=== PATIENT | female | born 1935 | race Caucasian/White ===

== ENCOUNTER 2018-03-26 11:23 | Emergency (ER) | payer MEDICARE ==
[2018-03-26] MEDS ORDERED: HYDROcodone/APAP 5-325MG 1 EACH TAB PO STA (11:54)
--- NOTE | 2018-03-26 11:54 | ED ---
Lower Extremity Injury HPI - General Chief Complaint: Extremity Injury, Lower Stated Complaint: LEFT LEG INJURY FROM FALL Time Seen by Provider: 03/26/18 11:41 Source: patient, RN notes reviewed, old records reviewed Mode of arrival: wheelchair Limitations: no limitations - History of Present Illness Initial Comments: This is an 83-year-old female the ER for evaluation patient resents today for evaluation and left tib-fib pain. Fall with left lower leg pain. Patient does have history of prior falls with more falls as of recent. She did not hit her head no loss of consciousness. Patient states she fell forward landing on her left knee. Denies any other complaints or injury MD Complaint: knee injury, leg injury -: minutes(s) Injury: Leg: Left, Knee: Left Type of Injury: blunt Place: home Severity: severe Severity scale (1-10): 8 Improves With: nothing Worsens With: weight bearing, movement, palpation Context: fall, direct blow Other Symptoms: other (None) Associated Symptoms: swelling - Related Data Home Medications Medication Instructions Recorded Confirmed Aspirin 81 mg PO DAILY 02/23/17 03/26/18 Calcium Carbonate [Calcium] 600 mg PO DAILY 02/23/17 03/26/18 Vit C/E/Zn/Coppr/Lutein/Zeaxan 1 cap PO DAILY 02/23/17 03/26/18 [Preservision Areds 2 Softgel] Losartan Potassium [Cozaar] 25 mg PO DAILY 03/26/18 03/26/18 Multivit-Min/FA/Lycopen/Lutein 1 tab PO DAILY 03/26/18 03/26/18 [Centrum Silver Tablet] Omeprazole [PriLOSEC] 20 mg PO AC-BRKFST 03/26/18 03/26/18 Pantoprazole Sodium [Protonix] 40 mg PO DAILY 03/26/18 03/26/18 Allergies Allergy/AdvReac Type Severity Reaction Status Date / Time lisinopril AdvReac Swelling Verified 03/26/18 11:50 Review of Systems ROS Statement: Those systems with pertinent positive or pertinent negative responses have been documented in the HPI. ROS Other: All systems not noted in ROS Statement are negative. Past Medical History Past Medical History: Hyperlipidemia, Hypertension, Osteoarthritis (OA) Additional Past Medical History / Comment(s): polio AGE 22. 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 History of Any Multi-Drug Resistant Organisms: None Reported Past Surgical History: Bowel Resection, Cholecystectomy Additional Past Surgical History / Comment(s): bladder suspension surgery 3, colonoscopy about 10 years ago showed diverticulosis, cholecystectomy, bilateral cataract surgery. Past Anesthesia/Blood Transfusion Reactions: No Reported Reaction Past Psychological History: No Psychological Hx Reported Smoking Status: Never smoker Past Alcohol Use History: None Reported Past Drug Use History: None Reported - Past Family History Father Family Medical History: Respiratory Disorder Mother Family Medical History: No Reported History Additional Family Medical History / Comment(s): lives to be 101 yo, liver failure Sister(s) Family Medical History: No Reported History Daughter(s) Family Medical History: No Reported History Son(s) Family Medical History: No Reported History General Exam Limitations: no limitations General appearance: alert, in no apparent distress Head exam: Present: atraumatic, normocephalic, normal inspection Eye exam: Present: normal appearance, PERRL, EOMI. Absent: scleral icterus, conjunctival injection, periorbital swelling ENT exam: Present: normal exam, mucous membranes moist Neck exam: Present: normal inspection. Absent: tenderness, meningismus, lymphadenopathy Respiratory exam: Present: normal lung sounds bilaterally. Absent: respiratory distress, wheezes, rales, rhonchi, stridor Cardiovascular Exam: Present: normal rhythm, tachycardia, normal heart sounds. Absent: systolic murmur, diastolic murmur, rubs, gallop, clicks GI/Abdominal exam: Present: soft, normal bowel sounds. Absent: distended, tenderness, guarding, rebound, rigid Extremities exam: Present: full ROM, normal capillary refill. Absent: normal inspection (Patient has significant deformity left lower extremity with significant swelling pain and tenderness. Bruising and anterior soriano), tenderness, pedal edema, joint swelling, calf tenderness Back exam: Present: normal inspection Neurological exam: Present: alert, oriented X3, CN II-XII intact Psychiatric exam: Present: normal affect, normal mood Skin exam: Present: warm, dry, intact, normal color. Absent: rash Course Vital Signs 03/26/18 03/26/18 11:38 15:00 Temperature 98.2 F Pulse Rate 105 H 94 Respiratory 18 20 Rate Blood Pressure 181/75 150/61 O2 Sat by Pulse 97 96 Oximetry - Reevaluation(s) Reevaluation #1: 03/26/18 15:17 Medical records reviewed Reevaluation #2: 03/26/18 15:17 Patient does have pain control Reevaluation #3: 03/26/18 15:18 Spoke with [facility] were agreeable for transfer of orthopedic trauma Medical Decision Making - Medical Decision Making 83 female the ER for evaluation, presents today for evaluation regards to fall. Patient is positive tib-fib fracture comminuted closed. Patient be transferred for orthopedic surgery in transfer regarding significant fracture - Radiology Data Radiology results: report reviewed (X-ray left tib-fib shows comminuted displaced fractures the proximal tibial metaphysis and fibular metaphysis), image reviewed Disposition Clinical Impression: Fall, Tibia/fibula fracture Narrative: Comminuted Displaced TibFib Fractures Disposition: OTHER INSTITUTION NOT DEFINED Condition: Fair Is patient prescribed a controlled substance at d/c from ED?: No Referrals: Narciso Pacheco DO [Primary Care Provider] - 1-2 days - Out of Hospital Transfer - Req. Specs Out of Hospital Transfer - Requested Specifics: Other Emergency Center ([facility])
--- NOTE | 2018-03-26 13:53 | XR ---
EXAMINATION TYPE: XR knee complete LT, XR tibia fibula LT DATE OF EXAM: 03/26/2018 CLINICAL HISTORY: Fall injury with pain. TECHNIQUE: Three views of the left knee are obtained. 2 views left tibia and fibula are acquired. COMPARISON: None. FINDINGS: Osseous structures are demineralized which is noted to lower radiographic sensitivity. There is acute comminuted displaced fracture through the fibular head proximal metaphysis with slight impaction and anterior displacement of the distal fracture fragment. There is acute comminuted minim ally displaced fracture through proximal tibial metaphysis with impaction and slight anterior displac ement of the distal fracture fragment. No additional acute distal fracture or dislocation in the left leg is present. No additional fracture or dislocation in the left knee is seen. Mild to moderate tricompartment joint space loss is noted. Moderate diffuse subcutaneous edema centered near fracture site is present. IMPRESSION: There are acute comminuted minimally displaced fractures through proximal tibial metaphy sis and proximal fibular metaphysis. (Initial encounter closed type post traumatic fracture).
[2018-03-26 15:02] VITALS: RESP 20
[2018-03-26] MEDS ORDERED: SODIUM CHLORIDE 0.9% 1,000 ML IV STA ×2 (15:15)
[2018-03-26] MEDS ORDERED: MORPHINE SULFATE 4 MG/ML SYRINGE IV STA (15:15)
[2018-03-26 16:10] LABS: Basophils # (A) 0.1 k/uL (0-0.2); Basophils % (A) 0 %; Eosinophils # (A) 0.1 k/uL (0-0.7); Eosinophils % (A) 1 %; HCT 37.9 % (34.0-46.0); HGB 12.7 gm/dL (11.4-16.0); Lymphocytes # (A) 1.9 k/uL (1.0-4.8); Lymphocytes % (A) 13 %; MCH 34.6 pg (25.0-35.0); MCHC 33.4 g/dL (31.0-37.0); MCV 103.5 fL (80.0-100.0); Macrocytosis Slight; Mean Platelet Volume 7.5; Monocytes # (A) 0.5 k/uL (0-1.0); Monocytes % (A) 4 %; Neutrophils # (A) 11.8 k/uL (1.3-7.7); Neutrophils % (A) 82 %; Platelet Count 325 k/uL (150-450); RBC 3.66 m/uL (3.80-5.40); RDW 13.4 % (11.5-15.5); WBC 14.5 k/uL (3.8-10.6)
[2018-03-26 16:19] LABS: ALT 35 U/L (9-52); AST 33 U/L (14-36); Albumin 3.6 g/dL (3.5-5.0); Alkaline Phosphatase 94 U/L (38-126); Anion Gap 6 mmol/L; Blood Urea Nitrogen 17 mg/dL (7-17); Calcium 9.5 mg/dL (8.4-10.2); Carbon Dioxide 25 mmol/L (22-30); Chloride 109 mmol/L (98-107); Glucose 102 mg/dL (74-99); Magnesium 1.8 mg/dL (1.6-2.3); Phosphorus 3.7 mg/dL (2.5-4.5); Potassium 4.8 mmol/L (3.5-5.1); Sodium 140 mmol/L (137-145); Total Bilirubin 0.3 mg/dL (0.2-1.3); Total Protein 6.9 g/dL (6.3-8.2)
[2018-03-26 16:25] LABS: Creatine Kinase 83 U/L (30-135)
[2018-03-26 16:29] LABS: INR 0.9 (<1.2); Prothrombin Time 10.2 sec (9.0-12.0)
[2018-03-26 16:32] VITALS: BP 192/86; PULSE 103; TEMP 98
[2018-03-26 16:38] LABS: Troponin I <0.012 ng/mL (0.000-0.034)
== END 2018-03-26 16:31 | disposition short-term general hospital (02) ==
LOC: EC 11:23
DX: S89.002A Unspecified physeal fracture of upper end of left tibia, initial encounter for closed fracture (principal); S89.202A Unspecified physeal fracture of upper end of left fibula, initial encounter for closed fracture; S89.92XA Unspecified injury of left lower leg, initial encounter; I10 Essential (primary) hypertension; M19.90 Unspecified osteoarthritis, unspecified site; Z79.82 Long term (current) use of aspirin; Z79.899 Other long term (current) drug therapy; Z88.8 Allergy status to other drugs, medicaments and biological substances; Z90.49 Acquired absence of other specified parts of digestive tract; W19.XXXA Unspecified fall, initial encounter; Y92.000 Kitchen of unspecified non-institutional (private) residence as the place of occurrence of the external cause
CPT/HCPCS: 99285; 96374; 96361; 36415; 80053; 82550; 82553; 83735; 84100; 84484; 85025; 85610; 85730; 73590; 73562; J2270

== ENCOUNTER → 2018-08-28 | Outpatient (CLI) | payer MEDICARE ==
--- NOTE | 2018-08-29 11:59 | MM ---
Reason for exam: screening (asymptomatic). Last mammogram was performed 1 year and 6 months ago. History: Patient is postmenopausal. Benign stereotactic core biopsy of the right breast, June 27, 1999. 2 benign cyst aspirations of the left breast. Excisional biopsy of the left breast. Physical Findings: A clinical breast exam by your physician is recommended on an annual basis and results should be correlated with mammographic findings. MG 3D Screening Mammo W/Cad Bilateral CC and MLO view(s) were taken. Prior study comparison: March 12, 2017, bilateral MG 3d screening mammo w/cad. February 07, 2016, bilateral MG 3d screening mammo w/cad. The breast tissue is heterogeneously dense. This may lower the sensitivity of mammography. Finding: There are typically benign vascular, round, linear calcifications in both breasts. There is no discrete abnormality. ASSESSMENT: Benign, BI-RAD 2 RECOMMENDATION: Routine screening mammogram of both breasts in 1 year.
== END | disposition home or self-care (01) ==
LOC: RADMAMWWP 14:53
PROVIDERS: ATTEND Family Medicine
DX: Z12.31 Encounter for screening mammogram for malignant neoplasm of breast (principal)
CPT/HCPCS: 77063; 77067

== ENCOUNTER → 2019-11-11 | Outpatient (CLI) | payer MEDICARE ==
--- NOTE | 2019-12-14 14:41 | EM ---
EVENT MONITOR EVENT MONITOR: The patient was monitored between November 10 and December 11, 2019. The rhythm strip revealed sinus mechanism with a single PVC. There was one episode of paroxysmal atrial tachycardia on November 22, 2019. No pauses were noted and no episodes of ventricular tachycardia were noted. The PVCs and ventricular bigeminy were asymptomatic. MMODL / IJN: [id number] /
== END | disposition home or self-care (01) ==
LOC: RADECHMAIN 11:51
PROVIDERS: ATTEND Family Medicine
DX: I48.0 Paroxysmal atrial fibrillation (principal)
CPT/HCPCS: 93270

== ENCOUNTER 2019-12-16 16:07 | Inpatient (IN) | payer MEDICARE ==
[2019-12-16] MEDS ORDERED: ACETAMINOPHEN TAB 325 MG TAB PO STA (16:20)
--- NOTE | 2019-12-16 16:23 | ED ---
General Adult HPI - General Chief complaint: Weakness Stated complaint: Weakness Time Seen by Provider: 12/16/19 16:14 Source: patient, EMS, RN notes reviewed Mode of arrival: EMS Limitations: no limitations - History of Present Illness Initial comments: Patient is a pleasant 84-year-old female presenting to the emergency Department with complaints of general weakness. Patient did feel a little bit fatigued yesterday. Patient feels a little bit more weak today. Weakness is generalized, not isolated. Patient does have chronic unchanged left leg w eakness from history of polio 65 years ago. No confusion. No speech problems. No abdominal pain. No cough or dyspnea. No dysuria. No history of similar symptoms previously. Patient did have a mild fall prior to arrival however denies any injury. - Related Data Home Medications Medication Instructions Recorded Confirmed Calcium Carbonate [Calcium] 600 mg PO DAILY 02/23/17 12/16/19 Vit C/E/Zn/Coppr/Lutein/Zeaxan 1 cap PO DAILY 02/23/17 12/16/19 [Preservision Areds 2 Softgel] Multivit-Min/FA/Lycopen/Lutein 1 tab PO DAILY 03/26/18 12/16/19 [Centrum Silver Tablet] Aspirin EC [Ecotrin Low Dose] 81 mg PO DAILY 12/16/19 12/16/19 Losartan [Cozaar] 50 mg PO DAILY 12/16/19 12/16/19 Vitamin B Complex 1 cap PO DAILY 12/16/19 12/16/19 Allergies Allergy/AdvReac Type Severity Reaction Status Date / Time adhesive Allergy Rash/Hives Verified 12/16/19 17:53 lisinopril Allergy Anaphylaxis Verified 12/16/19 17:53 Review of Systems ROS Statement: Those systems with pertinent positive or pertinent negative responses have been documented in the HPI. ROS Other: All systems not noted in ROS Statement are negative. Constitutional: Denies: fever Eyes: Denies: eye pain ENT: Denies: ear pain Respiratory: Denies: cough, dyspnea Cardiovascular: Denies: chest pain Endocrine: Reports: fatigue Gastrointestinal: Denies: abdominal pain Genitourinary: Denies: dysuria Musculoskeletal: Denies: back pain Skin: Denies: rash Neurological: Reports: as per HPI. Denies: headache, confusion Past Medical History Past Medical History: Hyperlipidemia, Hypertension, Osteoarthritis (OA) Additional Past Medical History / Comment(s): polio AGE 22. 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 History of Any Multi-Drug Resistant Organisms: None Reported Past Surgical History: Bowel Resection, Cholecystectomy Additional Past Surgical History / Comment(s): bladder suspension surgery 3, colonoscopy about 10 years ago showed diverticulosis, cholecystectomy, bilateral cataract surgery. Past Anesthesia/Blood Transfusion Reactions: No Reported Reaction Past Psychological History: No Psychological Hx Reported Smoking Status: Never smoker Past Alcohol Use History: None Reported Past Drug Use History: None Reported - Past Family History Father Family Medical History: Respiratory Disorder Mother Family Medical History: No Reported History Additional Family Medical History / Comment(s): lives to be 101 yo, liver failure Sister(s) Family Medical History: No Reported History Daughter(s) Family Medical History: No Reported History Son(s) Family Medical History: No Reported History General Exam Limitations: no limitations General appearance: alert, in no apparent distress Head exam: Present: normocephalic Eye exam: Present: normal appearance, PERRL, EOMI. Absent: nystagmus ENT exam: Present: normal oropharynx Neck exam: Present: normal inspection Respiratory exam: Present: normal lung sounds bilaterally Cardiovascular Exam: Present: regular rate, normal rhythm GI/Abdominal exam: Present: soft. Absent: tenderness Extremities exam: Present: normal inspection Neurological exam: Present: alert, CN II-XII intact. Absent: motor sensory def icit Expanded Patient oriented to: Present: person, place, time Speech: Present: fluid speech Cranial nerves: EOM's Intact: Normal, Facial Sensation: Normal Sensory exam: Upper Extremity Light Touch: Normal, Lower Extremity Light Touch: Normal Motor strength exam: RUE: 5, LUE: 5, RLE: 5, LLE: 5 Eye Response: (4) open spontaneously Motor Response: (6) obeys commands Verbal Response: (5) oriented Psychiatric exam: Present: normal affect, normal mood Skin exam: Present: normal color. Absent: rash Course Vital Signs 12/16/19 16:08 Temperature 99.9 F H Pulse Rate 77 Respiratory 16 Rate Blood Pressure 144/79 O2 Sat by Pulse 98 Oximetry EKG Findings - EKG Comments: EKG Findings:: Normal sinus rhythm 98. [place] 146. QRS 74. QT 326. QTc 416. Normal axis. Normal QRS. No acute ST change. Medical Decision Making - Medical Decision Making Patient reevaluated and updated. Case was discussed in detail with Dr. Lima, covering for Dr. Castañeda, who will admit. - Lab Data Result diagrams: 12/16/19 16:26 12/16/19 16:26 Lab Results 12/16/19 12/16/19 12/16/19 Range/Units 16:26 16: 16:26 WBC 15.8 H (3.8-10.6) k/uL RBC 3.47 L (3.80-5.40) m/uL Hgb 11.8 (11.4-16.0) gm/dL Hct 36.6 (34.0-46.0) % MCV 105.3 H (80.0-100.0) fL MCH 34.1 (25.0-35.0) pg MCHC 32.3 (31.0-37.0) g/dL RDW 12.7 (11.5-15.5) % Plt Count 276 (150-450) k/uL Neutrophils % 90 % Lymphocytes % 4 % Monocytes % 5 % Eosinophils % 1 % Basophils % 0 % Neutrophils # 14.2 H (1.3-7.7) k/uL Lymphocytes # 0.6 L (1.0-4.8) k/uL Monocytes # 0.7 (0-1.0) k/uL Eosinophils # 0.1 (0-0.7) k/uL Basophils # 0.0 (0-0.2) k/uL Macrocytosis Slight PT 10.2 (9.0-12.0) sec INR 1.0 (<1.2) APTT 23.3 (22.0-30.0) sec Sodium (137-145) mmol/L Potassium (3.5-5.1) mmol/L Chloride (98-107) mmol/L Carbon Dioxide (22-30) mmol/L Anion Gap mmol/L BUN (7-17) mg/dL Creatinine (0.52-1.04) mg/dL Est GFR (CKD-EPI)AfAm (>60 ml/min/1.73 sqM) Est GFR (CKD-EPI)NonAf (>60 ml/min/1.73 sqM) Glucose (74-99) mg/dL Plasma Lactic Acid Rafael (0.7-2.0) mmol/L Calcium (8.4-10.2) mg/dL Total Bilirubin (0.2-1.3) mg/dL AST (14-36) U/L ALT (4-34) U/L Alkaline Phosphatase (38-126) U/L Troponin I (0.000-0.034) ng/mL Total Protein (6.3-8.2) g/dL Albumin (3.5-5.0) g/dL Urine Color Yellow Urine Appearance Turbid H (Clear) Urine pH 5.5 (5.0-8.0) Ur Specific [place] 1.017 (1.001-1.035) Urine Protein 1+ H (Negative) Urine Glucose (UA) Negative (Negative) Urine Ketones Negative (Negative) Urine Blood Moderate H (Negative) Urine Nitrite Positive H (Negative) Urine Bilirubin Negative (Negative) Urine Urobilinogen <2.0 (<2.0) mg/dL Ur Leukocyte Esterase Large H (Negative) Urine RBC 9 H (0-5) /hpf Urine WBC >182 H (0-5) /hpf Urine WBC Clumps Many H (None) /hpf Ur Squamous Epith Cells 16 H (0-4) /hpf Amorphous Sediment Rare H (None) /hpf Urine Bacteria Many H (None) /hpf Hyaline Casts 9 H (0-2) /lpf 12/16/19 12/16/19 12/16/19 Range/Units 16:26 16:26 16:26 WBC (3.8-10.6) k/uL RBC (3.80-5.40) m/uL Hgb (11.4-16.0) gm/dL Hct (34.0-46.0) % MCV (80.0-100.0) fL MCH (25.0-35.0) pg MCHC (31.0-37.0) g/dL RDW (11.5-15.5) % Plt Count (150-450) k/uL Neutrophils % % Lymphocytes % % Monocytes % % Eosinophils % % Basophils % % Neutrophils # (1.3-7.7) k/uL Lymphocytes # (1.0-4.8) k/uL Monocytes # (0-1.0) k/uL Eosinophils # (0-0.7) k/uL Basophils # (0-0.2) k/uL Macrocytosis PT (9.0-12.0) sec INR (<1.2) APTT (22.0-30.0) sec Sodium 137 (137-145) mmol/L Potassium 4.1 (3.5-5.1) mmol/L Chloride 108 H (98-107) mmol/L Carbon Dioxide 21 L (22-30) mmol/L Anion Gap 8 mmol/L BUN 28 H (7-17) mg/dL Creatinine 0.76 (0.52-1.04) mg/dL Est GFR (CKD-EPI)AfAm 83 (>60 ml/min/1.73 sqM) Est GFR (CKD-EPI)NonAf 72 (>60 ml/min/1.73 sqM) Glucose 129 H (74-99) mg/dL Plasma Lactic Acid Rafael 1.5 (0.7-2.0) mmol/L Calcium 8.3 L (8.4-10.2) mg/dL Total Bilirubin 1.1 (0.2-1.3) mg/dL AST 73 H (14-36) U/L ALT 53 H (4-34) U/L Alkaline Phosphatase 144 H (38-126) U/L Troponin I 0.566 H* (0.000-0.034) ng/mL Total Protein 6.6 (6.3-8.2) g/dL Albumin 3.3 L (3.5-5.0) g/dL Urine Color Urine Appearance (Clear) Urine pH (5.0-8.0) Ur Specific [place] (1.001-1.035) Urine Protein (Negative) Urine Glucose (UA) (Negative) Urine Ketones (Negative) Urine Blood (Negative) Urine Nitrite (Negative) Urine Bilirubin (Negative) Urine Urobilinogen (<2.0) mg/dL Ur Leukocyte Esterase (Negative) Urine RBC (0-5) /hpf Urine WBC (0-5) /hpf Urine WBC Clumps (None) /hpf Ur Squamous Epith Cells (0-4) /hpf Amorphous Sediment (None) /hpf Urine Bacteria (None) /hpf Hyaline Casts (0-2) /lpf - Radiology Data Radiology results: report reviewed (Computed tomography scan the brain shows atrophy. No acute intercranial abnormality.), image reviewed (Chest x-ray shows no acute process. ) Disposition Clinical Impression: Urinary tract infection, NSTEMI (non-ST elevated myocardial infarction) Disposition: ADMITTED IP TO THIS HOSP Condition: Serious Is patient prescribed a controlled substance at d/c from ED?: No Referrals: Narciso Pacheco DO [Primary Care Provider] - 1-2 days Decision Time: 18:09
[2019-12-16] MEDS: SODIUM CHLORIDE 0.9% 1,000 ML IV SCH (16:31)
[2019-12-16 16:42] LABS: Basophils % (A) 0 %; Eosinophils # (A) 0.1 k/uL (0-0.7); Eosinophils % (A) 1 %; HCT 36.6 % (34.0-46.0); HGB 11.8 gm/dL (11.4-16.0); Lymphocytes # (A) 0.6 k/uL (1.0-4.8); Lymphocytes % (A) 4 %; MCH 34.1 pg (25.0-35.0); MCHC 32.3 g/dL (31.0-37.0); MCV 105.3 fL (80.0-100.0); Macrocytosis Slight; Mean Platelet Volume 8.4; Monocytes # (A) 0.7 k/uL (0-1.0); Monocytes % (A) 5 %; Neutrophils # (A) 14.2 k/uL (1.3-7.7); Neutrophils % (A) 90 %; Platelet Count 276 k/uL (150-450); RBC 3.47 m/uL (3.80-5.40); RDW 12.7 % (11.5-15.5); WBC 15.8 k/uL (3.8-10.6)
[2019-12-16 16:54] LABS: Albumin 3.3 g/dL (3.5-5.0); Calcium 8.3 mg/dL (8.4-10.2); Potassium 4.1 mmol/L (3.5-5.1); Total Bilirubin 1.1 mg/dL (0.2-1.3); Total Protein 6.6 g/dL (6.3-8.2)
[2019-12-16 16:56] LABS: Partial Thromboplastin Time 23.3 sec (22.0-30.0); Prothrombin Time 10.2 sec (9.0-12.0)
--- NOTE | 2019-12-16 17:22 | CT ---
EXAMINATION TYPE: CT brain wo con DATE OF EXAM: 12/16/2019 COMPARISON: None HISTORY: weakness CT DLP: 1062.4 mGycm Automated exposure control for dose reduction was used. There is cerebral cortical atrophy. There is no mass effect nor midline shift. There is no sign of in tracranial hemorrhage. Calvarium is intact. There is hyperostosis frontalis. IMPRESSION: Cerebral atrophy. No acute intracranial abnormality.
--- NOTE | 2019-12-16 17:24 | XR ---
EXAMINATION TYPE: XR chest 2V DATE OF EXAM: 12/16/2019 COMPARISON: NONE HISTORY: Fever. Chest pain TECHNIQUE: 2 views FINDINGS: There is no heart failure nor confluent pneumonic infiltrate. Costophrenic angles are clear . Thoracic aorta is atheromatous. There is bilateral shoulder prosthesis. IMPRESSION: No active cardiopulmonary disease. Atheromatous aorta.
[2019-12-16 17:50] LABS: Amorphous Sediment,Urine Rare /hpf; Appearance,Urine Turbid (Clear); Bacteria,Urine Many /hpf; Bilirubin,Urine Negative (Negative); Blood,Urine Moderate (Negative); Color,Urine Yellow; Glucose,Urine (UA) Negative (Negative); Hyaline Casts,Urine 9 /lpf (0-2); Ketones,Urine Negative (Negative); Leukocyte Esterase,Urine Large (Negative); Nitrite,Urine Positive (Negative); PH, Urine 5.5 (5.0-8.0); Protein,Urine 1+ (Negative); RBC,Urine 9 /hpf (0-5); Specific Gravity,Urine 1.017 (1.001-1.035); Squamous Epithelial Cell,Urine 16 /hpf (0-4); Urobilinogen,Urine <2.0 mg/dL (<2.0); WBC,Urine >182 /hpf (0-5)
[2019-12-16] MEDS ORDERED: HEPARIN SODIUM,PORCINE 5,000 UNIT/ML 1 ML VIAL IV PRN (18:10)
[2019-12-16] MEDS ORDERED: ASPIRIN 81 MG PO STA (18:10)
[2019-12-16] MEDS ORDERED: NITROGLYCERIN SL TABS 0.4 MG TAB SUBLINGUAL PRN (18:10)
[2019-12-16] MEDS ORDERED: cefTRIAXone IN SWFI 1,000 MG/10 ML SYRINGE IVP STA (18:10)
[2019-12-16] MEDS ORDERED: HEPARIN SODIUM,PORCINE 5,000 UNIT/ML 1 ML VIAL IV ONE (18:10)
[2019-12-16] MEDS: HEPARIN SOD,PORK IN 0.45% NACL 25,000 UNIT in 0.45% NACL 1 250ML.BAG IV SCH (18:51)
[2019-12-17 05:55] LABS: Mean Platelet Volume 8.5; Platelet Count 267 k/uL (150-450)
[2019-12-17] MEDS: SODIUM CHLORIDE 0.9% 1,000 ML IV SCH ×2 (05:57→12:55)
[2019-12-17 06:40] LABS: Cholesterol 109 mg/dL (<200); HDL Cholesterol 44 mg/dL (40-60); LDL Cholesterol,Calculated 48 mg/dL (0-99); Triglycerides 86 mg/dL (<150)
[2019-12-17] MEDS ORDERED: ASPIRIN 325 MG TAB PO SCH (09:00)
[2019-12-17] MEDS ORDERED: NON FORMULARY DRUG (Aspirin Ec 81 MG Tablet.Dr) PO SCH (09:00)
[2019-12-17] MEDS: ASPIRIN 81 MG PO SCH (09:41)
[2019-12-17] MEDS: MULTIVITAMINS, THERA 1 EACH TAB PO SCH (09:41)
[2019-12-17] MEDS: VIT A,C & E-LUTEIN-MINERALS 1 EACH TAB PO SCH (09:41)
[2019-12-17] MEDS: LOSARTAN 50 MG TAB PO SCH (09:41)
[2019-12-17] MEDS: CALCIUM CARBONATE 500 MG CHEWABLE PO SCH (09:41)
[2019-12-17] MEDS: NON FORMULARY DRUG (Vitamin B Complex [Vitamin B Complex] 1 EACH Capsule) PO SCH (09:42)
--- NOTE | 2019-12-17 11:27 | ECHOF ---
Referral Reason:nstemi MEASUREMENTS -------- HEIGHT: 124.5 cm WEIGHT: 65.3 kg BP: 136/68 IVSd: 1.4 cm (0.6 - 1.1) LVIDd: 3.9 cm (3.9 - 5.3) LVPWd: 1.4 cm (0.6 - 1.1) EDV(Teich): 65 ml IVSs: 1.7 cm LVIDs: 2.9 cm LVPWs: 1.6 cm %IVS Thck: 21 % ESV(Teich): 32 ml EF(Teich): 51 % %FS: 26 % SV(Teich): 33 ml RVIDd: 3.3 cm (< 3.3) IVC: 24.92 mm RA Diam: 3.9 cm LVLd A4C: 7.6 cm LVEDV MOD A4C: 78 ml LVLs A4C: 6.4 cm LVESV MOD A4C: 43 ml LVEF MOD A4C: 45 % SV MOD A4C: 35 ml LVLd A2C: 7.7 cm LVEDV MOD A2C: 76 ml LVLs A2C: 6.4 cm LVESV MOD A2C: 42 ml LVEF MOD A2C: 44 % SV MOD A2C: 33 ml EF Biplane: 46 % LVEDV MOD BP: 77 ml LVESV MOD BP: 42 ml LALs A4C: 5.9 cm LAAs A4C: 21.4 cm LAESV A-L A4C: 66 ml LAESV MOD A4C: 62 ml LALs A2C: 5.1 cm LAAs A2C: 18.3 cm LAESV A-L A2C: 56 ml LAESV MOD A2C: 55 ml LAESV(A-L): 65 ml LAESV Index (A-L): 46.36 ml/m Ao Diam: 2.6 cm (2.0 - 3.7) AV Cusp: 1.8 cm (1.5 - 2.6) EPSS: 0.4 cm MV E Carlos: 0.47 m/s MV DecT: 299 ms MV Dec [place]: 1.6 m/s MV A Carlos: 1.03 m/s MV E/A Ratio: 0.46 MV PHT: 87 ms LVOT Vmax: 0.85 m/s LVOT maxP.89 mmHg AV Vmax: 1.55 m/s AV maxP.67 mmHg AR Vmax: 4.20 m/s AR maxP.64 mmHg AR PHT: 446 ms AR Dec Time: 1538 ms AR Dec [place]: 2.7 m/s TR Vmax: 3.99 m/s TR maxP.82 mmHg RAP: 15.00 mmHg RVSP: 78.82 mmHg MV EF SLOPE: 115.43 mm/s (70 - 150) MV EXCURSION: 11.53 mm (> 18.000) FINDINGS -------- This was a technically adequate study. The left ventricular size is normal. There is moderate concentric left ventricular hypertrophy. O verall left ventricular systolic function is mildly impaired with, an EF between 45 - 50 %. Mitral Doppler inflow pattern suggests diastolic filling abnormality {E/E'}. Mid lateral LV wall motion is hypokinetic. Mid inferoseptal LV wall motion is hypokinetic. The right ventricle is mildly enlarged. LA is severely dilated >40 ml/m2 The right atrial size is normal. Interatrial and interventricular septum intact. The aortic valve is trileaflet and appears structurally normal. There is mild aortic regurgitation. There is no evidence of aortic stenosis. Moderate mitral regurgitation is present. Moderate to severe tricuspid regurgitation present. There is severe pulmonary hypertension. The r ight ventricular systolic pressure, as measured by Doppler, is 78.82mmHg. There is no pulmonic regurgitation present. The aortic root size is normal. The inferior vena cava is dilated with poor inspiratory collapse which is consistent with estimated r ight atrial pressure of 15 mmHg. There is no pericardial effusion. CONCLUSIONS -------- 1. The left ventricular size is normal. 2. There is moderate concentric left ventricular hypertrophy. 3. Overall left ventricular systolic function is mildly impaired with, an EF between 45 - 50 %. 4. Mitral Doppler inflow pattern suggest diastolic filling abnormality {E/E'}. 5. Mid lateral LV wall motion is hypokinetic. 6. Mid inferoseptal LV wall motion is hypokinetic. 7. The right ventricle is mildly enlarged. 8. LA is severely dilated >40 ml/m2 9. There is mild aortic regurgitation. 10. Moderate mitral regurgitation is present. 11. Moderate to severe tricuspid regurgitation present. 12. There is severe pulmonary hypertension. 13. The right ventricular systolic pressure, as measured by Doppler, is 78.82mmHg. 14. The inferior vena cava is dilated with poor inspiratory collapse which is consistent with estimat ed right atrial pressure of 20 mmHg. SODA FLAKER: Samina Patel RDCS
--- NOTE | 2019-12-17 11:41 | P.HPIM ---
History of Present Illness H&P Date: 12/17/19 Chief Complaint: Weakness HISTORY OF PRESENT ILLNESS This is an 84-year-old female one of Dr. Pacheco and Dr. 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 Patient states that yesterday she had sudden onset of increased weakness with significant heaviness in her arm. She denied having any chest pain or shortness of breath. No heaviness in her chest. Patient came into [facility] emergency center for evaluation. EKG with normal sinus rhythm with no acute ST changes. Temperature 99.9, heart rate 77, blood pressure 144/79. WBC 15.8, hemoglobin 11.8. Urinalysis was turbid, nitrite positive, blood moderate, leukoesterase large, squamous cell 16, bacteria many. Total bilirubin 1.1, AST 73, ALT 53, alk phos is 144. Troponin 0.566, 1.840, 1.550. Triglycerides 86, cholesterol 109, LDL 48, HDL 44. CAT scan of the brain revealed cerebral atrophy. No acute intracranial abnormality. Echocardiogram reveals EF of 45- 50% with moderate concentric left hypertrophy, LA severely dilated, mild aortic regurgitation, moderate mitral regurgitation, moderate to severe tricuspid regurgitation, severe pulmonary hypertension. Chest x-ray reveals no acute cardiopulmonary disease. Patient was admitted to the cardio stepdown unit and consult with cardiology requested. REVIEW OF SYSTEMS Constitutional: No fever, no chills, no night sweats. No weight change. No weakness, fatigue or lethargy. No daytime sleepiness. EENT: No headache. No blurred vision or double vision, no loss of vision. No loss of Hearing, no ringing in the ears, no dizziness. No nasal drainage or congestion. No epistaxis. No sore throat. Lungs: No shortness of breath, cough, no sputum production. No wheezing. Cardiovascular: No chest pain, no lower extremity edema. No palpitations. No paroxysmal nocturnal dyspnea. No orthopnea. No lightheadedness or dizziness. No syncopal episodes. Abdominal: No abdominal pain. No nausea, vomiting. No diarrhea. No constipation. No bloody or tarry stools.. No loss of appetite. Genitourinary: No dysuria, increased frequency, urgency. No urinary retention. Musculoskeletal: No myalgias. No muscle weakness, no gait dysfunction, no frequent falls. No back pain. No neck pain. Integumentary: No wounds, no lesions. No rash or pruritus. No unusual bruising. No change in hair or nails. Neurologic: No aphasia. No facial droop. No change in mentation. No head injury. No headache. No paralysis. No paresthesia. Psychiatric: No depression. No anxiety. No mood swings. Endocrine: No abnormal blood sugars. No weight change. No excessive sweating or thirst. No cold intolerance. SOCIAL HISTORY Patient is a lifelong nonsmoker, no marijuana use or alcohol use. She lives at home with her of 66 years. Patient's daughter lives next door and son is also nearby. She has been at [facility] in the past for subacute rehab following admission at [facility]. FAMILY HISTORY Father at age 65 from mesothelioma with asbestos exposure. Mother at age 101 from old age and liver failure. Patient has 2 sisters and both are living. One has history of COPD and one of fibromyalgia. Patient does not have any brothers. Patient has 1 son and 1 daughter with no major medical problems. PHYSICAL EXAMINATION Gen: This is an 84-year-old female. Patient is sitting up in bed and appears to be comfortable and in no acute distress. HEENT: Head is atraumatic, normocephalic. Pupils equal, round. Sclerae is anicteric. NECK: Supple. No JVD. No lymphadenopathy. No thyromegaly. LUNGS: Clear to auscultation. No wheezes or rhonchi. No intercostal retractions. HEART: Regular rate and rhythm. Systolic murmur. ABDOMEN: Soft. Bowel sounds are present. No masses. No tenderness. EXTREMITIES: No pedal edema. No calf tenderness. Dorsalis pedis +2 bilaterally. NEUROLOGICAL: Patient is awake, alert and oriented x3. Cranial nerves 2 through 12 are grossly intact. ASSESSMENT AND PLAN 1. Non-ST elevated myocardial infarction presenting with weakness and heaviness in her arms. Cardiology consult appreciated. Echocardiogram as above. Continue aspirin 81 mg daily, heparin drip. Most likely patient will require heart catheterization. 2. Hypertension and hypertensive cardiovascular disease. Continue losartan 50 mg daily. 3. Hyperlipidemia. Patient has been on Lipitor in the past. Patient is not currently on statin. 4. AMD. Continue PreserVision 1 tablet once every day. 5. History of polio syndrome with left leg weakness. 6. History of diverticulitis and partial colectomy, stable. 7. DVT prophylaxis. Patient is on heparin drip. 8. GI prophylaxis. Continue Pepcid 20 mg PO every 12 hours. 9. Possible acute urinary tract infection. Urinalysis does show elevated squamous cells. Patient is on ceftriaxone. Urine cultures in progress. Patient will be admitted to the hospital for a minimum of 2 night stay. Discharge plan: Most likely return home. Impression and plan of care have been directed as dictated by the signing physician. Ann Dunne nurse practitioner acting as scribe for signing physi jame. Past Medical History Past Medical History: Hyperlipidemia, Hypertension, Osteoarthritis (OA) Additional Past Medical History / Comment(s): polio AGE 22. 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 History of Any Multi-Drug Resistant Organisms: None Reported Past Surgical History: Bowel Resection, Cholecystectomy Additional Past Surgical History / Comment(s): bladder suspension surgery 3, colonoscopy about 10 years ago showed diverticulosis, cholecystectomy, bilateral cataract surgery. Past Anesthesia/Blood Transfusion Reactions: No Reported Reaction Past Psychological History: No Psychological Hx Reported Smoking Status: Never smoker Past Alcohol Use History: None Reported Past Drug Use History: None Reported - Past Family History Father Family Medical History: Respiratory Disorder Mother Family Medical History: No Reported History Additional Family Medical History / Comment(s): lives to be 101 yo, liver failure Sister(s) Family Medical History: COPD, Fibromyalgia Daughter(s) Family Medical History: No Reported History Son(s) Family Medical History: Myocardial Infarction ([place]) Medications and Allergies Home Medications Medication Instructions Recorded Confirmed Type Calcium Carbonate [Calcium] 600 mg PO DAILY 02/23/17 12/16/19 History Vit C/E/Zn/Coppr/Lutein/Zeaxan 1 cap PO DAILY 02/23/17 12/16/19 History [Preservision Areds 2 Softgel] Multivit-Min/FA/Lycopen/Lutein 1 tab PO DAILY 03/26/18 12/16/19 History [Centrum Silver Tablet] Aspirin EC [Ecotrin Low Dose] 81 mg PO DAILY 12/16/19 12/16/19 History Losartan [Cozaar] 50 mg PO DAILY 12/16/19 12/16/19 History Vitamin B Complex 1 cap PO DAILY 12/16/19 12/16/19 History Allergies Allergy/AdvReac Type Severity Reaction Status Date / Time adhesive Allergy Rash/Hives Verified 12/16/19 17:53 lisinopril Allergy Anaphylaxis Verified 12/16/19 17:53 Physical Exam Vitals: Vital Signs Temp Pulse Pulse Resp BP BP Pulse Ox 12/17/19 04:00 99.3 F 89 16 136/68 97 12/17/19 00:00 98.9 F 76 18 154/70 97 12/16/19 20:00 98.9 F 82 16 140/89 97 12/16/19 18:54 98.9 F 82 16 140/89 97 12/16/19 18:48 98.3 F 76 16 156/70 96 12/16/19 18:17 84 16 143/76 98 12/16/19 16:08 99.9 F H 77 16 144/79 98 Intake and Output 12/16/19 12/17/19 12/17/19 22:59 06:59 14:59 Other: Voiding Method Bedside Commode Bedside Commode # Voids 1 Weight 63.049 kg 65.7 kg Results CBC & Chem 7: 12/17/19 05:31 12/16/19 16:26 Labs: Abnormal Lab Results - Last 24 Hours (Table) 12/16/19 12/16/19 12/16/19 Range/Units 16:26 16:26 16:26 WBC 15.8 H (3.8-10.6) k/uL RBC 3.47 L (3.80-5.40) m/uL MCV 105.3 H (80.0-100.0) fL Neutrophils # 14.2 H (1.3-7.7) k/uL Lymphocytes # 0.6 L (1.0-4.8) k/uL APTT (22.0-30.0) sec Chloride 108 H (98-107) mmol/L Carbon Dioxide 21 L (22-30) mmol/L BUN 28 H (7-17) mg/dL Glucose 129 H (74-99) mg/dL Calcium 8.3 L (8.4-10.2) mg/dL AST 73 H (14-36) U/L ALT 53 H (4-34) U/L Alkaline Phosphatase 144 H (38-126) U/L Troponin I (0.000-0.034) ng/mL Albumin 3.3 L (3.5-5.0) g/dL Urine Appearance Turbid H (Clear) Urine Protein 1+ H (Negative) Urine Blood Moderate H (Negative) Urine Nitrite Positive H (Negative) Ur Leukocyte Esterase Large H (Negative) Urine RBC 9 H (0-5) /hpf Urine WBC >182 H (0-5) /hpf Urine WBC Clumps Many H (None) /hpf Ur Squamous Epith Cells 16 H (0-4) /hpf Amorphous Sediment Rare H (None) /hpf Urine Bacteria Many H (None) /hpf Hyaline Casts 9 H (0-2) /lpf 12/16/19 12/17/19 12/17/19 Range/Units 16:26 00:18 05:31 WBC (3.8-10.6) k/uL RBC (3.80-5.40) m/uL MCV (80.0-100.0) fL Neutrophils # (1.3-7.7) k/uL Lymphocytes # (1.0-4.8) k/uL APTT 58.8 H 48.6 H (22.0-30.0) sec Chloride (98-107) mmol/L Carbon Dioxide (22-30) mmol/L BUN (7-17) mg/dL Glucose (74-99) mg/dL Calcium (8.4-10.2) mg/dL AST (14-36) U/L ALT (4-34) U/L Alkaline Phosphatase (38-126) U/L Troponin I 0.566 H* (0.000-0.034) ng/mL Albumin (3.5-5.0) g/dL Urine Appearance (Clear) Urine Protein (Negative) Urine Blood (Negative) Urine Nitrite (Negative) Ur Leukocyte Esterase (Negative) Urine RBC (0-5) /hpf Urine WBC (0-5) /hpf Urine WBC Clumps (None) /hpf Ur Squamous Epith Cells (0-4) /hpf Amorphous Sediment (None) /hpf Urine Bacteria (None) /hpf Hyaline Casts (0-2) /lpf Microbiology - Last 24 Hours (Table) 12/16/19 16:26 Urine Culture - Preliminary Urine,Voided Thrombosis Risk Factor Assmnt - Choose All That Apply Each Factor Represents 1 point: Obesity (BMI >25) Other Risk Factors: Yes Each Risk Factor Represents 3 Points: Age 75 years or older Thrombosis Risk Factor Assessment Total Risk Factor Score: 4 Thrombosis Risk Factor Assessment Level: Moderate Risk
--- NOTE | 2019-12-17 12:25 | P.CRDCN ---
History of Present Illness Consult date: 12/17/19 History of present illness: CHIEF COMPLAINT: NSTEMI HISTORY OF PRESENT ILLNESS: 84-year-old female with a history of hypertension and hyperlipidemia who presented to the emergency room with a chief complaint of weakness. 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 Patient was found to have UTI with leukocytosis. She was started on antibiotics. Patient reports she has been feeling weak for the past few days. She reports she ambulates with a walker at home but has been having difficulty and requiring the assistance of her . Patient denies any chest pain or pressure. She denies shortness of breath, cough or congestion. Denies palpitations. Denies dizziness or lightheadedness. DIAGNOSTICS: EKG reveals sinus rhythm Chest xray no active cardiopulmonary disease Laboratory data: WBC 15.8. Platelet count 276. Sodium 137. Potassium 4.1. BUN 28. Creatinine 0.76. Lactic acid 1.5. Troponin 0.566. Current home cardiac medications include Cozaar 50 mg daily and aspirin 81 mg daily REVIEW OF SYSTEMS: CONSTITUTIONAL: Denies fever or chills. Reports generalized fatigue and weakness HEENT: Denies blurred vision, vision changes, or eye pain. Denies hemoptysis CARDIOVASCULAR: Denies chest pain, orthopnea, PND or palpitations RESPIRATORY: No shortness of breath. GASTROINTESTINAL: Denies abdominal pain. Denies nausea or vomiting. HEMATOLOGIC: Denies bleeding disorders. GENITOURINARY: Denies any blood in urine. SKIN: Denies pruitis. Denies rash. PHYSICAL EXAM: VITAL SIGNS: Reviewed. GENERAL: Well-developed in no acute distress. HEENT: Head is normocephalic. Pupils are equal, round. Sclerae anicteric. Mucous membranes of the mouth are moist. Neck supple. No JVD or thyromegaly LUNGS: Respirations even and unlabored. Lungs essentially clear to auscultation bilaterally. HEART: Regular rate and rhythm. S1 and S2 heard. ABDOMEN: Soft. Nondistended. Nontender. EXTREMITIES: Normal range of motion. No clubbing or cyanosis. Peripheral pulses intact. No lower extremity edema NEUROLOGIC: Awake and alert. Oriented x 3. ASSESSMENT: Generalized weakness Urinary tract infection Leukocytosis Non ST elevated myocardial infarction Hypertension Hyperlipidemia PLAN: Resume home cardiac medications Continue IV heparin at this time Obtain additional troponin Obtain 2-D echo to assess cardiac structure and function Further recommendations pending patient's course Past Medical History Past Medical History: Hyperlipidemia, Hypertension, Osteoarthritis (OA) Additional Past Medical History / Comment(s): polio AGE 22. 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 History of Any Multi-Drug Resistant Organisms: None Reported Past Surgical History: Bowel Resection, Cholecystectomy Additional Past Surgical History / Comment(s): bladder suspension surgery 3, colonoscopy about 10 years ago showed diverticulosis, cholecystectomy, bilateral cataract surgery. Past Anesthesia/Blood Transfusion Reactions: No Reported Reaction Past Psychological History: No Psychological Hx Reported Smoking Status: Never smoker Past Alcohol Use History: None Reported Past Drug Use History: None Reported - Past Family History Father Family Medical History: Respiratory Disorder Mother Family Medical History: No Reported History Additional Family Medical History / Comment(s): lives to be 101 yo, liver failure Sister(s) Family Medical History: COPD, Fibromyalgia Daughter(s) Family Medical History: No Reported History Son(s) Family Medical History: Myocardial Infarction ([place]) Medications and Allergies Home Medications Medication Instructions Recorded Confirmed Type Calcium Carbonate [Calcium] 600 mg PO DAILY 02/23/17 12/16/19 History Vit C/E/Zn/Coppr/Lutein/Zeaxan 1 cap PO DAILY 02/23/17 12/16/19 History [Preservision Areds 2 Softgel] Multivit-Min/FA/Lycopen/Lutein 1 tab PO DAILY 03/26/18 12/16/19 History [Centrum Silver Tablet] Aspirin EC [Ecotrin Low Dose] 81 mg PO DAILY 12/16/19 12/16/19 History Losartan [Cozaar] 50 mg PO DAILY 12/16/19 12/16/19 History Vitamin B Complex 1 cap PO DAILY 12/16/19 12/16/19 History Allergies Allergy/AdvReac Type Severity Reaction Status Date / Time adhesive Allergy Rash/Hives Verified 12/16/19 17:53 lisinopril Allergy Anaphylaxis Verified 12/16/19 17:53 Physical Exam Vitals: Vital Signs Temp Pulse Pulse Resp BP BP Pulse Ox 12/17/19 04:00 99.3 F 89 16 136/68 97 12/17/19 00:00 98.9 F 76 18 154/70 97 12/16/19 20:00 98.9 F 82 16 140/89 97 12/16/19 18:54 98.9 F 82 16 140/89 97 12/16/19 18:48 98.3 F 76 16 156/70 96 12/16/19 18:17 84 16 143/76 98 12/16/19 16:08 99.9 F H 77 16 144/79 98 Intake and Output 12/16/19 12/17/19 12/17/19 22:59 06:59 14:59 Other: Voiding Method Bedside Commode Bedside Commode # Voids 1 Weight 63.049 kg 65.7 kg Results 12/17/19 05:31 12/16/19 16:26 Cardiac Enzymes 12/16/19 12/16/19 Range/Units 16:26 16:26 AST 73 H (14-36) U/L Troponin I 0.566 H* (0.000-0.034) ng/mL Coagulation 12/16/19 12/17/19 12/17/19 Range/Units 16:26 00:18 05:31 PT 10.2 (9.0-12.0) sec APTT 23.3 58.8 H 48.6 H (22.0-30.0) sec Lipids 12/17/19 Range/Units 05:31 Triglycerides 86 (<150) mg/dL Cholesterol 109 (<200) mg/dL HDL Cholesterol 44 (40-60) mg/dL CBC 12/16/19 12/17/19 Range/Units 16:26 05:31 WBC 15.8 H (3.8-10.6) k/uL RBC 3.47 L (3.80-5.40) m/uL Hgb 11.8 (11.4-16.0) gm/dL Hct 36.6 (34.0-46.0) % Plt Count 276 267 (150-450) k/uL Comprehensive Metabolic Panel 12/16/19 Range/Units 16:26 Sodium 137 (137-145) mmol/L Potassium 4.1 (3.5-5.1) mmol/L Chloride 108 H (98-107) mmol/L Carbon Dioxide 21 L (22-30) mmol/L BUN 28 H (7-17) mg/dL Creatinine 0.76 (0.52-1.04) mg/dL Glucose 129 H (74-99) mg/dL Calcium 8.3 L (8.4-10.2) mg/dL AST 73 H (14-36) U/L ALT 53 H (4-34) U/L Alkaline Phosphatase 144 H (38-126) U/L Total Protein 6.6 (6.3-8.2) g/dL Albumin 3.3 L (3.5-5.0) g/dL Current Medications Generic Name Dose Route Start Last Admin Trade Name Frevivek PRN Reason Stop Dose Admin Aspirin 325 mg 12/17/19 09:00 Aspirin 325 Mg Tab PO DAILY [facility] Calcium Carbonate/Glycine 500 mg 12/17/19 09:00 Calcium Carbonate 500 Mg Chewable PO DAILY [facility] Heparin Sodium (Porcine) 0 unit 12/16/19 18:10 Heparin Sodium,Porcine 5,000 Unit/Ml 1 Ml Vial IV Q6HR PRN Low PTT Protocol Sodium Chloride 1,000 mls @ 130 mls/hr 12/16/19 16:30 12/17/19 05:57 Saline 0.9% IV 130 mls/hr .Q7H42M [facility] Administration Ceftriaxone Sodium 1 gm/ 50 mls @ 100 mls/hr 12/17/19 08:00 Sodium Chloride IVPB Q12H [facility] Heparin Sodium/Sodium Chloride 250 mls @ 7.566 mls/hr 12/16/19 18:15 12/16/19 18:51 25,000 unit/ Sodium Chloride IV 12 units/kg/hr .Q24H [facility] 7.566 mls/hr Administration Protocol 12 UNITS/KG/HR Losartan Potassium 50 mg 12/17/19 09:00 Losartan 50 Mg Tab PO DAILY [facility] Multivitamins 1 each 12/17/19 09:00 Multivitamins, Thera 1 Each Tab PO DAILY [facility] Multivitamins/Minerals 1 each 12/17/19 09:00 Vit A,C & A-Dutweh-Axgrnqwc 1 Each Tab PO DAILY [facility] Nitroglycerin 0.4 mg 12/16/19 18:10 Nitroglycerin Sl Tabs 0.4 Mg Tab SUBLINGUAL Q5M PRN Chest Pain Non-Formulary Medication 1 cap 12/17/19 09:00 Vitamin B Complex [Vitamin B Complex] PO DAILY [facility] Intake and Output 12/16/19 12/17/19 12/17/19 22:59 06:59 14:59 Other: Voiding Method Bedside Commode Bedside Commode # Voids 1 Weight 63.049 kg 65.7 kg 12/17/19 05:31 12/16/19 16:26 Assessment and Plan Plan: Nurse practitioner note has been reviewed by physician. Signing provider agrees with the documented findings, assessment, and plan of care.
[2019-12-17] MEDS: HEPARIN SOD,PORK IN 0.45% NACL 25,000 UNIT in 0.45% NACL 1 250ML.BAG IV SCH (20:22)
[2019-12-18] MEDS: NON FORMULARY DRUG (Vitamin B Complex [Vitamin B Complex] 1 EACH Capsule) PO SCH (08:25)
[2019-12-18] MEDS: FAMOTIDINE 20 MG TAB PO SCH (08:30)
[2019-12-18] MEDS: CALCIUM CARBONATE 500 MG CHEWABLE PO SCH (08:30)
[2019-12-18] MEDS: MULTIVITAMINS, THERA 1 EACH TAB PO SCH (08:31)
[2019-12-18] MEDS: LOSARTAN 50 MG TAB PO SCH (08:31)
[2019-12-18] MEDS: ASPIRIN 81 MG PO SCH (08:31)
[2019-12-18] MEDS: VIT A,C & E-LUTEIN-MINERALS 1 EACH TAB PO SCH (08:31)
[2019-12-18] MEDS: HEPARIN SOD,PORK IN 0.45% NACL 25,000 UNIT in 0.45% NACL 1 250ML.BAG IV SCH (08:35)
[2019-12-18 09:56] LABS: Basophils # (A) 0.1 k/uL (0-0.2); Basophils % (A) 1 %; Eosinophils # (A) 0.2 k/uL (0-0.7); Eosinophils % (A) 2 %; HCT 34.9 % (34.0-46.0); HGB 10.9 gm/dL (11.4-16.0); Lymphocytes # (A) 1.8 k/uL (1.0-4.8); Lymphocytes % (A) 19 %; MCH 33.5 pg (25.0-35.0); MCHC 31.1 g/dL (31.0-37.0); MCV 107.9 fL (80.0-100.0); Macrocytosis Moderate; Mean Platelet Volume 10.1; Monocytes # (A) 0.6 k/uL (0-1.0); Monocytes % (A) 6 %; Neutrophils # (A) 6.5 k/uL (1.3-7.7); Neutrophils % (A) 70 %; Platelet Count 285 k/uL (150-450); RBC 3.24 m/uL (3.80-5.40); RDW 12.7 % (11.5-15.5); WBC 9.3 k/uL (3.8-10.6)
[2019-12-18 10:14] LABS: African American GFR (CKD) >90 (>60 ml/min/1.73 sqM); Anion Gap 8 mmol/L; Blood Urea Nitrogen 16 mg/dL (7-17); Calcium 7.9 mg/dL (8.4-10.2); Carbon Dioxide 19 mmol/L (22-30); Chloride 111 mmol/L (98-107); Glucose 134 mg/dL (74-99); Non-African American GFR(CKD) 81 (>60 ml/min/1.73 sqM); Potassium 3.7 mmol/L (3.5-5.1); Sodium 138 mmol/L (137-145)
[2019-12-18] MEDS ORDERED: NITROGLYCERIN SL TABS 0.4 MG TAB SUBLINGUAL PRN (11:24)
[2019-12-18] MEDS ORDERED: SODIUM CHLORIDE 0.9% 1,000 ML in EMPTY BAG 1 BAG IV ONE (11:24)
[2019-12-18] MEDS ORDERED: ALPRAZolam 0.25 MG TAB PO PRN (11:24)
--- NOTE | 2019-12-18 12:03 | P.PN ---
Subjective Progress Note Date: 12/18/19 CHIEF COMPLAINT: NSTEMI HISTORY OF PRESENT ILLNESS: Patient examined this morning at the bedside. She denies chest pain. Denies shortness of breath. Echocardiogram reveals ejection fraction 45-50%, LV wall hypokinesis, mild aortic regurgitation, moderate mitral regurgitation, moderate to severe tricuspid regurgitation and severe pulmonary hypertension. PHYSICAL EXAM: VITAL SIGNS: Reviewed. GENERAL: Well-developed in no acute distress. HEENT: Head is normocephalic. Pupils are equal, round. Sclerae anicteric. Mucous membranes of the mouth are moist. Neck supple. No JVD or thyromegaly LUNGS: Respirations even and unlabored. Lungs essentially clear to auscultation bilaterally. HEART: Regular rate and rhythm. S1 and S2 heard. ABDOMEN: Soft. Nondistended. Nontender. EXTREMITIES: Normal range of motion. No clubbing or cyanosis. Peripheral pulses intact. No lower extremity edema NEUROLOGIC: Awake and alert. Oriented x 3. ASSESSMENT: Generalized weakness Urinary tract infection Leukocytosis Non ST elevated myocardial infarction Hypertension Hyperlipidemia PLAN: Continue IV heparin Treatment of UTI per internal medicine Patient will be scheduled for cardiac cath tomorrow with Dr. Dacia Mir statin at this time due to lipid panel. If patient is found to have CAD tomorrow, will initiate statin Nurse practitioner note has been reviewed by physician. Signing provider agrees with the documented findings, assessment, and plan of care. Objective - Vital Signs Vital signs: Vital Signs Temp 98.5 F 12/18/19 08:20 Pulse 83 12/18/19 08:20 Resp 18 12/18/19 08:20 BP 156/75 12/18/19 08:20 Pulse Ox 97 12/18/19 08:20 Intake & Output 12/17/19 12/18/19 12/18/19 18:59 06:59 18:59 Intake Total 727.5 487 240 Output Total 600 Balance 727.5 487 -360 Weight 70.6 kg Intake: Intake, IV Titration 247.5 250 Amount Heparin Sod,Pork in 0.45% 67.5 250 NaCl 25,000 unit In 0.45 % NaCl 1 250ml.bag @ 12 UNITS/KG/HR 7.566 mls/hr IV .Q24H [facility] Rx#: [id number] Sodium Chloride 0.9% 1, 130 000 ml @ 130 mls/hr IV . Q7H42M [facility] Rx#:[id number] cefTRIAXone 1 gm In 50 Sodium Chloride 0.9% 50 ml @ 100 mls/hr IVPB Q12H [facility] Rx#:[id number] Oral 480 237 240 Output: Urine 600 Other: Voiding Method Bedside Commode Bedside Commode # Voids 1 1 - Labs CBC & Chem 7: 12/18/19 08:51 12/18/19 08:51 Labs: Abnormal Lab Results - Last 24 Hours (Table) 12/17/19 12/17/19 12/18/19 Range/Units 12:08 12:08 08:51 RBC 3.24 L (3.80-5.40) m/uL Hgb 10.9 L (11.4-16.0) gm/dL MCV 107.9 H (80.0-100.0) fL APTT 41.2 H (22.0-30.0) sec Chloride (98-107) mmol/L Carbon Dioxide (22-30) mmol/L Glucose (74-99) mg/dL Calcium (8.4-10.2) mg/dL Troponin I 1.240 H* (0.000-0.034) ng/mL 12/18/19 12/18/19 Range/Units 08:51 08:51 RBC (3.80-5.40) m/uL Hgb (11.4-16.0) gm/dL MCV (80.0-100.0) fL APTT 46.6 H (22.0-30.0) sec Chloride 111 H (98-107) mmol/L Carbon Dioxide 19 L (22-30) mmol/L Glucose 134 H (74-99) mg/dL Calcium 7.9 L (8.4-10.2) mg/dL Troponin I (0.000-0.034) ng/mL Microbiology - Last 24 Hours (Table) 12/16/19 16:26 Urine Culture - Preliminary Urine,Voided Gram Neg Bacilli 12/16/19 Unknown Blood Culture - Preliminary Blood No Growth after 24 hours
--- NOTE | 2019-12-18 12:51 | P.PN ---
Subjective Progress Note Date: 12/18/19 HISTORY OF PRESENT ILLNESS This is an 84-year-old female one of Dr. Pacheco and Dr. 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 Patient states that yesterday she had sudden onset of increased weakness with significant heaviness in her arm. She denied having any chest pain or shortness of breath. No heaviness in her chest. Patient came into [facility] emergency center for evaluation. EKG with normal sinus rhythm with no acute ST changes. Temperature 99.9, heart rate 77, blood pressure 144/79. WBC 15.8, hemoglobin 11.8. Urinalysis was turbid, nitrite positive, blood moderate, leukoesterase large, squamous cell 16, bacteria many. Total bilirubin 1.1, AST 73, ALT 53, alk phos is 144. Troponin 0.566, 1.840, 1.550. Triglycerides 86, cholesterol 109, LDL 48, HDL 44. CAT scan of the brain revealed cerebral atrophy. No acute intracranial abnormality. Echocardiogram reveals EF of 45- 50% with moderate concentric left hypertrophy, LA severely dilated, mild aortic regurgitation, moderate mitral regurgitation, moderate to severe tricuspid regurgitation, severe pulmonary hypertension. Chest x-ray reveals no acute cardiopulmonary disease. Patient was admitted to the cardio stepdown unit and consult with cardiology requested. 12/17: Cardiology is following and plan for heart catheterization on Saturday. Patient is under treatment for acute UTI and urine culture showing gram-negative bacilli. Patient denies having any chest pain or shortness of breath. No lightheadedness or dizziness. She has been afebrile, heart rate 83, blood pressure 156/75, pulse ox 97% on room air. Repeat blood work reveals WBC 9.3, hemoglobin 10.9. CO2 19, creatinine 0.65. REVIEW OF SYSTEMS Constitutional: No fever, no chills, no night sweats. No weight change. No weakness, fatigue or lethargy. No daytime sleepiness. EENT: No headache. No blurred vision or double vision, no loss of vision. No loss of Hearing, no ringing in the ears, no dizziness. Lungs: No shortness of breath, cough, no sputum production. No wheezing. Cardiovascular: No chest pain, no lower extremity edema. No palpitations. No paroxysmal nocturnal dyspnea. No orthopnea. No lightheadedness or dizziness. No syncopal episodes. Abdominal: No abdominal pain. No nausea, vomiting. No diarrhea. No constipation. No bloody or tarry stools.. No loss of appetite. Genitourinary: No dysuria, increased frequency, urgency. No urinary retention. Musculoskeletal: No myalgias. No muscle weakness, no gait dysfunction, no frequent falls. No back pain. No neck pain. Integumentary: No wounds, no lesions. No rash or pruritus. No unusual b ruising. No change in hair or nails. Neurologic: No aphasia. No facial droop. No change in mentation. No head injury. No headache. No paralysis. No paresthesia. Psychiatric: No depression. No anxiety. No mood swings. Endocrine: No abnormal blood sugars. No weight change. No excessive sweating o r thirst. No cold intolerance. PHYSICAL EXAMINATION Gen: This is an 84-year-old female. Patient is sitting up in bed and appears to be comfortable and in no acute distress. HEENT: Head is atraumatic, normocephalic. Pupils equal, round. Sclerae is anicteric. NECK: Supple. No JVD. No lymphadenopathy. No thyromegaly. LUNGS: Clear to auscultation. No wheezes or rhonchi. No intercostal retractions. HEART: Regular rate and rhythm. Systolic murmur. ABDOMEN: Soft. Bowel sounds are present. No masses. No tenderness. EXTREMITIES: No pedal edema. No calf tenderness. Dorsalis pedis +2 bilaterally. NEUROLOGICAL: Patient is awake, alert and oriented x3. Cranial nerves 2 through 12 are grossly intact. ASSESSMENT AND PLAN 1. Non-ST elevated myocardial infarction presenting with weakness and heaviness in her arms. Cardiology consult appreciated. Echocardiogram as above. Continue aspirin 81 mg daily, heparin drip. Heart catheterization scheduled for Saturday. 2. Hypertension and hypertensive cardiovascular disease. Continue losartan 50 mg daily. 3. Hyperlipidemia. Continue Lipitor 80 mg. 4. AMD. Continue PreserVision 1 tablet once every day. 5. History of polio syndrome with left leg weakness. 6. History of diverticulitis and partial colectomy, stable. 7. DVT prophylaxis. Patient is on heparin drip. 8. GI prophylaxis. Continue Pepcid 20 mg PO every 12 hours. 9. Possible acute urinary tract infection. Urinalysis does show elevated squamous cells. Patient is on ceftriaxone. Urine cultures in progress with gram-negative bacilli. Discharge plan: Most likely return home. Impression and plan of care have been directed as dictated by the signing physician. Ann Dunne nurse practitioner acting as scribe for signing physician. Objective - Vital Signs Vital signs: Vital Signs Temp 98.5 F 12/18/19 08:20 Pulse 83 12/18/19 08:20 Resp 18 12/18/19 08:20 BP 156/75 12/18/19 08:20 Pulse Ox 97 12/18/19 08:20 Intake & Output 12/17/19 12/18/19 12/18/19 18:59 06:59 18:59 Intake Total 727.5 487 240 Output Total 300 Balance 727.5 487 -60 Weight 70.6 kg Intake: Intake, IV Titration 247.5 250 Amount Heparin Sod,Pork in 0.45% 67.5 250 NaCl 25,000 unit In 0.45 % NaCl 1 250ml.bag @ 12 UNITS/KG/HR 7.566 mls/hr IV .Q24H [facility] Rx#: [id number] Sodium Chloride 0.9% 1, 130 000 ml @ 130 mls/hr IV . Q7H42M [facility] Rx#:[id number] cefTRIAXone 1 gm In 50 Sodium Chloride 0.9% 50 ml @ 100 mls/hr IVPB Q12H [facility] Rx#:[id number] Oral 480 237 240 Output: Urine 300 Other: Voiding Method Bedside Commode Bedside Commode # Voids 1 1 - Labs CBC & Chem 7: 12/18/19 08:51 12/18/19 08:51 Labs: Abnormal Lab Results - Last 24 Hours (Table) 12/17/19 12/17/19 12/17/19 Range/Units 05:31 09:34 12:08 APTT 41.2 H (22.0-30.0) sec Troponin I 1.840 H* 1.550 H* (0.000-0.034) ng/mL 12/17/19 Range/Units 12:08 APTT (22.0-30.0) sec Troponin I 1.240 H* (0.000-0.034) ng/mL Microbiology - Last 24 Hours (Table) 12/16/19 16:26 Urine Culture - Preliminary Urine,Voided Gram Neg Bacilli 12/16/19 Unknown Blood Culture - Preliminary Blood No Growth after 24 hours
[2019-12-19] MEDS ORDERED: ATORVASTATIN 80 MG TAB PO ONE (05:00)
[2019-12-19] MEDS ORDERED: ASPIRIN 325 MG TAB PO ONE (05:00)
[2019-12-19 06:04] LABS: Glucose,Whole Blood 90 mg/dL (75-99)
[2019-12-19 08:26] LABS: Mean Platelet Volume 9.8; Platelet Count 289 k/uL (150-450)
[2019-12-19 08:38] LABS: African American GFR (CKD) >90 (>60 ml/min/1.73 sqM); Anion Gap 7 mmol/L; Blood Urea Nitrogen 11 mg/dL (7-17); Calcium 8.1 mg/dL (8.4-10.2); Carbon Dioxide 19 mmol/L (22-30); Chloride 113 mmol/L (98-107); Glucose 92 mg/dL (74-99); Non-African American GFR(CKD) 81 (>60 ml/min/1.73 sqM); Potassium 3.8 mmol/L (3.5-5.1); Sodium 139 mmol/L (137-145)
[2019-12-19] MEDS ORDERED: IV FLUID CONTINUATION 1,000 ML IV ONE (11:15)
--- NOTE | 2019-12-19 11:33 | P.PN ---
Subjective Progress Note Date: 12/19/19 This is an 84-year-old female one of Dr. Pacheco and Dr. 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 Patient states that yesterday she had sudden onset of increased weakness with significant heaviness in her arm. She denied having any chest pain or shortness of breath. No heaviness in her chest. Patient came into [facility] emergency center for evaluation. EKG with normal sinus rhythm with no acute ST changes. Temperature 99.9, heart rate 77, blood pressure 144/79. WBC 15.8, hemoglobin 11.8. Urinalysis was turbid, nitrite positive, blood moderate, leukoesterase large, squamous cell 16, bacteria many. Total bilirubin 1.1, AST 73, ALT 53, alk phos is 144. Troponin 0.566, 1.840, 1.550. Triglycerides 86, cholesterol 109, LDL 48, HDL 44. CAT scan of the brain revealed cerebral atrophy. No acute intracranial abnormality. Echocardiogram reveals EF of 45- 50% with moderate concentric left hypertrophy, LA severely dilated, mild aortic regurgitation, moderate mitral regurgitation, moderate to severe tricuspid regurgitation, severe pulmonary hypertension. Chest x-ray reveals no acute cardiopulmonary disease. Patient was admitted to the cardio stepdown unit and consult with cardiology requested. 12/17: Cardiology is following and plan for heart catheterization on Saturday. Patient is under treatment for acute UTI and urine culture showing gram-negative bacilli. Patient denies having any chest pain or shortness of breath. No lightheadedness or dizziness. She has been afebrile, heart rate 83, blood pressure 156/75, pulse ox 97% on room air. Repeat blood work reveals WBC 9.3, hemoglobin 10.9. CO2 19, creatinine 0.65. 12/18: Patient is resting up in bed with family at bedside. Patient denies any chest pain or difficulty breathing nausea or vomiting. Patient has been ambulatory in her room without any difficulties. Patient is scheduled for heart cath today. Patient is anxious to go home. Patient denies any dysuria or frequency. REVIEW OF SYSTEMS Constitutional: No fever, no chills, no night sweats. No weight change. No weakness, fatigue or lethargy. No daytime sleepiness. EENT: No headache. No blurred vision or double vision, no loss of vision. No loss of Hearing, no ringing in the ears, no dizziness. Lungs: No shortness of breath, cough, no sputum production. No wheezing. Cardiovascular: No chest pain, no lower extremity edema. No palpitations. No paroxysmal nocturnal dyspnea. No orthopnea. No lightheadedness or dizziness. No syncopal episodes. Abdominal: No abdominal pain. No nausea, vomiting. No diarrhea. No constipation. No bloody or tarry stools.. No loss of appetite. Genitourinary: No dysuria, increased frequency, urgency. No urinary retention. Musculoskeletal: No myalgias. No muscle weakness, no gait dysfunction, no frequent falls. No back pain. No neck pain. Integumentary: No wounds, no lesions. No rash or pruritus. No unusual bruising. No change in hair or nails. Neurologic: No aphasia. No facial droop. No change in mentation. No head injury. No headache. No paralysis. No paresthesia. Psychiatric: No depression. No anxiety. No mood swings. Endocrine: No abnormal blood sugars. No weight change. No excessive sweating or thirst. No cold intolerance. PHYSICAL EXAMINATION Gen: This is an 84-year-old female. Patient is sitting up in bed and appears to be comfortable and in no acute distress. HEENT: Head is atraumatic, normocephalic. Pupils equal, round. Sclerae is anicteric. NECK: Supple. No JVD. No lymphadenopathy. No thyromegaly. LUNGS: Clear to auscultation. No wheezes or rhonchi. No intercostal retrac tions. HEART: Regular rate and rhythm. Systolic murmur. ABDOMEN: Soft. Bowel sounds are present. No masses. No tenderness. EXTREMITIES: No pedal edema. No calf tenderness. Dorsalis pedis +2 bilate rally. NEUROLOGICAL: Patient is awake, alert and oriented x3. Cranial nerves 2 through 12 are grossly intact. ASSESSMENT AND PLAN 1. Non-ST elevated myocardial infarction presenting with weakness and heaviness in her arms. Cardiology consult appreciated. Echocardiogram as above. Continue aspirin 81 mg daily, heparin drip. Heart catheterization scheduled for today. 2. Hypertension and hypertensive cardiovascular disease. Continue losartan 50 mg daily. 3. Hyperlipidemia. Continue Lipitor 80 mg. 4. AMD. Continue PreserVision 1 tablet once every day. 5. History of polio syndrome with left leg weakness. 6. History of diverticulitis and partial colectomy, stable. 7. DVT prophylaxis. Patient is on heparin drip. 8. GI prophylaxis. Continue Pepcid 20 mg PO every 12 hours. 9. acute urinary tract infection. Urinalysis does show elevated squamous cells. Patient is on ceftriaxone. Urine cultures shows E. coli. Discharge plan: Home today or tomorrow Impression and plan of care have been directed as dictated by the signing physician. Risa Christensen nurse practitioner acting as scribe for signing physician. Objective - Vital Signs Vital signs: Vital Signs Temp 98.8 F 12/19/19 08:00 Pulse 77 12/19/19 08:00 Resp 18 12/19/19 08:00 BP 147/82 12/19/19 08:00 Pulse Ox 95 12/19/19 08:00 Intake & Output 12/18/19 12/19/19 12/19/19 18:59 06:59 18:59 Intake Total 700 Output Total 600 400 Balance 100 -400 Weight 68.6 kg Intake: Oral 700 Output: Urine 600 400 Other: Voiding Method Bedside Commode # Voids 1 1 0 - Labs CBC & Chem 7: 12/19/19 07:19 12/19/19 07:19 Labs: Abnormal Lab Results - Last 24 Hours (Table) 12/19/19 Range/Units 07:19 Chloride 113 H (98-107) mmol/L Carbon Dioxide 19 L (22-30) mmol/L Calcium 8.1 L (8.4-10.2) mg/dL Microbiology - Last 24 Hours (Table) 12/16/19 Unknown Blood Culture - Preliminary Blood No Growth after 48 hours 12/16/19 16:26 Urine Culture - Final Urine,Voided Escherichia coli
[2019-12-19] MEDS ORDERED: fentaNYL (PF) 50 MCG/ML 2 ML AMP ONE (11:40)
[2019-12-19] MEDS ORDERED: fentaNYL (PF) 50 MCG/ML 2 ML AMP IV ONE (11:40)
[2019-12-19] MEDS ORDERED: MIDAZOLAM 2 MG/2 ML VIAL IV ONE (11:40)
[2019-12-19] MEDS ORDERED: LIDOCAINE 1% INJ 10MG/ML (20 ML MDV) SQ ONE (11:45)
[2019-12-19] MEDS ORDERED: IOPAMIDOL-370 125ML BTL INJ ONE (12:04)
[2019-12-19 12:27] LABS: Glucose,Whole Blood 80 mg/dL (75-99)
--- NOTE | 2019-12-19 13:34 | CC ---
CARDIAC CATHETERIZATION REPORT INDICATION: Acute non ST-segment elevation NM. HISTORY: This is an 84-year-old lady who presented to hospital with symptoms of not feeling well, fatigue and tiredness, had elevated troponin and was advised to undergo cardiac catheterization. PROCEDURE NOTE: After obtaining informed consent, left heart catheterization and coronary angiogram were performed via the right femoral artery using standard Jeff catheters. Patient tolerated the procedure well without any obvious immediate complications. A femoral angiogram was performed and Angio-Seal was deployed for hemostasis. Patient received moderate conscious sedation. Total sedation time was 17 minutes. FINDINGS: HEMODYNAMICS: Left ventricular end-diastolic pressure is 26 mm. There is no significant gradient across the aortic valve. LEFT VENTRICULOGRAM: Not performed. ANGIOGRAPHIC DATA: LEFT MAIN CORONARY ARTERY: Left main coronary artery appears calcified, divides into left anterior descending coronary artery and circumflex coronary artery. There is a 40- 50 percent distal left main stenosis. The ostium of the circumflex coronary artery has 95% stenosis. The ostium of the LAD has an 80% stenosis. The rest of the LAD and circ are actually free of significant disease. RIGHT CORONARY ARTERY: Right coronary artery is a large dominant vessel and is free of significant stenosis. CONCLUSION: Severe ostial LAD and circumflex coronary artery stenosis with borderline distal left main stenosis. PLAN: Patient was advised bypass surgery with surgical revascularization of both the LAD and circumflex coronary arteries. I am going to ask Dr. Kim to evaluate the patient and decide on further course of action. MMANDRIYL / WUN: [id number] /
[2019-12-19] MEDS: NON FORMULARY DRUG (Vitamin B Complex [Vitamin B Complex] 1 EACH Capsule) PO SCH (16:39)
[2019-12-19 17:13] LABS: Glucose,Whole Blood 75 mg/dL (75-99)
[2019-12-19] MEDS: VIT A,C & E-LUTEIN-MINERALS 1 EACH TAB PO SCH (17:13)
[2019-12-19] MEDS: CALCIUM CARBONATE 500 MG CHEWABLE PO SCH (17:13)
[2019-12-19] MEDS: LOSARTAN 50 MG TAB PO SCH (17:13)
[2019-12-19] MEDS: ASPIRIN 81 MG PO SCH (17:13)
[2019-12-19] MEDS: MULTIVITAMINS, THERA 1 EACH TAB PO SCH (17:13)
[2019-12-19] MEDS: FAMOTIDINE 20 MG TAB PO SCH (17:13)
--- NOTE | 2019-12-19 17:39 | CT ---
EXAMINATION TYPE: CT chest wo con DATE OF EXAM: 12/19/2019 COMPARISON: Chest x-ray 3 days ago. HISTORY: Pre op cardiac surgery, evaluate aorta. CT DLP: 382.3 mGycm. Automated Exposure Control for Dose Reduction was Utilized. TECHNIQUE: CT scan of the thorax is performed without IV contrast. FINDINGS: LUNGS: There are small bilateral pleural effusions with associated compressive atelectasis. No suspic ious focal consolidation. No pneumothorax seen bilaterally. Tracheobronchial tree is patent. MEDIASTINUM: Lack of IV contrast is noted to limit evaluation for mediastinal and especially hilar ad enopathy. There are no definitive greater than 1 cm hilar or mediastinal lymph nodes. Mild cardiomega ly. Tiny pericardial effusion is seen. Moderate left atrial dilatation. Moderate to severe three-vess el coronary artery calcification. Prominent right and left pulmonary arteries, CT findings consistent with underlying pulmonary hypertension. Mild to moderate calcified plaque in the thoracic aorta. Bov ine type aortic arch which is normal variant. Slight ectasia just past great vessels measuring up to 3.1 cm coronal image 63. OTHER: Heterogeneously dense fibroglandular tissue in both breasts. Cholecystectomy clips. Excretion into kidneys likely from recent catheterization. Multilevel moderate anterior and lateral spurring in the thoracic spine. Prominent Schmorl node in the left superior L1 endplate. Metallic artifact from bilateral shoulder arthroplasty partially imaged. IMPRESSION: Some ectasia to the proximal descending thoracic aorta. No greater than 3.5 cm aneurysm. Evidence of underlying pulmonary artery hypertension. Mild Cardiomegaly with small bilateral pleural effusions.
--- NOTE | 2019-12-19 18:37 | US ---
EXAMINATION TYPE: US carotid duplex BILAT DATE OF EXAM: 12/19/2019 COMPARISON: NONE CLINICAL HISTORY: Pre-Op Cardiac Surgery. EXAM MEASUREMENTS: RIGHT: Peak Systolic Velocity (PSV) cm/sec ----- Right CCA: 68.0 ----- Right ICA: 69.7 ----- Right ECA: 91.8 ICA/CCA ratio: 1.0 RIGHT: End Diastole cm/sec ----- Right CCA: 17.4 ----- Right ICA: 19.1 ----- Right ECA: 14.1 LEFT: Peak Systolic Velocity (PSV) cm/sec ----- Left CCA: 56.6 ----- Left ICA: 68.8 ----- Left ECA: 86.7 ICA/CCA ratio: 1.2 LEFT: End Diastole cm/sec ----- Left CCA: 16.5 ----- Left ICA: 23.5 ----- Left ECA: 7.6 VERTEBRALS (direction of flow): Right Vertebral: Antegrade Left Vertebral: Antegrade Rhythm: Normal Grayscale images show mild to moderate eccentric hyperechoic plaque at right carotid bulb with simila r mild/moderate plaquing left carotid bulb. Velocity measurements and ratios remain within normal darling its in the visualized portion of both internal carotid arteries. IMPRESSION: Mild to moderate sclerotic changes bilaterally without hemodynamically significant steno sis seen in either internal carotid artery Criteria for Assigning % of Stenosis / Diameter reduction (Estimation based on the indirect measurements of the internal carotid artery velocities (ICA PSV). 1. Normal (no stenosis)=ICA PSV < 125 cm/s: ratio < 2.0: ICA EDV<40 cm/s. 2. Less than 50% stenosis=ICA PSV < 125 cm/s: ratio < 2.0: ICA EDV<40 cm/s. 3. 50 to 69% stenosis=ICA PSV of 125 to 230 cm/s: ration 2.0 ? 4.0: ICA EDV 40-100 cm/s. 4. Greater than 70% stenosis to near occlusion= ICA PSV > 230 cm/s: ratio > 4.0: ICA EDV > 100 cm/s. 5. Near occlusion= ICA PSV velocities may be low or undetectable: variable ratio and ICA EDV. 6. Total occlusion=unable to detect flow.
[2019-12-19] MEDS: MUPIROCIN 2% OINT 22 GM TUBE NASAL SCH (20:56)
[2019-12-19 20:57] LABS: Glucose,Whole Blood 118 mg/dL (75-99)
[2019-12-19] MEDS: HEPARIN SOD,PORK IN 0.45% NACL 25,000 UNIT in 0.45% NACL 1 250ML.BAG IV SCH (20:58)
[2019-12-19] MEDS: ACETAMINOPHEN TAB 325 MG TAB PO PRN (21:01)
[2019-12-20 05:53] LABS: Glucose,Whole Blood 94 mg/dL (75-99)
[2019-12-20 07:43] LABS: ALT 121 U/L (4-34); AST 84 U/L (14-36); African American GFR (CKD) >90 (>60 ml/min/1.73 sqM); Albumin 2.8 g/dL (3.5-5.0); Alkaline Phosphatase 147 U/L (38-126); Anion Gap 8 mmol/L; Blood Urea Nitrogen 11 mg/dL (7-17); Calcium 8.3 mg/dL (8.4-10.2); Carbon Dioxide 21 mmol/L (22-30); Chloride 111 mmol/L (98-107); Glucose 107 mg/dL (74-99); Magnesium 1.7 mg/dL (1.6-2.3); Non-African American GFR(CKD) 81 (>60 ml/min/1.73 sqM); Potassium 3.6 mmol/L (3.5-5.1); Sodium 140 mmol/L (137-145); Total Bilirubin 0.8 mg/dL (0.2-1.3); Total Protein 6.1 g/dL (6.3-8.2)
[2019-12-20 07:53] LABS: INR 1.1 (<1.2); Partial Thromboplastin Time 44.8 sec (22.0-30.0); Prothrombin Time 11.1 sec (9.0-12.0)
[2019-12-20 07:56] LABS: Basophils # (A) 0.1 k/uL (0-0.2); Basophils % (A) 0 %; Eosinophils # (A) 0.3 k/uL (0-0.7); Eosinophils % (A) 2 %; HCT 35.3 % (34.0-46.0); HGB 11.2 gm/dL (11.4-16.0); Lymphocytes # (A) 2.4 k/uL (1.0-4.8); Lymphocytes % (A) 18 %; MCH 34.1 pg (25.0-35.0); MCHC 31.7 g/dL (31.0-37.0); MCV 107.6 fL (80.0-100.0); Macrocytosis Moderate; Mean Platelet Volume 9.6; Monocytes # (A) 0.6 k/uL (0-1.0); Monocytes % (A) 5 %; Neutrophils # (A) 10.5 k/uL (1.3-7.7); Neutrophils % (A) 75 %; Platelet Count 375 k/uL (150-450); RBC 3.28 m/uL (3.80-5.40); RDW 13.4 % (11.5-15.5)
--- NOTE | 2019-12-20 09:34 | P.GSCN ---
History of Present Illness Consult date: 12/20/19 Reason for Consult: Multivessel coronary artery disease, left ventricular systolic function mildly impaired with an ejection fraction between 45 and 50%, moderate mitral valve regurgitation and moderate to severe tricuspid valve regurgitation per 2-D echocardiogram. Evaluation for myocardial revascularization surgery. Requesting physician: Roderick Pederson History of present illness: This is an 84-year-old female patient who is followed by Dr. Bubba Lima on an outpatient basis. 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 She presented to the emergency department here at [facility] on 12/16/2019 via EMS after she sustained a fall from standing at home while trying to get to the bathroom. EMS was called due to the fact that she could not stand with assistance from her and her son. The patient reports that she just lost her footing trying to reach the bathroom. She also reports that she has sustained several falls in the past. She denies at that time any complaints of chest pain, shortness of breath, nausea, vomiting, diaphoresis, edema, orthopnea, presyncope or syncope. On examination this morning the patient is somewhat short of breath and it is hard for her to complete a sentence due to the shortness of breath. On admission a 12-lead EKG was completed which showed normal sinus rhythm with no acute ST changes. A computed tomography scan of her brain was completed which showed cerebral atrophy and no acute intracranial abnormalities. Initial lab oratory results showed a WBC count of 15.8, hemoglobin 11.8, AST 73, ALT 53, and elevated troponins 0.566, 1.840 and 1.550. A urine culture was also sent which demonstrated Escherichia coli and she is currently receiving Rocephin for antibiotic coverage. A chest x-ray was also completed which showed no acute cardiopulmonary disease. Due to the patient's elevated troponins a consult was placed to Dr. Pederson from cardiology and a 2-D echocardiogram was completed the 2-D echocardiogram showed an overall left ventricular systolic function to be mildly impaired with an ejection fraction between 45 and 50%, mild aortic valve regurgitation, moderate mitral valve regurgitation, moderate to severe tricuspid valve regurgitation and severe pulmonary hypertension. Due to her elevated troponins she she was ruled in for an acute non-ST segment elevation myocardial infarction and she subsequently underwent a left cardiac catheterization and coronary angiogram yesterday performed by Dr. Norberto Pederson. The cardiac catheterization results demonstrated a 40-50% stenosis to her distal left main coronary artery, and ostial circumflex stenosis of 95%, and ostial left anterior descending coronary artery stenosis of 80% and her right coronary artery which was a large dominant vessel to be free of significant stenosis. Due to the findings on the cardiac catheterization films a consult was placed to Dr. Chris Kim from cardiothoracic surgery for further evaluation and treatment recommendations. Review of Systems A 14 point review of systems was completed was negative except as mentioned in the HPI. Past Medical History Past Medical History: Hyperlipidemia, Hypertension, Osteoarthritis (OA) Additional Past Medical History / Comment(s): polio AGE 22. RT HIP AND LT KNEE.ANKLE.FOOT AFFECTED(POST POLIO SYNDROME)UES A WALKER WHEN UP, BEGINNING OF MAC DEGENERATION RT EYE. History of Any Multi-Drug Resistant Organisms: None Reported Past Surgical History: Bowel Resection, Cholecystectomy, Orthopedic Surgery (Bilateral shoulder surgeries.) Additional Past Surgical History / Comment(s): bladder suspension surgery 3, colonoscopy about 10 years ago showed diverticulosis, cholecystectomy, bilateral cataract surgery. Left leg surgery status post injury. Past Anesthesia/Blood Transfusion Reactions: No Reported Reaction Past Psychological History: No Psychological Hx Reported Smoking Status: Never smoker Past Alcohol Use History: None Reported Past Drug Use History: None Reported - Past Family History Father Family Medical History: Respiratory Disorder Mother Family Medical History: No Reported History Additional Family Medical History / Comment(s): lives to be 101 yo, liver failure Sister(s) Family Medical History: COPD, Fibromyalgia Daughter(s) Family Medical History: No Reported History Son(s) Family Medical History: Myocardial Infarction ([place]) Medications and Allergies Home Medications Medication Instructions Recorded Confirmed Type Calcium Carbonate [Calcium] 600 mg PO DAILY 02/23/17 12/16/19 History Vit C/E/Zn/Coppr/Lutein/Zeaxan 1 cap PO DAILY 02/23/17 12/16/19 History [Preservision Areds 2 Softgel] Multivit-Min/FA/Lycopen/Lutein 1 tab PO DAILY 03/26/18 12/16/19 History [Centrum Silver Tablet] Aspirin EC [Ecotrin Low Dose] 81 mg PO DAILY 12/16/19 12/16/19 History Losartan [Cozaar] 50 mg PO DAILY 12/16/19 12/16/19 History Vitamin B Complex 1 cap PO DAILY 12/16/19 12/16/19 History Allergies Allergy/AdvReac Type Severity Reaction Status Date / Time adhesive Allergy Rash/Hives Verified 12/16/19 17:53 lisinopril Allergy Anaphylaxis Verified 12/16/19 17:53 Surgical - Exam Vital Signs Temp Pulse Resp BP Pulse Ox 99.9 F H 77 16 144/79 98 12/16/19 16:08 12/16/19 16:08 12/16/19 16:08 12/16/19 16:08 12/16/19 16:08 - General well developed, well nourished, no distress, no pain, chronically ill, obese - Eyes PERRL, normal ocular movement - ENT normal pinna, normal nares, normal mucosa, no hearing loss, no congestion, poor snf (Lower teeth), dentures (Upper plate) - Neck Neck is supple, no lymphadenopathy. no masses, no bruits, no venous distension - Respiratory Lung sounds are essentially clear to her bilateral upper lobes, diminished her bilateral bases with few scattered crackles. No wheezes or rhonchi. Respirations are symmetrical and nonlabored. Oxygen saturation is 94% on room air. Bedside FEV1 completed yesterday which demonstrated a FEV1 of 72% of predicted value. - Cardiovascular Regular rhythm and rate. S1 and S2 present, negative for S3, gallop or murmur. No edema present. - Abdomen Abdomen is soft, nontender and nondistended. Active bowel sounds present all 4 abdominal quadrants. No guarding or rigidity. No organomegaly appreciated. Tolerating oral intake. - Genitourinary Deferred - Rectum Deferred - Integumentary no rash, no growths, no abnormal pigmentation - Neurologic Cranial nerves II through XII intact. - Musculoskeletal Gait normal for patient, post polio with disrupted gait and walks with a walker. - Psychiatric oriented to time, oriented to person, oriented to place, speech is normal, memory intact Results - Labs 12/20/19 06:54 12/20/19 06:54 Abnormal Lab Results - Last 24 Hours (Table) 12/19/19 12/20/19 12/20/19 Range/Units 20:56 00:41 06:54 WBC (3.8-10.6) k/uL RBC (3.80-5.40) m/uL Hgb (11.4-16.0) gm/dL MCV (80.0-100.0) fL Neutrophils # (1.3-7.7) k/uL APTT 34.9 H (22.0-30.0) sec Chloride 111 H (98-107) mmol/L Carbon Dioxide 21 L (22-30) mmol/L Glucose 107 H (74-99) mg/dL POC Glucose (mg/dL) 118 H (75-99) mg/dL Calcium 8.3 L (8.4-10.2) mg/dL AST 84 H (14-36) U/L ALT 121 H (4-34) U/L Alkaline Phosphatase 147 H (38-126) U/L Total Protein 6.1 L (6.3-8.2) g/dL Albumin 2.8 L (3.5-5.0) g/dL 12/20/19 12/20/19 Range/Units 06:54 06:54 WBC 14.0 H (3.8-10.6) k/uL RBC 3.28 L (3.80-5.40) m/uL Hgb 11.2 L (11.4-16.0) gm/dL MCV 107.6 H (80.0-100.0) fL Neutrophils # 10.5 H (1.3-7.7) k/uL APTT 44.8 H (22.0-30.0) sec Chloride (98-107) mmol/L Carbon Dioxide (22-30) mmol/L Glucose (74-99) mg/dL POC Glucose (mg/dL) (75-99) mg/dL Calcium (8.4-10.2) mg/dL AST (14-36) U/L ALT (4-34) U/L Alkaline Phosphatase (38-126) U/L Total Protein (6.3-8.2) g/dL Albumin (3.5-5.0) g/dL Microbiology - Last 24 Hours (Table) 12/16/19 Unknown Blood Culture - Preliminary Blood No Growth after 72 hours Diabetes panel 12/20/19 Range/Units 06:54 Sodium 140 (137-145) mmol/L Potassium 3.6 (3.5-5.1) mmol/L Chloride 111 H (98-107) mmol/L Carbon Dioxide 21 L (22-30) mmol/L BUN 11 (7-17) mg/dL Creatinine 0.67 (0.52-1.04) mg/dL Glucose 107 H (74-99) mg/dL Calcium 8.3 L (8.4-10.2) mg/dL AST 84 H (14-36) U/L ALT 121 H (4-34) U/L Alkaline Phosphatase 147 H (38-126) U/L Total Protein 6.1 L (6.3-8.2) g/dL Albumin 2.8 L (3.5-5.0) g/dL Thyroid panel 12/20/19 Range/Units 06:54 TSH 1.380 (0.465-4.680) mIU/L Calcium panel 12/20/19 Range/Units 06:54 Calcium 8.3 L (8.4-10.2) mg/dL Albumin 2.8 L (3.5-5.0) g/dL Pituitary panel 12/20/19 Range/Units 06:54 Sodium 140 (137-145) mmol/L Potassium 3.6 (3.5-5.1) mmol/L Chloride 111 H (98-107) mmol/L Carbon Dioxide 21 L (22-30) mmol/L BUN 11 (7-17) mg/dL Creatinine 0.67 (0.52-1.04) mg/dL Glucose 107 H (74-99) mg/dL Calcium 8.3 L (8.4-10.2) mg/dL TSH 1.380 (0.465-4.680) mIU/L Adrenal panel 12/20/19 Range/Units 06:54 Sodium 140 (137-145) mmol/L Potassium 3.6 (3.5-5.1) mmol/L Chloride 111 H (98-107) mmol/L Carbon Dioxide 21 L (22-30) mmol/L BUN 11 (7-17) mg/dL Creatinine 0.67 (0.52-1.04) mg/dL Glucose 107 H (74-99) mg/dL Calcium 8.3 L (8.4-10.2) mg/dL Total Bilirubin 0.8 (0.2-1.3) mg/dL AST 84 H (14-36) U/L ALT 121 H (4-34) U/L Alkaline Phosphatase 147 H (38-126) U/L Total Protein 6.1 L (6.3-8.2) g/dL Albumin 2.8 L (3.5-5.0) g/dL - Imaging CT scan - chest: report reviewed, image reviewed Additional studies: Carotid duplex study results reviewed. 2-D echocardiogram results and cardiac catheterization films reviewed by Dr. Chris Kim. Assessment and Plan Assessment: 1. Non-ST elevated myocardial infarction this admission 2. Multivessel coronary artery disease, status post left heart catheterization with coronary angiogram 3. Mildly impaired left ventricular systolic function with an ejection fraction of 45-50% per 2-D echocardiogram 4. Moderate mitral valve regurgitation 5. Moderate to severe tricuspid valve regurgitation 6. Severe pulmonary hypertension 7. Escherichia coli urinary tract infection, currently treated 8. Hypertension 9. Hyperlipidemia 10. History of polio at age 22, with post polio syndrome with left leg weakness 11. History of diverticulitis, status post partial colectomy 12. Lifetime nonsmoker Plan: The patient was seen and examined at her bedside on the cardiac stepdown unit. Her chart and diagnostics reviewed. The usual preoperative course of myocardial revascularization surgery was discussed in detail with the patient, all questions were answered to the best viability. Her case was discussed in detail with Dr. Chris Kim from cardiothoracic surgery. Preoperative testing was initiated as well as preoperative teaching. A 5 m walk test was completed with the patient, time 1:22.45 seconds, time 2: 18.08 seconds, time 3:25.15 seconds. A bedside FEV1 was also completed which showed a 72% of predicted value and an FVC of 64% of predicted value. STS risk score was calculated for isolated CABG which showed a 10% risk and with mitral valve CABG the risk or was 16%. At this time the patient will be considered a very high risk for surgery due to frailty and other comorbidities, we will await the transesophageal echocardiogram results and make further decision regarding surgery at that time. Continue to optimize medical management with aspirin, statin, ARB and beta annie. Heparin drip management per cardiology recommendations. Antibiotic management per primary care service. More recommendations to follow based on patient's clinical course and preoperative testing once collected. Thank you Dr. Pederson for this consult and we look forward to following with you in the care of this patient. Time with Patient: Greater than 30
[2019-12-20] MEDS: VIT A,C & E-LUTEIN-MINERALS 1 EACH TAB PO SCH (09:36)
[2019-12-20] MEDS: LOSARTAN 50 MG TAB PO SCH (09:36)
[2019-12-20] MEDS: FAMOTIDINE 20 MG TAB PO SCH (09:36)
[2019-12-20] MEDS: ASPIRIN 81 MG PO SCH (09:36)
[2019-12-20] MEDS: CALCIUM CARBONATE 500 MG CHEWABLE PO SCH (09:36)
[2019-12-20] MEDS: MUPIROCIN 2% OINT 22 GM TUBE NASAL SCH ×2 (09:36→22:39)
[2019-12-20] MEDS: MULTIVITAMINS, THERA 1 EACH TAB PO SCH (09:36)
[2019-12-20] MEDS: NON FORMULARY DRUG (Vitamin B Complex [Vitamin B Complex] 1 EACH Capsule) PO SCH (09:37)
[2019-12-20 11:08] LABS: Hepatitis A Antibody IgM Non-Reactive (Non-Reactive); Hepatitis B Core IgM Non-Reactive (Non-Reactive); Hepatitis B Surface Antigen Non-Reactive (Non-Reactive); Hepatitis C IgG Antibody Non-Reactive (Non-Reactive)
--- NOTE | 2019-12-20 11:51 | P.PN ---
Subjective Progress Note Date: 12/20/19 This is an 84-year-old female one of Dr. Pacheco and Dr. 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 Patient states that yesterday she had sudden onset of increased weakness with significant heaviness in her arm. She denied having any chest pain or shortness of breath. No heaviness in her chest. Patient came into [facility] emergency center for evaluation. EKG with normal sinus rhythm with no acute ST changes. Temperature 99.9, heart rate 77, blood pressure 144/79. WBC 15.8, hemoglobin 11.8. Urinalysis was turbid, nitrite positive, blood moderate, leukoesterase large, squamous cell 16, bacteria many. Total bilirubin 1.1, AST 73, ALT 53, alk phos is 144. Troponin 0.566, 1.840, 1.550. Triglycerides 86, cholesterol 109, LDL 48, HDL 44. CAT scan of the brain revealed cerebral atrophy. No acute intracranial abnormality. Echocardiogram reveals EF of 45- 50% with moderate concentric left hypertrophy, LA severely dilated, mild aortic regurgitation, moderate mitral regurgitation, moderate to severe tricuspid regurgitation, severe pulmonary hypertension. Chest x-ray reveals no acute cardiopulmonary disease. Patient was admitted to the cardio stepdown unit and consult with cardiology requested. 12/17: Cardiology is following and plan for heart catheterization on Saturday. Patient is under treatment for acute UTI and urine culture showing gram-negative bacilli. Patient denies having any chest pain or shortness of breath. No lightheadedness or dizziness. She has been afebrile, heart rate 83, blood pressure 156/75, pulse ox 97% on room air. Repeat blood work reveals WBC 9.3, hemoglobin 10.9. CO2 19, creatinine 0.65. 12/18: Patient is resting up in bed with family at bedside. Patient denies any chest pain or difficulty breathing nausea or vomiting. Patient has been ambulatory in her room without any difficulties. Patient is scheduled for heart cath today. Patient is anxious to go home. Patient denies any dysuria or frequency. 12/19: Patient was found to have multivessel coronary artery disease with moderate mitral valve regurgitation and [id number] tricuspid valve regurgitation and seen and evaluated for myocardial revascularization surgery. Patient is considered to be very high risk for surgery due to friability and ot her comorbidities trans-esophageal echocardiogram will be obtained to make further consideration for surgery. Patient is on sitting up in chair in no acute distress. Patient denies any chest pain at this time she is able to ambulate to the bathroom without any difficulties. Patient has been afebrile. Pulse rate 98, respirations 18, blood pressure 1 4674 and pulse ox 94% on room air. Hemoglobin 11.2, potassium 3.6, BUN 11, creatinine 0.67 REVIEW OF SYSTEMS Constitutional: No fever, no chills, no night sweats. No weight change. No weakness, fatigue or lethargy. No daytime sleepiness. EENT: No headache. No blurred vision or double vision, no loss of vision. No loss of Hearing, no ringing in the ears, no dizziness. Lungs: No shortness of breath, cough, no sputum production. No wheezing. Cardiovascular: No chest pain, no lower extremity edema. No palpitations. No paroxysmal nocturnal dyspnea. No orthopnea. No lightheadedness or dizziness. No syncopal episodes. Abdominal: No abdominal pain. No nausea, vomiting. No diarrhea. No constipation. No bloody or tarry stools.. No loss of appetite. Genitourinary: No dysuria, increased frequency, urgency. No urinary retention. Musculoskeletal: No myalgias. No muscle weakness, no gait dysfunction, no frequent falls. No back pain. No neck pain. Integumentary: No wounds, no lesions. No rash or pruritus. No unusual bruising. No change in hair or nails. Neurologic: No aphasia. No facial droop. No change in mentation. No head injury. No headache. No paralysis. No paresthesia. Psychiatric: No depression. No anxiety. No mood swings. Endocrine: No abnormal blood sugars. No weight change. No excessive sweating or thirst. No cold intolerance. PHYSICAL EXAMINATION Gen: This is an 84-year-old female. Patient is sitting up in bed and appears to be comfortable and in no acute distress. HEENT: Head is atraumatic, normocephalic. Pupils equal, round. Sclerae is anicteric. NECK: Supple. No JVD. No lymphadenopathy. No thyromegaly. LUNGS: Clear to auscultation. No wheezes or rhonchi. No intercostal retractions. HEART: Regular rate and rhythm. Systolic murmur. ABDOMEN: Soft. Bowel sounds are present. No masses. No tenderness. EXTREMITIES: No pedal edema. No calf tenderness. Dorsalis pedis +2 bilaterally. NEUROLOGICAL: Patient is awake, alert and oriented x3. Cranial nerves 2 through 12 are grossly intact. ASSESSMENT AND PLAN 1. Non-ST elevated myocardial infarction presenting with weakness and heaviness in her arms. Cardiology consult appreciated. Echocardiogram as above. Continue aspirin 81 mg daily, heparin drip. Heart catheterization showed multivessel disease with recommendation for myocardial revascularization surgery. Preop testing initiated awaiting PATRIZIA for final decision on surgery. 2. Hypertension and hypertensive cardiovascular disease. Continue losartan 50 mg daily. 3. Hyperlipidemia. Continue Lipitor 80 mg. 4. AMD. Continue PreserVision 1 tablet once every day. 5. History of polio syndrome with left leg weakness. 6. History of diverticulitis and partial colectomy, stable. 7. DVT prophylaxis. Patient is on heparin drip. 8. GI prophylaxis. Continue Pepcid 20 mg PO every 12 hours. 9. acute urinary tract infection. Urinalysis does show elevated squamous cells. Patient is on ceftriaxone. Urine cultures shows E. coli. Discharge plan: Awaiting consideration for revascularization surgery Impression and plan of care have been directed as dictated by the signing physician. Risa Christensen nurse practitioner acting as scribe for signing physician. Objective - Vital Signs Vital signs: Vital Signs Temp 98.3 F 12/20/19 08:00 Pulse 98 12/20/19 08:00 Resp 18 12/20/19 08:00 BP 147/74 12/20/19 08:00 Pulse Ox 94 L 12/20/19 08:00 Intake & Output 12/19/19 12/20/19 12/20/19 18:59 06:59 18:59 Intake Total 445 33.29 240 Balance 445 33.29 240 Weight 69.7 kg Intake: IV 75 Intake, IV Titration 250 33.29 Amount Heparin Sod,Pork in 0.45% 250 33.29 NaCl 25,000 unit In 0.45 % NaCl 1 250ml.bag @ 12 UNITS/KG/HR 7.566 mls/hr IV .Q24H [facility] Rx#: [id number] Oral 120 240 Other: Voiding Method Bedside Commode Bedside Commode # Voids 1 1 # Bowel Movements 1 - Labs CBC & Chem 7: 12/20/19 06:54 12/20/19 06:54 Labs: Abnormal Lab Results - Last 24 Hours (Table) 12/19/19 12/20/19 12/20/19 Range/Units 20:56 00:41 06:54 WBC (3.8-10.6) k/uL RBC (3.80-5.40) m/uL Hgb (11.4-16.0) gm/dL MCV (80.0-100.0) fL Neutrophils # (1.3-7.7) k/uL APTT 34.9 H (22.0-30.0) sec Chloride 111 H (98-107) mmol/L Carbon Dioxide 21 L (22-30) mmol/L Glucose 107 H (74-99) mg/dL POC Glucose (mg/dL) 118 H (75-99) mg/dL Calcium 8.3 L (8.4-10.2) mg/dL AST 84 H (14-36) U/L ALT 121 H (4-34) U/L Alkaline Phosphatase 147 H (38-126) U/L Total Protein 6.1 L (6.3-8.2) g/dL Albumin 2.8 L (3.5-5.0) g/dL 12/20/19 12/20/19 Range/Units 06:54 06:54 WBC 14.0 H (3.8-10.6) k/uL RBC 3.28 L (3.80-5.40) m/uL Hgb 11.2 L (11.4-16.0) gm/dL MCV 107.6 H (80.0-100.0) fL Neutrophils # 10.5 H (1.3-7.7) k/uL APTT 44.8 H (22.0-30.0) sec Chloride (98-107) mmol/L Carbon Dioxide (22-30) mmol/L Glucose (74-99) mg/dL POC Glucose (mg/dL) (75-99) mg/dL Calcium (8.4-10.2) mg/dL AST (14-36) U/L ALT (4-34) U/L Alkaline Phosphatase (38-126) U/L Total Protein (6.3-8.2) g/dL Albumin (3.5-5.0) g/dL Microbiology - Last 24 Hours (Table) 12/19/19 21:26 Nasal Screen MRSA/MSSA - Preliminary Nasal Swab 12/16/19 Unknown Blood Culture - Preliminary Blood No Growth after 72 hours
[2019-12-20 12:07] LABS: Glucose,Whole Blood 148 mg/dL (75-99)
--- NOTE | 2019-12-20 12:25 | P.PN ---
Subjective This is a pleasant 84-year-old female who underwent cardiac catheterization by Dr. King yesterday revealing 40-50% stenosis of the distal left main, 95% stenosis of the ostial circumflex, 80% stenosis of the ostial LAD and RCA free of significant disease. She has been seen and evaluated by cardiothoracic surgery and they're requesting a PATRIZIA. She is seen and examined resting comfortably sitting up in the chair in no acute distress. She denies chest pain, dizziness or palpitations. She states she feels mildly short of breath at times. She is coughing and bringing up some phlegm. Right groin access site is clean, dry and intact with no evidence of hematoma, bleeding, bruising or ecchymosis. Blood pressure 147/74 heart rate 98 afebrile maintaining oxygen saturation on room air. Laboratory data reviewed, WBC 14, hemoglobin 11.2, platelets 375, sodium 140, potassium 3.6, creatinine 0.67, magnesium 1.7 and TSH 1.38. She is currently maintained on aspirin 81 mg daily and losartan 50 mg daily. GENERAL: Well-appearing, well-nourished and in no acute distress. NECK: Supple without JVD or thyromegaly. LUNGS: Breath sounds clear to auscultation bilaterally. Respiration equal and unlabored. No wheezes, rales or rhonchi. HEART: Regular rate and rhythm with systolic ejection murmur at the left sternal border, no rubs or gallops. S1 and S2 heard. EXTREMITIES: Normal range of motion, no edema. No clubbing or cyanosis. Pe ripheral pulses intact. Right femoral access site clean, dry and intact with no evidence of hematoma, bleeding, bruising or ecchymosis. Distal pulses intact. ASSESSMENT Non-ST elevated myocardial infarction Multivessel coronary artery disease Valvular heart disease Pulmonary hypertension Hypertension Dyslipidemia Urinary tract infection Leukocytosis PLAN Initiate atorvastatin 80 mg daily and Lopressor 25 mg daily. We will increase to twice a day if she tolerates this medication. Nothing by mouth after midnight tonight for possible PATRIZIA in the morning with Dr. Pederson. Further recommendations to follow based upon clinical course. Nurse Practitioner note has been reviewed, I agree with a documented findings and plan of care. Patient was seen and examined. Objective - Vital Signs Vital signs: Vital Signs Temp 98.3 F 12/20/19 08:00 Pulse 98 12/20/19 08:00 Resp 18 12/20/19 08:00 BP 147/74 12/20/19 08:00 Pulse Ox 94 L 12/20/19 08:00 Intake & Output 12/19/19 12/20/19 12/20/19 18:59 06:59 18:59 Intake Total 445 33.29 290 Balance 445 33.29 290 Weight 69.7 kg Intake: IV 75 Intake, IV Titration 250 33.29 50 Amount Heparin Sod,Pork in 0.45% 250 33.29 NaCl 25,000 unit In 0.45 % NaCl 1 250ml.bag @ 12 UNITS/KG/HR 7.566 mls/hr IV .Q24H [facility] Rx#: [id number] 1 gm In 50 Sodium Chloride 0.9% 50 ml @ 100 mls/hr IVPB Q12H [facility] Rx#:[id number] Oral 120 240 Other: Voiding Method Bedside Commode Bedside Commode # Voids 1 1 1 # Bowel Movements 1 - Labs CBC & Chem 7: 12/20/19 06:54 12/20/19 06:54 Labs: Abnormal Lab Results - Last 24 Hours (Table) 12/19/19 12/20/19 12/20/19 Range/Units 20:56 00:41 06:54 WBC (3.8-10.6) k/uL RBC (3.80-5.40) m/uL Hgb (11.4-16.0) gm/dL MCV (80.0-100.0) fL Neutrophils # (1.3-7.7) k/uL APTT 34.9 H (22.0-30.0) sec Chloride 111 H (98-107) mmol/L Carbon Dioxide 21 L (22-30) mmol/L Glucose 107 H (74-99) mg/dL POC Glucose (mg/dL) 118 H (75-99) mg/dL Calcium 8.3 L (8.4-10.2) mg/dL AST 84 H (14-36) U/L ALT 121 H (4-34) U/L Alkaline Phosphatase 147 H (38-126) U/L Total Protein 6.1 L (6.3-8.2) g/dL Albumin 2.8 L (3.5-5.0) g/dL 09/12/20/19 12/20/19 Range/Units 06:54 06:54 11:43 WBC 14.0 H (3.8-10.6) k/uL RBC 3.28 L (3.80-5.40) m/uL Hgb 11.2 L (11.4-16.0) gm/dL MCV 107.6 H (80.0-100.0) fL Neutrophils # 10.5 H (1.3-7.7) k/uL APTT 44.8 H (22.0-30.0) sec Chloride (98-107) mmol/L Carbon Dioxide (22-30) mmol/L Glucose (74-99) mg/dL POC Glucose (mg/dL) 148 H (75-99) mg/dL Calcium (8.4-10.2) mg/dL AST (14-36) U/L ALT (4-34) U/L Alkaline Phosphatase (38-126) U/L Total Protein (6.3-8.2) g/dL Albumin (3.5-5.0) g/dL Microbiology - Last 24 Hours (Table) 12/19/19 21:26 Nasal Screen MRSA/MSSA - Preliminary Nasal Swab 12/16/19 Unknown Blood Culture - Preliminary Blood No Growth after 72 hours
[2019-12-20] MEDS: ACETAMINOPHEN TAB 325 MG TAB PO PRN ×2 (13:20→23:58)
[2019-12-20 13:21] LABS: Hemoglobin A1C 5.1 % (4.0-6.0)
[2019-12-20] MEDS: METOPROLOL TARTRATE 25 MG TAB PO SCH (13:22)
[2019-12-20 16:56] LABS: Glucose,Whole Blood 143 mg/dL (75-99)
[2019-12-20] MEDS: ATORVASTATIN 80 MG TAB PO SCH (20:04)
[2019-12-20] MEDS: HEPARIN SOD,PORK IN 0.45% NACL 25,000 UNIT in 0.45% NACL 1 250ML.BAG IV SCH (20:07)
[2019-12-20 20:08] LABS: Glucose,Whole Blood 141 mg/dL (75-99)
[2019-12-20] MEDS: ALPRAZolam 0.5 MG TAB PO PRN (23:58)
[2019-12-21 06:12] LABS: Glucose,Whole Blood 89 mg/dL (75-99)
[2019-12-21] MEDS ORDERED: ALBUTEROL NEBULIZED 2.5 MG/3 ML INHALATION PRN (07:35)
[2019-12-21] MEDS ORDERED: ALBUTEROL NEBULIZED 2.5 MG/3 ML INHALATION STA (07:35)
[2019-12-21] MEDS ORDERED: fentaNYL (PF) 50 MCG/ML 2 ML AMP ONE (07:39)
[2019-12-21] MEDS ORDERED: SODIUM CHLORIDE 0.9% 500 ML 500 ML IV ONE (08:00)
[2019-12-21] MEDS ORDERED: fentaNYL (PF) 50 MCG/ML 2 ML AMP IV ONE (08:15)
[2019-12-21] MEDS ORDERED: MIDAZOLAM 2 MG/2 ML VIAL IV ONE (08:15)
[2019-12-21] MEDS ORDERED: BENZOCAINE SPRAY 1 CAN MUCOUS MEM ONE (08:15)
--- NOTE | 2019-12-21 09:25 | ECHOT ---
TRANSESOPHAGEAL ECHOCARDIOGRAM INDICATION: Mitral regurgitation. After obtaining informed consent, transesophageal echocardiogram was performed in left lateral position using an Omni plane probe. Local and IV sedation were obtained by giving 2 mg of Versed and 25 mcg of fentanyl. Patient tolerated the procedure well without any obvious immediate complications. A 2D color Doppler evaluation was performed. FINDINGS: 1. Mitral valve appears anatomically normal. There is mild to moderate central mitral regurgitation noted. 2. Aortic valve is a 3-leaflet valve. There is no evidence of aortic stenosis. There is mild aortic regurgitation noted. Tricuspid valve shows mild tricuspid regurgitation. 3. interatrial septum. There is no evidence of [id number] shunt by color-flow Doppler or tdypc-ek-uvpu shunt by agitated saline contrast study. 4. Left ventricle has normal size and systolic function with an ejection fraction of 55%. 5. Left atrium appears mildly enlarged, right atrium and right ventricle seen within normal limits. Aorta shows mild atherosclerotic changes. CONCLUSION: 1. Mild to moderate central mitral regurgitation. 2. Normal LV systolic function. MMODL / IJN: [id number] /
[2019-12-21] MEDS: FAMOTIDINE 20 MG TAB PO SCH (09:31)
[2019-12-21] MEDS: LOSARTAN 50 MG TAB PO SCH (09:31)
[2019-12-21] MEDS: METOPROLOL TARTRATE 25 MG TAB PO SCH ×2 (09:31→20:48)
[2019-12-21] MEDS: VIT A,C & E-LUTEIN-MINERALS 1 EACH TAB PO SCH (09:31)
[2019-12-21] MEDS: MULTIVITAMINS, THERA 1 EACH TAB PO SCH (09:31)
[2019-12-21] MEDS: CALCIUM CARBONATE 500 MG CHEWABLE PO SCH (09:31)
[2019-12-21] MEDS: ASPIRIN 81 MG PO SCH (09:31)
[2019-12-21] MEDS: NON FORMULARY DRUG (Vitamin B Complex [Vitamin B Complex] 1 EACH Capsule) PO SCH (09:32)
[2019-12-21] MEDS: MUPIROCIN 2% OINT 22 GM TUBE NASAL SCH (09:34)
--- NOTE | 2019-12-21 09:37 | P.PN ---
Subjective Progress Note Date: 12/21/19 Principal diagnosis: Multivessel coronary artery disease, non-STEMI this admission, mildly impaired left ventricular systolic function with EF 45-50%, moderate mitral valve regurgi tation and moderate to severe tricuspid valve regurgitation with severe pulmonary hypertension on 2-D echocardiogram, E. coli urinary tract infection this admission, recent fall at home. 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 The patient was seen and examined this more the bedside with family present. She was sitting up in bed and appears short of breath. She denied any chest pain. She is currently nothing by mouth for transesophageal echocardiogram today. All questions were answered. Objective - Vital Signs Vital signs: Vital Signs Temp 98.0 F 12/21/19 05:08 Pulse 82 12/21/19 08:25 Resp 20 12/21/19 08:25 BP 150/74 12/21/19 08:25 Pulse Ox 92 L 12/21/19 08:25 Intake & Output 12/20/19 12/21/19 12/21/19 18:59 06:59 18:59 Intake Total 635 177.319 204.973 Output Total 320 Balance 635 -142.681 204.973 Weight 71.6 kg Intake: IV 100 Intake, IV Titration 50 177.319 104.973 Amount Heparin Sod,Pork in 0.45% 177.319 104.973 NaCl 25,000 unit In 0.45 % NaCl 1 250ml.bag @ 12 UNITS/KG/HR 7.566 mls/hr IV .Q24H [facility] Rx#: [id number] cefTRIAXone 1 gm In 50 Sodium Chloride 0.9% 50 ml @ 100 mls/hr IVPB Q12H [facility] Rx#:[id number] Oral 585 Output: Urine 320 Other: Voiding Method Bedside Commode # Voids 0 1 - Constitutional General appearance: Present: cooperative, mild distress, obese - Respiratory Details: Lungs sounds diminished bilaterally with expiratory wheezes present. Respirations even, slightly labored. Currently on 4 L nasal cannula with oxygen saturation 95%. - Cardiovascular Details: S1, S2 present. Regular rate and rhythm, sinus rhythm on telemetry. Palpable peripheral pulses bilaterally. No edema present. No calf pain or tenderness noted. - Gastrointestinal Gastrointestinal Comment(s): Abdomen soft, nontender, nondistended. Active bowel sounds present 4 quadrants. Currently nothing by mouth for PATRIZIA - Genitourinary Genitourinary Comment(s): Continues to void - Integumentary Integumentary Comment(s): Skin is warm and dry with evidence of good perfusion - Neurologic Neurologic: Present: CNII-XII intact - Musculoskeletal Musculoskeletal Comment(s): Ambulates with walker, left lower extremity weakness secondary to post polio syndrome Musculoskeletal: Present: left sided weakness - Psychiatric Psychiatric: Present: A&O x's 3, appropriate affect, intact judgment & insight - Allied health notes Allied health notes reviewed: nursing - Labs CBC & Chem 7: 12/20/19 06:54 12/20/19 06:54 Labs: Abnormal Lab Results - Last 24 Hours (Table) 12/20/19 12/20/19 12/20/19 Range/Units 11:43 16:41 20:07 POC Glucose (mg/dL) 148 H 143 H 141 H (75-99) mg/dL Microbiology - Last 24 Hours (Table) 12/16/19 Unknown Blood Culture - Preliminary Blood No Growth after 96 hours 12/19/19 21:26 Nasal Screen MRSA/MSSA - Preliminary Nasal Swab - Imaging and Cardiology Chest x-ray: report reviewed, image reviewed CT scan - chest: report reviewed, image reviewed Heart catheterization films reviewed with Dr. Archibald Assessment and Plan Assessment: 1. Multivessel coronary artery disease, non-STEMI this admission 2. Mildly impaired left ventricular systolic function with EF 45-50%, moderate mitral valve regurgitation and moderate to severe tricuspid valve regurgitation with severe pulmonary hypertension on 2-D echocardiogram 3. E. coli urinary tract infection this admission 4. Recent fall at home with history of multiple falls at home 5. 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 Hypertension 7. Hyperlipidemia 8. Macular degeneration 9. Diverticulitis status post partial colectomy 10. Lifelong nonsmoker. Plan: 1. Continue aspirin, statin, ARB, beta annie therapy 2. Wean O2 as tolerated. Incentive spirometry ordered and should be encouraged 3. Will review transesophageal echocardiogram was completed. Dr. Archibald will discuss CABG +/- valve surgery with patient once PATRIZIA is completed 4. The patient would be considered very high risk for surgery, this was discussed with the patient and her family 5. Increase activity, ambulate as tolerated. The patient would likely need rehab after surgery 6. Continue antibiotics per infectious disease 7. More recommendations to follow Time with Patient: Greater than 30
--- NOTE | 2019-12-21 11:41 | P.PN ---
Subjective Progress Note Date: 12/21/19 HISTORY OF PRESENT ILLNESS This is an 84-year-old female one of Dr. Pacheco and Dr. 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 Patient states that yesterday she had sudden onset of increased weakness with significant heaviness in her arm. She denied having any chest pain or shortness of breath. No heaviness in her chest. Patient came into [facility] emergency center for evaluation. EKG with normal sinus rhythm with no acute ST changes. Temperature 99.9, heart rate 77, blood pressure 144/79. WBC 15.8, hemoglobin 11.8. Urinalysis was turbid, nitrite positive, blood moderate, leukoesterase large, squamous cell 16, bacteria many. Total bilirubin 1.1, AST 73, ALT 53, alk phos is 144. Troponin 0.566, 1.840, 1.550. Triglycerides 86, cholesterol 109, LDL 48, HDL 44. CAT scan of the brain revealed cerebral atrophy. No acute intracranial abnormality. Echocardiogram reveals EF of 45- 50% with moderate concentric left hypertrophy, LA severely dilated, mild aortic regurgitation, moderate mitral regurgitation, moderate to severe tricuspid regurgitation, severe pulmonary hypertension. Chest x-ray reveals no acute cardiopulmonary disease. Patient was admitted to the cardio stepdown unit and consult with cardiology requested. 12/17: Cardiology is following and plan for heart catheterization on Saturday. Patient is under treatment for acute UTI and urine culture showing gram-negative bacilli. Patient denies having any chest pain or shortness of breath. No lightheadedness or dizziness. She has been afebrile, heart rate 83, blood pressure 156/75, pulse ox 97% on room air. Repeat blood work reveals WBC 9.3, hemoglobin 10.9. CO2 19, creatinine 0.65. 12/18: Patient is resting up in bed with family at bedside. Patient denies any chest pain or difficulty breathing nausea or vomiting. Patient has been ambulatory in her room without any difficulties. Patient is scheduled for heart cath today. Patient is anxious to go home. Patient denies any dysuria or frequency. 12/19: Patient was found to have multivessel coronary artery disease with moderate mitral valve regurgitation and [id number] tricuspid valve regurgitation and seen and evaluated for myocardial revascularization surgery. Patient is considered to be very high risk for surgery due to friability and other comorbidities trans-esophageal echocardiogram will be obtained to make further consideration for surgery. Patient is on sitting up in chair in no acute distress. Patient denies any chest pain at this time she is able to ambulate to the bathroom without any difficulties. Patient has been afebrile. Pulse rate 98, respirations 18, blood pressure 1 4674 and pulse ox 94% on room air. Hemoglobin 11.2, potassium 3.6, BUN 11, creatinine 0.67 12/20: Patient underwent PATRIZIA today which revealed mild to moderate central mitral regurgitation. Normal LV systolic function. Patient has been seen by cardiothoracic surgery with plan for CABG tentatively scheduled for Saturday. Patient has been afebrile, heart rate 80, blood pressure 144/87, pulse ox 90% on 4 L nasal cannula. Repeat blood work ordered for tomorrow. REVIEW OF SYSTEMS Constitutional: No fever, no chills, no night sweats. No weight change. No weakness, fatigue or lethargy. No daytime sleepiness. EENT: No headache. No blurred vision or double vision, no loss of vision. No loss of Hearing, no ringing in the ears, no dizziness. Lungs: No shortness of breath, cough, no sputum production. No wheezing. Cardiovascular: No chest pain, no lower extremity edema. No palpitations. No paroxysmal nocturnal dyspnea. No orthopnea. No lightheadedness or dizziness. No syncopal episodes. Abdominal: No abdominal pain. No nausea, vomiting. No diarrhea. No constipation. No bloody or tarry stools.. No loss of appetite. Genitourinary: No dysuria, increased frequency, urgency. No urinary retention. Musculoskeletal: No myalgias. No muscle weakness, no gait dysfunction, no frequent falls. No back pain. No neck pain. Integumentary: No wounds, no lesions. No rash or pruritus. No unusual bruising. No change in hair or nails. Neurologic: No aphasia. No facial droop. No change in mentation. No head injury. No headache. No paralysis. No paresthesia. Psychiatric: No depression. No anxiety. No mood swings. Endocrine: No abnormal blood sugars. No weight change. No excessive sweating or thirst. No cold intolerance. PHYSICAL EXAMINATION Gen: This is an 84-year-old female. Patient is sitting up in bed and appears to be comfortable and in no acute distress. HEENT: Head is atraumatic, normocephalic. Pupils equal, round. Sclerae is anicteric. NECK: Supple. No JVD. No lymphadenopathy. No thyromegaly. LUNGS: Clear to auscultation. No wheezes or rhonchi. No intercostal retractions. HEART: Regular rate and rhythm. Systolic murmur. ABDOMEN: Soft. Bowel sounds are present. No masses. No tenderness. EXTREMITIES: No pedal edema. No calf tenderness. Dorsalis pedis +2 bilaterally. NEUROLOGICAL: Patient is awake, alert and oriented x3. Cranial nerves 2 through 12 are grossly intact. ASSESSMENT AND PLAN 1. Non-ST elevated myocardial infarction with multivessel coronary artery disease. Cardiology consult appreciated. Echocardiogram as above. Continue aspirin 81 mg daily, atorvastatin, Lopressor. Patient is tentatively scheduled for CABG on Saturday. PATRIZIA and heart catheterization report as above. 2. Hypertension and hypertensive cardiovascular disease. Continue losartan 50 mg daily. 3. Hyperlipidemia. Continue Lipitor 80 mg. 4. AMD. Continue PreserVision 1 tablet once every day. 5. History of polio syndrome with left leg weakness. 6. History of diverticulitis and partial colectomy, stable. 7. DVT prophylaxis. 8. GI prophylaxis. Continue Pepcid 20 mg PO every 12 hours. 9. E. coli acute urinary tract infection. Patient is on ceftriaxone. Discharge plan: Most likely patient will require subacute rehab at discharge. Impression and plan of care have been directed as dictated by the signing physician. Ann Dunne nurse practitioner acting as scribe for signing physician. Objective - Vital Signs Vital signs: Vital Signs Temp 98.0 F 12/21/19 05:08 Pulse 82 12/21/19 08:25 Resp 20 12/21/19 08:25 BP 150/74 12/21/19 08:25 Pulse Ox 92 L 12/21/19 08:25 Intake & Output 12/20/19 12/21/19 12/21/19 18:59 06:59 18:59 Intake Total 635 177.319 204.973 Output Total 320 Balance 635 -142.681 204.973 Weight 71.6 kg Intake: IV 100 Intake, IV Titration 50 177.319 104.973 Amount Heparin Sod,Pork in 0.45% 177.319 104.973 NaCl 25,000 unit In 0.45 % NaCl 1 250ml.bag @ 12 UNITS/KG/HR 7.566 mls/hr IV .Q24H [facility] Rx#: [id number] cefTRIAXone 1 gm In 50 Sodium Chloride 0.9% 50 ml @ 100 mls/hr IVPB Q12H [facility] Rx#:[id number] Oral 585 Output: Urine 320 Other: Voiding Method Bedside Commode # Voids 0 1 - Labs CBC & Chem 7: 12/20/19 06:54 12/20/19 06:54 Labs: Abnormal Lab Results - Last 24 Hours (Table) 12/20/19 12/20/19 12/20/19 Range/Units 11:43 16:41 20:07 POC Glucose (mg/dL) 148 H 143 H 141 H (75-99) mg/dL Microbiology - Last 24 Hours (Table) 12/16/19 Unknown Blood Culture - Preliminary Blood No Growth after 96 hours 12/19/19 21:26 Nasal Screen MRSA/MSSA - Preliminary Nasal Swab
[2019-12-21 11:51] LABS: Glucose,Whole Blood 159 mg/dL (75-99)
[2019-12-21] MEDS: ACETAMINOPHEN TAB 325 MG TAB PO PRN (15:09)
[2019-12-21 16:40] LABS: Glucose,Whole Blood 137 mg/dL (75-99)
[2019-12-21] MEDS ORDERED: LOSARTAN 50 MG TAB PO STA (18:55)
--- NOTE | 2019-12-21 19:52 | PN ---
PROGRESS NOTE This is an 84-year-old elderly lady with a history of hypertension who sees Dr. Pacheco in the outpatient setting. She was admitted to the hospital on 12/17/2019 with what seems to be complaints of weakness, generalized, shortness of breath, and she was found to have a troponin elevation. Echo revealed ejection fraction of 45% with lateral wall hypokinesia. She also had significant pulmonary hypertension with right- sided pressures of more than 60 mmHg. She was advised coronary angiography that was performed by Dr. Pederson and the study revealed significant lesions in the proximal/ostial LAD and circumflex. Distal left main also had a moderate lesion. Her right coronary artery was dominant relatively disease-free. She was advised aortocoronary bypass surgery. She was seen by the surgeon, Dr. Archibald, and he felt that, given her age and pulmonary hypertension, she has a substantially high risk for surgery and advised percutaneous intervention. I saw the patient today at length. 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 I suggested that we do a percutaneous intervention probably with an Impella support. This may be a bifurcation stenting, or I will do individual stenting of each ostial vessel with the option of including the distal left main as well. I discussed this at length with the patient, and I also spoke to her daughter Jennifer. We are planning on a bifurcation stenting probably with a DK Crush technique most likely. However, this will be performed on Saturday. We will continue heparin. Patient appears to be in mild CHF. I will give a small dose of Lasix intravenously, check labs again. She had a transesophageal echo that was performed today, and there is mild to moderate central mitral regurgitation with fairly well-preserved systolic function. There is no evidence of any shunt or thrombus. The patient understands that this is a high-risk procedure. There is a risk of mortality, morbidity, infection, vascular injury, bleeding, given the fact I will be using Impella. This was explained to the patient as well as her daughter. Her was hard of hearing, could not hear, but he will be here in person tomorrow. They understand all details and wish to proceed with the procedure, which is scheduled for day after tomorrow, Saturday, with Impella support, bifurcation stenting of distal left main and ostial circumflex and LAD. MMODL / IJN: [id number] /
[2019-12-21 20:40] LABS: Glucose,Whole Blood 100 mg/dL (75-99)
[2019-12-21] MEDS: POTASSIUM CHLORIDE ER 20 MEQ TAB.ER PO SCH ×2 (20:48→23:41)
[2019-12-21] MEDS: ATORVASTATIN 80 MG TAB PO SCH (20:48)
[2019-12-21] MEDS: FUROSEMIDE 10 MG/ML 2 ML VIAL IV SCH (20:49)
[2019-12-21] MEDS: HEPARIN SOD,PORK IN 0.45% NACL 25,000 UNIT in 0.45% NACL 1 250ML.BAG IV SCH (23:42)
[2019-12-22] MEDS: MUPIROCIN 2% OINT 22 GM TUBE NASAL SCH ×3 (05:39→20:42)
[2019-12-22 06:18] LABS: Glucose,Whole Blood 86 mg/dL (75-99)
[2019-12-22 08:21] LABS: Basophils # (A) 0.1 k/uL (0-0.2); Basophils % (A) 1 %; Eosinophils # (A) 0.6 k/uL (0-0.7); Eosinophils % (A) 5 %; HCT 35.9 % (34.0-46.0); HGB 11.3 gm/dL (11.4-16.0); Lymphocytes # (A) 2.6 k/uL (1.0-4.8); Lymphocytes % (A) 18 %; MCH 34.1 pg (25.0-35.0); MCHC 31.6 g/dL (31.0-37.0); MCV 108.1 fL (80.0-100.0); Macrocytosis Moderate; Mean Platelet Volume 8.9; Monocytes # (A) 0.5 k/uL (0-1.0); Monocytes % (A) 4 %; Neutrophils # (A) 10.4 k/uL (1.3-7.7); Neutrophils % (A) 73 %; Platelet Count 459 k/uL (150-450); RBC 3.32 m/uL (3.80-5.40); RDW 13.3 % (11.5-15.5); WBC 14.3 k/uL (3.8-10.6)
[2019-12-22 08:40] LABS: ALT 94 U/L (4-34); African American GFR (CKD) >90 (>60 ml/min/1.73 sqM); Anion Gap 7 mmol/L; Blood Urea Nitrogen 11 mg/dL (7-17); Calcium 8.4 mg/dL (8.4-10.2); Carbon Dioxide 22 mmol/L (22-30); Chloride 109 mmol/L (98-107); Glucose 90 mg/dL (74-99); Non-African American GFR(CKD) 82 (>60 ml/min/1.73 sqM); Sodium 138 mmol/L (137-145); Total Bilirubin 0.6 mg/dL (0.2-1.3); Total Protein 6.6 g/dL (6.3-8.2)
[2019-12-22 08:44] LABS: AST 57 U/L (14-36); Alkaline Phosphatase 122 U/L (38-126); Potassium 4.5 mmol/L (3.5-5.1)
--- NOTE | 2019-12-22 08:56 | P.PN ---
Subjective Progress Note Date: 12/22/19 Principal diagnosis: Multivessel coronary artery disease, non-STEMI this admission, mildly impaired left ventricular systolic function with EF 45-50%, moderate mitral valve regurgi tation and moderate to severe tricuspid valve regurgitation with severe pulmonary hypertension on 2-D echocardiogram, E. coli urinary tract infection this admission, recent fall at home. 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 The patient was seen and examined this more the bedside with Dr. Archibald. Family present at bedside. She was sitting up in bed and appears less short of breath. She denied any chest pain. Dr. Archibald did see the patient yesterday and recommended high risk stenting with Impella support if possible by cardiology due to extreme high risk of surgery. If stents unable to be placed, will offer coronary artery bypass surgery. This was discussed with Dr. Pederson, the patient and her family and all are in agreement. Objective - Vital Signs Vital signs: Vital Signs Temp 98.5 F 12/21/19 20:00 Pulse 77 12/22/19 04:00 Resp 18 12/22/19 04:00 BP 151/78 12/22/19 04:00 Pulse Ox 100 12/22/19 04:00 Intake & Output 12/21/19 12/22/19 12/22/19 18:59 06:59 18:59 Intake Total 544.973 284.289 Output Total 200 1100 Balance 344.973 -815.711 Weight 71.4 kg Intake: IV 150 150 .09 50 150 Intake, IV Titration 154.973 134.289 Amount Heparin Sod,Pork in 0.45% 104.973 134.289 NaCl 25,000 unit In 0.45 % NaCl 1 250ml.bag @ 12 UNITS/KG/HR 7.566 mls/hr IV .Q24H [facility] Rx#: [id number] cefTRIAXone 1 gm In 50 Sodium Chloride 0.9% 50 ml @ 100 mls/hr IVPB Q12H [facility] Rx#:[id number] Oral 240 Output: Urine 200 1100 Other: Voiding Method Bedside Commode Bedside Commode # Voids 2 1 - Constitutional General appearance: Present: cooperative, no acute distress, obese - Respiratory Details: Lungs sounds diminished bilaterally. Respirations even, slightly labored. Currently on 4 L nasal cannula with oxygen saturation 100%. Barely able to achieve 500 mL spirometry - Cardiovascular Details: S1, S2 present. Regular rate and rhythm, sinus rhythm on telemetry. Palpable peripheral pulses bilaterally. No edema present. No calf pain or tenderness noted. - Gastrointestinal Gastrointestinal Comment(s): Abdomen soft, nontender, nondistended. Active bowel sounds present 4 quadrants. Tolerating diet - Genitourinary Genitourinary Comment(s): Continues to void - Integumentary Integumentary Comment(s): Skin is warm and dry with evidence of good perfusion - Neurologic Neurologic: Present: CNII-XII intact - Musculoskeletal Musculoskeletal Comment(s): Ambulates with walker, left lower extremity weakness secondary to post polio syndrome - Psychiatric Psychiatric: Present: A&O x's 3, appropriate affect, intact judgment & insight - Allied health notes Allied health notes reviewed: nursing - Labs CBC & Chem 7: 12/22/19 07:45 12/22/19 07:45 Labs: Abnormal Lab Results - Last 24 Hours (Table) 12/21/19 12/21/19 12/21/19 Range/Units 11:48 16:36 20:35 WBC (3.8-10.6) k/uL RBC (3.80-5.40) m/uL Hgb (11.4-16.0) gm/dL MCV (80.0-100.0) fL Plt Count (150-450) k/uL Neutrophils # (1.3-7.7) k/uL APTT (22.0-30.0) sec Chloride (98-107) mmol/L POC Glucose (mg/dL) 159 H 137 H 100 H (75-99) mg/dL AST (14-36) U/L ALT (4-34) U/L Albumin (3.5-5.0) g/dL 12/22/19 12/22/19 12/22/19 Range/Units 07:45 07:45 07:45 WBC 14.3 H (3.8-10.6) k/uL RBC 3.32 L (3.80-5.40) m/uL Hgb 11.3 L (11.4-16.0) gm/dL MCV 108.1 H (80.0-100.0) fL Plt Count 459 H (150-450) k/uL Neutrophils # 10.4 H (1.3-7.7) k/uL APTT 40.3 H (22.0-30.0) sec Chloride 109 H (98-107) mmol/L POC Glucose (mg/dL) (75-99) mg/dL AST 57 H (14-36) U/L ALT 94 H (4-34) U/L Albumin 3.0 L (3.5-5.0) g/dL Microbiology - Last 24 Hours (Table) 12/16/19 Unknown Blood Culture - Preliminary Blood No Growth after 120 hours 12/19/19 21:26 Nasal Screen MRSA/MSSA - Final Nasal Swab Assessment and Plan Assessment: 1. Multivessel coronary artery disease, non-STEMI this admission 2. Normal left ventricular systolic function with EF 55%, mild to moderate central mitral valve regurgitation, mild aortic regurgitation, and mild tricuspid valve regurgitation on PATRIZIA completed yesterday 3. E. coli urinary tract infection this admission, currently on ceftriaxone 4. Recent fall at home with history of multiple falls at home 5. 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 Hypertension 7. Hyperlipidemia 8. Macular degeneration 9. Diverticulitis status post partial colectomy 10. Lifelong nonsmoker. Plan: 1. Continue aspirin, statin, ARB, beta annie therapy 2. Wean O2 as tolerated. Encourage incentive spirometry use 3. Increase activity, ambulate as tolerated 4. Plan is for stenting with [facility] support tomorrow morning with Dr. MONICA Murry. If stenting unable to be completed will discuss cardiac surgery 5. Continue antibiotics per infectious disease 6. More recommendations to follow based on success of stenting tomorrow Time with Patient: Greater than 30
[2019-12-22] MEDS: CALCIUM CARBONATE 500 MG CHEWABLE PO SCH (09:08)
[2019-12-22] MEDS: FUROSEMIDE 10 MG/ML 2 ML VIAL IV SCH ×2 (09:08→20:41)
[2019-12-22] MEDS: ASPIRIN 81 MG PO SCH (09:08)
[2019-12-22] MEDS: FAMOTIDINE 20 MG TAB PO SCH (09:08)
[2019-12-22] MEDS: LOSARTAN 50 MG TAB PO SCH (09:09)
[2019-12-22] MEDS: METOPROLOL TARTRATE 25 MG TAB PO SCH ×2 (09:09→20:41)
[2019-12-22] MEDS: MULTIVITAMINS, THERA 1 EACH TAB PO SCH (09:09)
[2019-12-22] MEDS: VIT A,C & E-LUTEIN-MINERALS 1 EACH TAB PO SCH (09:09)
[2019-12-22] MEDS: NON FORMULARY DRUG (Vitamin B Complex [Vitamin B Complex] 1 EACH Capsule) PO SCH (09:10)
[2019-12-22] MEDS ORDERED: SODIUM CHLORIDE 0.9% 1,000 ML in EMPTY BAG 1 BAG IV ONE (10:53)
[2019-12-22] MEDS ORDERED: ATORVASTATIN 80 MG TAB PO STA (10:53)
[2019-12-22] MEDS ORDERED: ASPIRIN 325 MG TAB PO STA (10:53)
[2019-12-22] MEDS ORDERED: ALPRAZolam 0.25 MG TAB PO PRN (10:53)
[2019-12-22] MEDS ORDERED: NITROGLYCERIN SL TABS 0.4 MG TAB SUBLINGUAL PRN (10:53)
[2019-12-22] MEDS ORDERED: ALPRAZolam 0.5 MG TAB PO PRN (10:53)
[2019-12-22 11:55] LABS: Glucose,Whole Blood 103 mg/dL (75-99)
--- NOTE | 2019-12-22 12:05 | P.PN ---
Subjective Progress Note Date: 12/22/19 This is a pleasant 84-year-old female who presented to the hospital with a non-ST elevation myocardial infarction. She underwent a cardiac catheterization by Dr. Sanchez which revealed a 40-50% stenosis of the distal left main, 95% stenosis of the ostial circumflex and 80% stenosis of the ostial LAD and the RCA was free of any significant disease. She was evaluated and seen by cardiothoracic surgery who felt the patient was extremely high risk. She also underwent a PATRIZIA which revealed moderate mitral regurgitation. Patient will be scheduled tomorrow to undergoPCI with Impella assist by Dr. Hugo Murry. This morning the patient was seen and examined, sitting up in her chair at bedside. Blood pressure 140/70 with a heart rate of 70, 100% on 4 L of oxygen. White blood cell count 14.3, hemoglobin 11.3, platelet count 459. Sodium 138, potassium 4.5, BUN 11, creatinine 0.6. Objective - Vital Signs Vital signs: Vital Signs Temp 98.5 F 12/21/19 20:00 Pulse 77 12/22/19 04:00 Resp 18 12/22/19 04:00 BP 151/78 12/22/19 04:00 Pulse Ox 100 12/22/19 04:00 Intake & Output 12/21/19 12/22/19 12/22/19 18:59 06:59 18:59 Intake Total 544.973 284.289 330.472 Output Total 200 1100 Balance 344.973 -815.711 330.472 Weight 71.4 kg Intake: IV 150 150 .09 50 150 Intake, IV Titration 154.973 134.289 90.472 Amount Heparin Sod,Pork in 0.45% 104.973 134.289 90.472 NaCl 25,000 unit In 0.45 % NaCl 1 250ml.bag @ 12 UNITS/KG/HR 7.566 mls/hr IV .Q24H [facility] Rx#: [id number] [id number] 1 gm In 50 Sodium Chloride 0.9% 50 ml @ 100 mls/hr IVPB Q12H [facility] Rx#:[id number] Oral 240 240 Output: Urine 200 1100 Other: Voiding Method Bedside Commode Bedside Commode # Voids 2 1 - Exam PHYSICAL EXAMINATION: GENERAL: 84-year-old female in no acute distress at the time of my examination HEENT: Head is atraumatic, normocephalic. Pupils equal, round. Sclera anicteric. Conjunctiva are clear. Mucous membranes of the mouth are moist. Neck is supple. There is no elevated jugular venous pressure. No carotid bruit is heard. HEART EXAMINATION: Heart S1 S2 1 systolic murmur is heard CHEST EXAMINATION: Lungs are clear to auscultation and precussion. No chest wall tenderness is noted on palpation or with deep breathing. ABDOMEN: Soft, nontender. Bowel sounds are heard. No organomegaly noted. EXTREMITIES: 2+ peripheral pulses with no evidence of peripheral edema and no calf tenderness noted. NEUROLOGIC patient is awake, alert and oriented 3 . . - Labs CBC & Chem 7: 12/22/19 07:45 12/22/19 07:45 Labs: Abnormal Lab Results - Last 24 Hours (Table) 12/21/19 12/21/19 12/22/19 Range/Units 16:36 20:35 07:45 WBC (3.8-10.6) k/uL RBC (3.80-5.40) m/uL Hgb (11.4-16.0) gm/dL MCV (80.0-100.0) fL Plt Count (150-450) k/uL Neutrophils # (1.3-7.7) k/uL APTT 40.3 H (22.0-30.0) sec Chloride (98-107) mmol/L POC Glucose (mg/dL) 137 H 100 H (75-99) mg/dL AST (14-36) U/L ALT (4-34) U/L Albumin (3.5-5.0) g/dL 12/22/19 12/22/19 12/22/19 Range/Units 07:45 07:45 11:41 WBC 14.3 H (3.8-10.6) k/uL RBC 3.32 L (3.80-5.40) m/uL Hgb 11.3 L (11.4-16.0) gm/dL MCV 108.1 H (80.0-100.0) fL Plt Count 459 H (150-450) k/uL Neutrophils # 10.4 H (1.3-7.7) k/uL APTT (22.0-30.0) sec Chloride 109 H (98-107) mmol/L POC Glucose (mg/dL) 103 H (75-99) mg/dL AST 57 H (14-36) U/L ALT 94 H (4-34) U/L Albumin 3.0 L (3.5-5.0) g/dL Microbiology - Last 24 Hours (Table) 12/16/19 Unknown Blood Culture - Preliminary Blood No Growth after 120 hours 12/19/19 21:26 Nasal Screen MRSA/MSSA - Final Nasal Swab Assessment and Plan Plan: Assessment and plan #1 non-ST elevation myocardial infarction, status post cardiac catheterization which revealed multivessel coronary artery disease. Patient felt to be high ris k for coronary artery bypass grafting surgery, she will be scheduled to undergo PCI tomorrow with Impella assist. #2 moderate mitral regurgitation #3 hypertension #4 hyperlipidemia #5 diverticulitis status post partial colectomy #6 history of polio at age 22 #7 E. coli urinary tract infection this admission #8 lifelong nonsmoker Plan We will continue the patient on her current medications. She is scheduled morning undergo PCI with Impella support. We will continue to follow. DNP note has been reviewed, I agree with a documented findings and plan of care. Patient was seen and examined.
--- NOTE | 2019-12-22 13:54 | P.CNPUL ---
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 Patient presented to the emergency department on 12/16/2019 primarily with symptoms weakness, fatigue, with significant heaviness in her arm. Patient denied any chest pain or shortness of breath. EKG was negative for any acute ST changes, and showed normal sinus rhythm, she had elevated troponins of 0.566, 1.840, and 1.550. Echocardiogram showed EF of 45-50% with moderately severe concentric left hypertrophy, severely dilated left atrium, mild aortic regurgitation, moderate mitral regurgitation moderate to severe tricuspid regurgitation and severe pulmonary hypertension. Cardiology ruled the patient in for non-ST elevated myocardial infarction. Patient was also found to have acute urinary tract infection for which she was placed on antibiotics, urine cultures positive for E. coli. Patient had heart catheterization on 12/20/2019 and was found to have severe ostial LAD and circumflex coronary artery stenosis with borderline distal left main stenosis. Patient was referred to CT surgery for possibility of surgical revascularization. Patient however was determined to be at very high risk for surgery due to frailty and other comorbidities, and the plan currently is to proceed with PCI and stenting of the LAD and circumflex with Impella support possibly tomorrow on 12/23/2019. CT chest without contrast showed small bilateral pleural effusions and associate compressive atelectasis without suspicious focal consolidation. We were asked to see in consultation for possible surgery, and pulmonary/critical care management following surgery. Review of Systems All systems: negative Constitutional: Reports fatigue, Reports weakness, Denies chills, Denies fever Eyes: denies blurred vision, denies pain Ears, nose, mouth and throat: Denies headache, Denies sore throat Cardiovascular: Denies chest pain, Denies shortness of breath Respiratory: Denies cough Gastrointestinal: Denies abdominal pain, Denies diarrhea, Denies nausea, Denies vomiting Genitourinary: Denies dysuria, Denies hematuria Musculoskeletal: Denies myalgias Integumentary: Denies pruritus, Denies rash Neurological: Denies numbness, Denies weakness Psychiatric: Denies anxiety, Denies depression Endocrine: Denies fatigue, Denies weight change Past Medical History Past Medical History: Hyperlipidemia, Hypertension, Osteoarthritis (OA) Additional Past Medical History / Comment(s): polio AGE 22. RT HIP AND LT KNEE.ANKLE.FOOT AFFECTED(POST POLIO SYNDROME)UES A WALKER WHEN UP, BEGINNING OF MAC DEGENERATION RT EYE. History of Any Multi-Drug Resistant Organisms: None Reported Past Surgical History: Bowel Resection, Cholecystectomy, Orthopedic Surgery (Bilateral shoulder surgeries.) Additional Past Surgical History / Comment(s): bladder suspension surgery 3, colonoscopy about 10 years ago showed diverticulosis, cholecystectomy, bilateral cataract surgery. Left leg surgery status post injury. Past Anesthesia/Blood Transfusion Reactions: No Reported Reaction Past Psychological History: No Psychological Hx Reported Smoking Status: Never smoker Past Alcohol Use History: None Reported Past Drug Use History: None Reported - Past Family History Father Family Medical History: Respiratory Disorder Mother Family Medical History: No Reported History Additional Family Medical History / Comment(s): lives to be 101 yo, liver failure Sister(s) Family Medical History: COPD, Fibromyalgia Daughter(s) Family Medical History: No Reported History Son(s) Family Medical History: Myocardial Infarction (ND) Medications and Allergies Home Medications Medication Instructions Recorded Confirmed Type Calcium Carbonate [Calcium] 600 mg PO DAILY 02/23/17 12/16/19 History Vit C/E/Zn/Coppr/Lutein/Zeaxan 1 cap PO DAILY 02/23/17 12/16/19 History [Preservision Areds 2 Softgel] Multivit-Min/FA/Lycopen/Lutein 1 tab PO DAILY 03/26/18 12/16/19 History [Centrum Silver Tablet] Aspirin EC [Ecotrin Low Dose] 81 mg PO DAILY 12/16/19 12/16/19 History Losartan [Cozaar] 50 mg PO DAILY 12/16/19 12/16/19 History Vitamin B Complex 1 cap PO DAILY 12/16/19 12/16/19 History Allergies Allergy/AdvReac Type Severity Reaction Status Date / Time adhesive Allergy Rash/Hives Verified 12/16/19 17:53 lisinopril Allergy Anaphylaxis Verified 12/16/19 17:53 Physical Exam Vitals: Vital Signs Temp Pulse Resp BP Pulse Ox 12/22/19 04:00 77 18 151/78 100 12/22/19 00:00 70 18 140/75 100 12/21/19 20:00 98.5 F 80 19 152/87 100 12/21/19 16:00 98.2 F 79 20 148/96 99 Intake and Output 12/21/19 12/22/19 12/22/19 22:59 06:59 14:59 Intake Total 284.289 330.472 Output Total 400 900 Balance -400 -615.711 330.472 Intake: IV 150 .09 150 Intake, IV Titration 134.289 90.472 Amount Heparin Sod,Pork in 0.45% 134.289 90.472 NaCl 25,000 unit In 0.45 % NaCl 1 250ml.bag @ 12 UNITS/KG/HR 7.566 mls/hr IV .Q24H [facility] Rx#: [id number] Oral 240 Output: Urine 400 900 Other: Voiding Method Bedside Commode # Voids 1 Weight 71.4 kg GENERAL EXAM: Alert, very pleasant, 84-year-old white female, on room air, pulse ox of 100%, comfortable in no apparent distress. HEAD: Normocephalic/atraumatic. EYES: Normal reaction of pupils, equal size. Conjunctiva pink, sclera white. NOSE: Clear with pink turbinates. THROAT: No erythema or exudates. NECK: No masses, no JVD, no thyroid enlargement, no adenopathy. CHEST: No chest wall deformity. Symmetrical expansion. LUNGS: Equal air entry with no crackles, wheeze, rhonchi or dullness. CVS: Regular rate and rhythm, normal S1 and S2, no gallops, no murmurs, no rubs ABDOMEN: Soft, nontender. No hepatosplenomegaly, normal bowel sounds, no guarding or rigidity. EXTREMITIES: No clubbing, no edema, no cyanosis, 2+ pulses and upper and lower extremities. MUSCULOSKELETAL: Muscle strength and tone normal. SPINE: No scoliosis or deformity SKIN: No rashes CENTRAL NERVOUS SYSTEM: Alert and oriented -3. No focal deficits, tone is normal in all 4 extremities. PSYCHIATRIC: Alert and oriented -3. Appropriate affect. Intact judgment and insight. Results - Laboratory Findings CBC and BMP: 12/22/19 07:45 12/22/19 07:45 PT/INR, D-dimer PT 11.1 sec (9.0-12.0) 12/20/19 06:54 INR 1.1 (<1.2) 12/20/19 06:54 Abnormal lab findings: Abnormal Labs 12/16/19 12/16/19 12/16/19 16:26 16:26 16:26 WBC 15.8 H RBC 3.47 L Hgb MCV 105.3 H Plt Count Neutrophils # 14.2 H Lymphocytes # 0.6 L APTT Chloride 108 H Carbon Dioxide 21 L BUN 28 H Glucose 129 H POC Glucose (mg/dL) Calcium 8.3 L AST 73 H ALT 53 H Alkaline Phosphatase 144 H Troponin I Total Protein Albumin 3.3 L Urine Appearance Turbid H Urine Protein 1+ H Urine Blood Moderate H Urine Nitrite Positive H Ur Leukocyte Esterase Large H Urine RBC 9 H Urine WBC >182 H Urine WBC Clumps Many H Ur Squamous Epith Cells 16 H Amorphous Sediment Rare H Urine Bacteria Many H Hyaline Casts 9 H 12/16/19 12/17/19 12/17/19 16:26 00:18 05:31 WBC RBC Hgb MCV Plt Count Neutrophils # Lymphocytes # APTT 58.8 H 48.6 H Chloride Carbon Dioxide BUN Glucose POC Glucose (mg/dL) Calcium AST ALT Alkaline Phosphatase Troponin I 0.566 H* Total Protein Albumin Urine Appearance Urine Protein Urine Blood Urine Nitrite Ur Leukocyte Esterase Urine RBC Urine WBC Urine WBC Clumps Ur Squamous Epith Cells Amorphous Sediment Urine Bacteria Hyaline Casts 12/17/19 12/17/19 12/17/19 05:31 09:34 12:08 WBC RBC Hgb MCV Plt Count Neutrophils # Lymphocytes # APTT 41.2 H Chloride Carbon Dioxide BUN Glucose POC Glucose (mg/dL) Calcium AST ALT Alkaline Phosphatase Troponin I 1.840 H* 1.550 H* Total Protein Albumin Urine Appearance Urine Protein Urine Blood Urine Nitrite Ur Leukocyte Esterase Urine RBC Urine WBC Urine WBC Clumps Ur Squamous Epith Cells Amorphous Sediment Urine Bacteria Hyaline Casts 12/17/19 12/18/19 12/18/19 12:08 08:51 08:51 WBC RBC 3.24 L Hgb 10.9 L MCV 107.9 H Plt Count Neutrophils # Lymphocytes # APTT Chloride 111 H Carbon Dioxide 19 L BUN Glucose 134 H POC Glucose (mg/dL) Calcium 7.9 L AST ALT Alkaline Phosphatase Troponin I 1.240 H* Total Protein Albumin Urine Appearance Urine Protein Urine Blood Urine Nitrite Ur Leukocyte Esterase Urine RBC Urine WBC Urine WBC Clumps Ur Squamous Epith Cells Amorphous Sediment Urine Bacteria Hyaline Casts 12/18/19 12/19/19 12/19/19 08:51 07:19 20:56 WBC RBC Hgb MCV Plt Count Neutrophils # Lymphocytes # APTT 46.6 H Chloride 113 H Carbon Dioxide 19 L BUN Glucose POC Glucose (mg/dL) 118 H Calcium 8.1 L AST ALT Alkaline Phosphatase Troponin I Total Protein Albumin Urine Appearance Urine Protein Urine Blood Urine Nitrite Ur Leukocyte Esterase Urine RBC Urine WBC Urine WBC Clumps Ur Squamous Epith Cells Amorphous Sediment Urine Bacteria Hyaline Casts 12/20/19 12/20/19 12/20/19 00:41 06:54 06:54 WBC 14.0 H RBC 3.28 L Hgb 11.2 L MCV 107.6 H Plt Count Neutrophils # 10.5 H Lymphocytes # APTT 34.9 H Chloride 111 H Carbon Dioxide 21 L BUN Glucose 107 H POC Glucose (mg/dL) Calcium 8.3 L AST 84 H ALT 121 H Alkaline Phosphatase 147 H Troponin I Total Protein 6.1 L Albumin 2.8 L Urine Appearance Urine Protein Urine Blood Urine Nitrite Ur Leukocyte Esterase Urine RBC Urine WBC Urine WBC Clumps Ur Squamous Epith Cells Amorphous Sediment Urine Bacteria Hyaline Casts 12/20/19 12/20/19 12/20/19 06:54 11:43 16:41 WBC RBC Hgb MCV Plt Count Neutrophils # Lymphocytes # APTT 44.8 H Chloride Carbon Dioxide BUN Glucose POC Glucose (mg/dL) 148 H 143 H Calcium AST ALT Alkaline Phosphatase Troponin I Total Protein Albumin Urine Appearance Urine Protein Urine Blood Urine Nitrite Ur Leukocyte Esterase Urine RBC Urine WBC Urine WBC Clumps Ur Squamous Epith Cells Amorphous Sediment Urine Bacteria Hyaline Casts 12/20/19 12/21/19 12/21/19 20:07 11:48 16:36 WBC RBC Hgb MCV Plt Count Neutrophils # Lymphocytes # APTT Chloride Carbon Dioxide BUN Glucose POC Glucose (mg/dL) 141 H 159 H 137 H Calcium AST ALT Alkaline Phosphatase Troponin I Total Protein Albumin Urine Appearance Urine Protein Urine Blood Urine Nitrite Ur Leukocyte Esterase Urine RBC Urine WBC Urine WBC Clumps Ur Squamous Epith Cells Amorphous Sediment Urine Bacteria Hyaline Casts 12/21/19 12/22/19 12/22/19 20:35 07:45 07:45 WBC 14.3 H RBC 3.32 L Hgb 11.3 L MCV 108.1 H Plt Count 459 H Neutrophils # 10.4 H Lymphocytes # APTT 40.3 H Chloride Carbon Dioxide BUN Glucose POC Glucose (mg/dL) 100 H Calcium AST ALT Alkaline Phosphatase Troponin I Total Protein Albumin Urine Appearance Urine Protein Urine Blood Urine Nitrite Ur Leukocyte Esterase Urine RBC Urine WBC Urine WBC Clumps Ur Squamous Epith Cells Amorphous Sediment Urine Bacteria Hyaline Casts 12/22/19 12/22/19 07:45 11:41 WBC RBC Hgb MCV Plt Count Neutrophils # Lymphocytes # APTT Chloride 109 H Carbon Dioxide BUN Glucose POC Glucose (mg/dL) 103 H Calcium AST 57 H ALT 94 H Alkaline Phosphatase Troponin I Total Protein Albumin 3.0 L Urine Appearance Urine Protein Urine Blood Urine Nitrite Ur Leukocyte Esterase Urine RBC Urine WBC Urine WBC Clumps Ur Squamous Epith Cells Amorphous Sediment Urine Bacteria Hyaline Casts - Diagnostic Findings Chest x-ray: report reviewed, image reviewed CT scan - chest: report reviewed, image reviewed Additional studies: EKG, echocardiogram, transesophageal echocardiogram, cardiac cath report reviewed Assessment and Plan Plan: Assessment: #1. Non-ST elevated myocardial infarction #2. Multivessel coronary artery disease, was determined to be too high risk for surgical intervention, awaiting PCI and stenting with Impala support of the circumflex and LAD coronary arteries on 12/23/2019 #3. Severe pulmonary hypertension, moderate mitral valve regurg, and moderate to severe tricuspid valve regurgitation and mildly impaired left ventricular systolic function with EF of 45-50% #4. History of hypertension #5. Hyperlipidemia #6. 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 History of macular degeneration #8. History of diverticulitis status post partial colectomy #9. Lifetime nonsmoker Plan: Patient with decision has been made not to proceed with surgical revascularization at this time, and the plan is to proceed with stenting with Impala support of the LAD and the circumflex coronary arteries. From pulmonary perspective patient is not having any shortness of breath, she is on room air, in the event she does go to surgery we will be glad to follow her in the postoperative period. Encourage deep breathing and coughing. CT chest has been reviewed I performed a history & physical examination of the patient and discussed their management with my nurse practitioner, Jazzy Aggarwal. I reviewed the nurse practitioner's note and agree with the documented findings and plan of care. Lung sounds are positive for clear breath sounds. The findings and the impression was discussed with the patient. I attest to the documentation by the nurse practitioner. Time with Patient: Greater than 30
--- NOTE | 2019-12-22 13:55 | P.PN ---
Subjective Progress Note Date: 12/22/19 HISTORY OF PRESENT ILLNESS This is an 84-year-old female one of Dr. Pacheco and Dr. 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 Patient states that yesterday she had sudden onset of increased weakness with significant heaviness in her arm. She denied having any chest pain or shortness of breath. No heaviness in her chest. Patient came into [facility] emergency center for evaluation. EKG with normal sinus rhythm with no acute ST changes. Temperature 99.9, heart rate 77, blood pressure 144/79. WBC 15.8, hemoglobin 11.8. Urinalysis was turbid, nitrite positive, blood moderate, leukoesterase large, squamous cell 16, bacteria many. Total bilirubin 1.1, AST 73, ALT 53, alk phos is 144. Troponin 0.566, 1.840, 1.550. Triglycerides 86, cholesterol 109, LDL 48, HDL 44. CAT scan of the brain revealed cerebral atrophy. No acute intracranial abnormality. Echocardiogram reveals EF of 45- 50% with moderate concentric left hypertrophy, LA severely dilated, mild aortic regurgitation, moderate mitral regurgitation, moderate to severe tricuspid regurgitation, severe pulmonary hypertension. Chest x-ray reveals no acute cardiopulmonary disease. Patient was admitted to the cardio stepdown unit and consult with cardiology requested. 12/17: Cardiology is following and plan for heart catheterization on Saturday. Patient is under treatment for acute UTI and urine culture showing gram-negative bacilli. Patient denies having any chest pain or shortness of breath. No lightheadedness or dizziness. She has been afebrile, heart rate 83, blood pressure 156/75, pulse ox 97% on room air. Repeat blood work reveals WBC 9.3, hemoglobin 10.9. CO2 19, creatinine 0.65. 12/18: Patient is resting up in bed with family at bedside. Patient denies any chest pain or difficulty breathing nausea or vomiting. Patient has been ambulatory in her room without any difficulties. Patient is scheduled for heart cath today. Patient is anxious to go home. Patient denies any dysuria or frequency. 12/19: Patient was found to have multivessel coronary artery disease with moderate mitral valve regurgitation and [id number] tricuspid valve regurgitation and seen and evaluated for myocardial revascularization surgery. Patient is considered to be very high risk for surgery due to friability and other comorbidities trans-esophageal echocardiogram will be obtained to make further consideration for surgery. Patient is on sitting up in chair in no acute distress. Patient denies any chest pain at this time she is able to ambulate to the bathroom without any difficulties. Patient has been afebrile. Pulse rate 98, respirations 18, blood pressure 1 4674 and pulse ox 94% on room air. Hemoglobin 11.2, potassium 3.6, BUN 11, creatinine 0.67 12/20: Patient underwent PATRIZIA today which revealed mild to moderate central mitral regurgitation. Normal LV systolic function. Patient has been seen by cardiothoracic surgery with plan for CABG tentatively scheduled for Saturday. Patient has been afebrile, heart rate 80, blood pressure 144/87, pulse ox 90% on 4 L nasal cannula. Repeat blood work ordered for tomorrow. 12/21: CTS and cardiology have determined that patient is too high risk for open heart surgery. Patient is scheduled tomorrow to undergo PCI with Impella assist by Dr. Hugo Murry. Blood pressure 140/70 with a heart rate of 70, 100% on 4 L of oxygen. WBC 14.3, hemoglobin 11.3, platelet count 459. Sodium 138, potassium 4.5, BUN 11, creatinine 0.6. patient's and family are at bedside. All questions have been answered. REVIEW OF SYSTEMS Constitutional: No fever, no chills, no night sweats. No weight change. No weakness, fatigue or lethargy. No daytime sleepiness. EENT: No headache. No blurred vision or double vision, no loss of vision. No dizziness. Lungs: No shortness of breath, cough, no sputum production. No wheezing. Cardiovascular: No chest pain, no lower extremity edema. No palpitations. No paroxysmal nocturnal dyspnea. No orthopnea. No lightheadedness or dizziness. No syncopal episodes. Abdominal: No abdominal pain. No nausea, vomiting. No diarrhea. No const ipation. No bloody or tarry stools.. No loss of appetite. Genitourinary: No dysuria, increased frequency, urgency. No urinary retention. Musculoskeletal: No myalgias. No muscle weakness, no gait dysfunction, no frequent falls. No back pain. No neck pain. Integumentary: No wounds, no lesions. No rash or pruritus. No unusual bruising. No change in hair or nails. Neurologic: No aphasia. No facial droop. No change in mentation. No head injury. No headache. No paralysis. No paresthesia. Psychiatric: No depression. No anxiety. No mood swings. Endocrine: No abnormal blood sugars. No weight change. No excessive sweating or thirst. No cold intolerance. PHYSICAL EXAMINATION Gen: This is an 84-year-old female. Patient is sitting in chair and appears to be comfortable and in no acute distress. HEENT: Head is atraumatic, normocephalic. Pupils equal, round. Sclerae is anicteric. NECK: Supple. No JVD. No lymphadenopathy. No thyromegaly. LUNGS: Clear to auscultation. No wheezes or rhonchi. No intercostal retractions. HEART: Regular rate and rhythm. Systolic murmur. ABDOMEN: Soft. Bowel sounds are present. No masses. No tenderness. EXTREMITIES: No pedal edema. No calf tenderness. Dorsalis pedis +2 bilaterally. NEUROLOGICAL: Patient is awake, alert and oriented x3. Cranial nerves 2 through 12 are grossly intact. ASSESSMENT AND PLAN 1. Non-ST elevated myocardial infarction with multivessel coronary artery di sease. Cardiology consult appreciated. Echocardiogram as above. Continue aspirin 81 mg daily, atorvastatin, Lopressor, lasix 20 mg IVP q12 hr. Patient is scheduled for PCI with Impella assist by Dr. Hugo Murry on Saturday. PATRIZIA and heart catheterization report as above. 2. Hypertension and hypertensive cardiovascular disease. Continue losartan increased to 100 mg daily. 3. Hyperlipidemia. Continue Lipitor 80 mg. 4. AMD. Continue PreserVision 1 tablet once every day. 5. History of polio syndrome with left leg weakness. 6. History of diverticulitis and partial colectomy, stable. 7. DVT prophylaxis. 8. GI prophylaxis. Continue Pepcid 20 mg PO every 12 hours. 9. E. coli acute urinary tract infection. Patient is on ceftriaxone. Discharge plan: home with home care. Impression and plan of care have been directed as dictated by the signing physician. Ann Dunne nurse practitioner acting as scribe for signing physician. Objective - Vital Signs Vital signs: Vital Signs Temp 98.5 F 12/21/19 20:00 Pulse 77 12/22/19 04:00 Resp 18 12/22/19 04:00 BP 151/78 12/22/19 04:00 Pulse Ox 100 12/22/19 04:00 Intake & Output 12/21/19 12/22/19 12/22/19 18:59 06:59 18:59 Intake Total 544.973 284.289 Output Total 200 1100 Balance 344.973 -815.711 Weight 71.4 kg Intake: IV 150 150 .09 50 150 Intake, IV Titration 154.973 134.289 Amount Heparin Sod,Pork in 0.45% 104.973 134.289 NaCl 25,000 unit In 0.45 % NaCl 1 250ml.bag @ 12 UNITS/KG/HR 7.566 mls/hr IV .Q24H [facility] Rx#: [id number] cefTRIAXone 1 gm In 50 Sodium Chloride 0.9% 50 ml @ 100 mls/hr IVPB Q12H [facility] Rx#:[id number] Oral 240 Output: Urine 200 1100 Other: Voiding Method Bedside Commode Bedside Commode # Voids 2 1 - Labs CBC & Chem 7: 12/22/19 07:45 12/22/19 07:45 Labs: Abnormal Lab Results - Last 24 Hours (Table) 12/21/19 12/21/19 12/21/19 Range/Units 11:48 16:36 20:35 WBC (3.8-10.6) k/uL RBC (3.80-5.40) m/uL Hgb (11.4-16.0) gm/dL MCV (80.0-100.0) fL Plt Count (150-450) k/uL Neutrophils # (1.3-7.7) k/uL APTT (22.0-30.0) sec POC Glucose (mg/dL) 159 H 137 H 100 H (75-99) mg/dL 12/22/19 12/22/19 Range/Units 07:45 07:45 WBC 14.3 H (3.8-10.6) k/uL RBC 3.32 L (3.80-5.40) m/uL Hgb 11.3 L (11.4-16.0) gm/dL MCV 108.1 H (80.0-100.0) fL Plt Count 459 H (150-450) k/uL Neutrophils # 10.4 H (1.3-7.7) k/uL APTT 40.3 H (22.0-30.0) sec POC Glucose (mg/dL) (75-99) mg/dL Microbiology - Last 24 Hours (Table) 12/16/19 Unknown Blood Culture - Preliminary Blood No Growth after 120 hours 12/19/19 21:26 Nasal Screen MRSA/MSSA - Final Nasal Swab
[2019-12-22 14:23] VITALS: BMI 31.8
[2019-12-22] MEDS: ATORVASTATIN 80 MG TAB PO SCH (20:41)
[2019-12-23] MEDS: HEPARIN SOD,PORK IN 0.45% NACL 25,000 UNIT in 0.45% NACL 1 250ML.BAG IV SCH ×2 (00:11→14:58)
[2019-12-23] MEDS: MULTIVITAMINS, THERA 1 EACH TAB PO SCH (06:28)
[2019-12-23] MEDS: METOPROLOL TARTRATE 25 MG TAB PO SCH ×2 (06:28→21:05)
[2019-12-23] MEDS: LOSARTAN 50 MG TAB PO SCH (06:28)
[2019-12-23] MEDS: ASPIRIN 81 MG PO SCH (06:28)
[2019-12-23] MEDS: VIT A,C & E-LUTEIN-MINERALS 1 EACH TAB PO SCH (06:29)
[2019-12-23] MEDS: NON FORMULARY DRUG (Vitamin B Complex [Vitamin B Complex] 1 EACH Capsule) PO SCH (09:24)
[2019-12-23] MEDS: MUPIROCIN 2% OINT 22 GM TUBE NASAL SCH (09:28)
[2019-12-23] MEDS ORDERED: LIDOCAINE 1% INJ 10MG/ML (20 ML MDV) ONE ×2 (09:59→11:17)
--- NOTE | 2019-12-23 09:59 | P.VSCSTY ---
Greater Saphenous Vein Mapping This is bilateral lower extremity greater saphenous vein mapping. Date of service: 12/19/2019 Vein quality and ultrasound appearance: We see no intraluminal thrombus or obvious wall changes. Vein size groin right : 5.9 x 4.4 groin left: 3.9 x 3.5 High thigh right: 3.8 x 3.4 high thigh left: 5.1 x 4.2 Mid thigh right: 2.6 x 2.8 mid thigh left: 2.9 x 3.4 Above-knee right: 3.0 x 2.0 above-knee left: 2.8 x 2.1 Below knee right: 2.0 x 2.1 below-knee left: 2.8 x 2.5 Mid calf right: 2.2 x 1.9 mid calf left: 2.4 x 2.4 Ankle right: 1.1 x 0.9 ankle left: 2.2 x 1.4 Impression: Usable bilateral greater saphenous vein. The right at the knee and below may be a bit small for use as conduit. Also the left ankle may be a bit small..
[2019-12-23] MEDS ORDERED: HEPARIN SODIUM 1,000 UN/ML (10ML VL) ONE ×2 (10:00→13:27)
--- NOTE | 2019-12-23 10:00 | P.ARTDOP ---
Arterial Doppler LOWER EXTREMITY ARTERIAL DOPPLER: DATE OF SERVICE: 12/20/2019 Reason for study: Preop CABG. Doppler waveforms: Multiphasic bilaterally throughout. Pulse volume recording: []. Pressure gradients: No significant gradients. Ankle-brachial indices: Greater than 1 on the right and 0.98 on the left. Toe brachial indices: 0.62 on the right, 0.66 on the left, toe waveforms a bit blunted on the right. Impression: Appears to be normal study. Blunting of waveforms on the right of uncertain significance.
[2019-12-23] MEDS ORDERED: fentaNYL (PF) 50 MCG/ML 2 ML AMP ONE (10:37)
[2019-12-23] MEDS ORDERED: IV FLUID CONTINUATION 1,000 ML IV ONE (10:48)
[2019-12-23] MEDS: MIDAZOLAM 2 MG/2 ML VIAL IVP ONE ×2 (11:01→12:20)
[2019-12-23] MEDS ORDERED: LIDOCAINE 1% INJ 10MG/ML (20 ML MDV) SQ ONE (11:09)
[2019-12-23] MEDS: HEPARIN SODIUM 1,000 UN/ML (10ML VL) IV ONE ×6 (11:31→14:26)
[2019-12-23] MEDS ORDERED: NITROGLYCERIN 1000MCG/10ML SYRINGE INTRACORON ONE (11:39)
[2019-12-23] MEDS ORDERED: IOPAMIDOL-250 100ML BTL INTRAARTER ONE ×4 (11:57→14:42)
[2019-12-23] MEDS ORDERED: TICAGRELOR 90 MG TAB ONE (13:13)
[2019-12-23] MEDS ORDERED: TICAGRELOR 90 MG TAB PO ONE (13:14)
--- NOTE | 2019-12-23 13:23 | P.PN ---
Subjective Progress Note Date: 12/23/19 HISTORY OF PRESENT ILLNESS This is an 84-year-old female one of Dr. Pacheco and Dr. 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 Patient states that yesterday she had sudden onset of increased weakness with significant heaviness in her arm. She denied having any chest pain or shortness of breath. No heaviness in her chest. Patient came into [facility] emergency center for evaluation. EKG with normal sinus rhythm with no acute ST changes. Temperature 99.9, heart rate 77, blood pressure 144/79. WBC 15.8, hemoglobin 11.8. Urinalysis was turbid, nitrite positive, blood moderate, leukoesterase large, squamous cell 16, bacteria many. Total bilirubin 1.1, AST 73, ALT 53, alk phos is 144. Troponin 0.566, 1.840, 1.550. Triglycerides 86, cholesterol 109, LDL 48, HDL 44. CAT scan of the brain revealed cerebral atrophy. No acute intracranial abnormality. Echocardiogram reveals EF of 45- 50% with moderate concentric left hypertrophy, LA severely dilated, mild aortic regurgitation, moderate mitral regurgitation, moderate to severe tricuspid regurgitation, severe pulmonary hypertension. Chest x-ray reveals no acute cardiopulmonary disease. Patient was admitted to the cardio stepdown unit and consult with cardiology requested. 12/17: Cardiology is following and plan for heart catheterization on Saturday. Patient is under treatment for acute UTI and urine culture showing gram-negative bacilli. Patient denies having any chest pain or shortness of breath. No lightheadedness or dizziness. She has been afebrile, heart rate 83, blood pressure 156/75, pulse ox 97% on room air. Repeat blood work reveals WBC 9.3, hemoglobin 10.9. CO2 19, creatinine 0.65. 12/18: Patient is resting up in bed with family at bedside. Patient denies any chest pain or difficulty breathing nausea or vomiting. Patient has been ambulatory in her room without any difficulties. Patient is scheduled for heart cath today. Patient is anxious to go home. Patient denies any dysuria or frequency. 12/19: Patient was found to have multivessel coronary artery disease with moderate mitral valve regurgitation and [id number] tricuspid valve regurgitation and seen and evaluated for myocardial revascularization surgery. Patient is considered to be very high risk for surgery due to friability and other comorbidities trans-esophageal echocardiogram will be obtained to make further consideration for surgery. Patient is on sitting up in chair in no acute distress. Patient denies any chest pain at this time she is able to ambulate to the bathroom without any difficulties. Patient has been afebrile. Pulse rate 98, respirations 18, blood pressure 1 4674 and pulse ox 94% on room air. Hemoglobin 11.2, potassium 3.6, BUN 11, creatinine 0.67 12/20: Patient underwent PATRIZIA today which revealed mild to moderate central mitral regurgitation. Normal LV systolic function. Patient has been seen by cardiothoracic surgery with plan for CABG tentatively scheduled for Saturday. Patient has been afebrile, heart rate 80, blood pressure 144/87, pulse ox 90% on 4 L nasal cannula. Repeat blood work ordered for tomorrow. 12/21: CTS and cardiology have determined that patient is too high risk for open heart surgery. Patient is scheduled tomorrow to undergo PCI with Impella assist by Dr. Hugo Murry. Blood pressure 140/70 with a heart rate of 70, 100% on 4 L of oxygen. WBC 14.3, hemoglobin 11.3, platelet count 459. Sodium 138, potassium 4.5, BUN 11, creatinine 0.6. patient's and family are at bedside. All questions have been answered. 12/22: Patient denies having any chest pain or shortness of breath. She states in general she is feeling well. She is scheduled for PCI today with Dr. Murry. Patient has been afebrile, heart rate 68, blood pressure 156/93, pulse ox 93% on room air. REVIEW OF SYSTEMS Constitutional: No fever, no chills, no night sweats. No weight change. No weakness, fatigue or lethargy. No daytime sleepiness. EENT: No headache. No blurred vision or double vision, no loss of vision. No dizziness. Lungs: No shortness of breath, cough, no sputum production. No wheezing. Cardiovascular: No chest pain, no lower extremity edema. No palpitations. No paroxysmal nocturnal dyspnea. No orthopnea. No lightheadedness or dizziness. No syncopal episodes. Abdominal: No abdominal pain. No nausea, vomiting. No diarrhea. No constipation. No bloody or tarry stools.. No loss of appetite. Genitourinary: No dysuria, increased frequency, urgency. No urinary retention. Musculoskeletal: No myalgias. No muscle weakness, no gait dysfunction, no frequent falls. No back pain. No neck pain. Integumentary: No wounds, no lesions. No rash or pruritus. No unusual bruising. No change in hair or nails. Neurologic: No aphasia. No facial droop. No change in mentation. No head injury. No headache. No paralysis. No paresthesia. Psychiatric: No depression. No anxiety. Endocrine: No abnormal blood sugars. No weight change. No excessive sweating or thirst. No cold intolerance. PHYSICAL EXAMINATION Gen: This is an 84-year-old female. Patient is sitting in chair and appears to be in no acute distress. HEENT: Head is atraumatic, normocephalic. Pupils equal, round. Sclerae is anicteric. NECK: Supple. No JVD. No lymphadenopathy. No thyromegaly. LUNGS: Clear to auscultation. No wheezes or rhonchi. No intercostal retractions. HEART: Regular rate and rhythm. Systolic murmur. ABDOMEN: Soft. Bowel sounds are present. No masses. No tenderness. EXTREMITIES: No pedal edema. No calf tenderness. Dorsalis pedis +2 bilaterally. NEUROLOGICAL: Patient is awake, alert and oriented x3. Cranial nerves 2 through 12 are grossly intact. ASSESSMENT AND PLAN 1. Non-ST elevated myocardial infarction with multivessel coronary artery disease. Cardiology consult appreciated. Echocardiogram as above. Continue aspirin 81 mg daily, atorvastatin, Lopressor, lasix 20 mg IVP q12 hr. Patient is scheduled for PCI with Impella assist by Dr. Hugo Murry today. PATRIZIA and heart catheterization report as above. 2. Hypertension and hypertensive cardiovascular disease. Continue losartan increased to 100 mg daily. 3. Hyperlipidemia. Continue Lipitor 80 mg. 4. AMD. Continue PreserVision 1 tablet once every day. 5. History of polio syndrome with left leg weakness. 6. History of diverticulitis and partial colectomy, stable. 7. DVT prophylaxis. 8. GI prophylaxis. Continue Pepcid 20 mg PO every 12 hours. 9. E. coli acute urinary tract infection. Patient is on ceftriaxone. Discharge plan: home with home care most likely. Impression and plan of care have been directed as dictated by the signing dillon valadez. Ann Dunne nurse practitioner acting as scribe for signing physician. Objective - Vital Signs Vital signs: Vital Signs Temp 98.1 F 12/22/19 20:00 Pulse 71 12/23/19 04:00 Resp 19 12/23/19 04:00 BP 159/74 12/23/19 04:00 Pulse Ox 97 12/23/19 04:00 Intake & Output 12/22/19 12/23/19 12/23/19 18:59 06:59 18:59 Intake Total 880.472 159.528 Output Total 180 Balance 880.472 -20.472 Weight 71.4 kg 70.7 kg Intake: IV 500 .09 500 Intake, IV Titration 140.472 159.528 Amount Heparin Sod,Pork in 0.45% 90.472 159.528 NaCl 25,000 unit In 0.45 % NaCl 1 250ml.bag @ 12 UNITS/KG/HR 7.566 mls/hr IV .Q24H [facility] Rx#: [id number] cefTRIAXone 1 gm In 50 Sodium Chloride 0.9% 50 ml @ 100 mls/hr IVPB Q12H [facility] Rx#:[id number] Oral 240 Output: Urine 180 Other: Voiding Method Bedside Commode Diaper # Voids 6 1 - Labs CBC & Chem 7: 12/22/19 07:45 12/22/19 07:45 Labs: Abnormal Lab Results - Last 24 Hours (Table) 12/22/19 12/22/19 12/22/19 Range/Units 07:45 11:41 15:01 APTT 61.5 H (22.0-30.0) sec Chloride 109 H (98-107) mmol/L POC Glucose (mg/dL) 103 H (75-99) mg/dL AST 57 H (14-36) U/L ALT 94 H (4-34) U/L Albumin 3.0 L (3.5-5.0) g/dL 12/23/19 Range/Units 07:31 APTT 65.0 H (22.0-30.0) sec Chloride (98-107) mmol/L POC Glucose (mg/dL) (75-99) mg/dL AST (14-36) U/L ALT (4-34) U/L Albumin (3.5-5.0) g/dL Microbiology - Last 24 Hours (Table) 12/16/19 Unknown Blood Culture - Final Blood No Growth after 144 hours
[2019-12-23] MEDS ORDERED: NOREPINEPHRINE 4 MG in SODIUM CHLORIDE 0.9% 250 ML IV ONE (14:01)
[2019-12-23] MEDS ORDERED: EPINEPHrine 1 MG/ML 1 ML AMP IV ONE (14:30)
[2019-12-23] MEDS ORDERED: FUROSEMIDE 10 MG/ML 4 ML VIAL ONE (14:32)
[2019-12-23] MEDS ORDERED: FUROSEMIDE 10 MG/ML 4 ML VIAL IV ONE (14:42)
[2019-12-23] MEDS: NOREPINEPHRINE 4 MG in SODIUM CHLORIDE 0.9% 250 ML IV SCH (15:15)
[2019-12-23] MEDS: SODIUM CHLORIDE 0.9% 1,000 ML IV SCH ×2 (15:15→17:28)
[2019-12-23 15:19] LABS: Glucose,Whole Blood 177 mg/dL (75-99)
[2019-12-23 15:37] LABS: MCH 35.9 pg (25.0-35.0); MCV 108.8 fL (80.0-100.0); Macrocytosis Marked; Mean Platelet Volume 7.5; Platelet Count 394 k/uL (150-450); RBC 2.29 m/uL (3.80-5.40); RDW 14.4 % (11.5-15.5); WBC 17.7 k/uL (3.8-10.6)
[2019-12-23 15:44] LABS: HGB 8.2 gm/dL (11.4-16.0)
--- NOTE | 2019-12-23 16:21 | P.PN ---
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 Patient presented to the emergency department on 12/16/2019 primarily with symptoms weakness, fatigue, with significant heaviness in her arm. Patient denied any chest pain or shortness of breath. EKG was negative for any acute ST changes, and showed normal sinus rhythm, she had elevated troponins of 0.566, 1.840, and 1.550. Echocardiogram showed EF of 45-50% with moderately severe concentric left hypertrophy, severely dilated left atrium, mild aortic regurgitation, moderate mitral regurgitation moderate to severe tricuspid regurgitation and severe pulmonary hypertension. Cardiology ruled the patient in for non-ST elevated myocardial infarction. Patient was also found to have acute urinary tract infection for which she was placed on antibiotics, urine cultures positive for E. coli. Patient had heart catheterization on 12/20/2019 and was found to have severe ostial LAD and circumflex coronary artery stenosis with borderline distal left main stenosis. Patient was referred to CT surgery for possibility of surgical revascularizat ion. Patient however was determined to be at very high risk for surgery due to frailty and other comorbidities, and the plan currently is to proceed with PCI and stenting of the LAD and circumflex with Impella support possibly tomorrow on 12/23/2019. CT chest without contrast showed small bilateral pleural effusions and associate compressive atelectasis without suspicious focal consolidation. W e were asked to see in consultation for possible surgery, and pulmonary/critical care management following surgery. Patient was reevaluated today on 12/23/19, a shunt underwent percutaneous transluminal coronary angioplasty with coronary drug eluting stents placement today. Postoperatively the patient was transferred back to the ICU, she was hypotensive requiring levo fed presently at 0.04 mcg/kg/m, patient is complaining of a bit of shortness of breath and productive cough. No fever no chills no hemoptysis no chest pain. 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 CBC today showed WBC of 17.7 hemoglobin is 8.2 her PTT was therapeutic earlier at 65. Chest x-ray is pending. Objective - Vital Signs Vital signs: Vital Signs Temp 98.3 F 12/23/19 08:05 Pulse 68 12/23/19 08:05 Resp 18 12/23/19 08:05 BP 156/93 12/23/19 08:05 Pulse Ox 93 L 12/23/19 08:05 Intake & Output 12/22/19 12/23/19 12/23/19 18:59 06:59 18:59 Intake Total 880.472 159.528 405 Output Total 180 250 Balance 880.472 -20.472 155 Weight 71.4 kg 70.7 kg Intake: IV 500 405 .09 500 Intake, IV Titration 140.472 159.528 Amount Heparin Sod,Pork in 0.45% 90.472 159.528 NaCl 25,000 unit In 0.45 % NaCl 1 250ml.bag @ 12 UNITS/KG/HR 7.566 mls/hr IV .Q24H [facility] Rx#: [id number] cefTRIAXone 1 gm In 50 Sodium Chloride 0.9% 50 ml @ 100 mls/hr IVPB Q12H [facility] Rx#:[id number] Oral 240 Output: Urine 180 250 Other: Voiding Method Bedside Commode Diaper Diaper # Voids 6 1 # Bowel Movements 1 - Exam GENERAL EXAM: Alert, very pleasant, 84-year-old white female, in no distress. HEENT: Head is atraumatic, normocephalic, PERRLA, EOMI, no icterus, no neck masses, no JVD, no stridor. CHEST: No chest wall deformity. Symmetrical expansion. LUNGS: Very minimal crackles at the bases no rhonchi and no wheezes. CVS: Regular rate and rhythm, normal S1 and S2, no gallops, no murmurs, no rubs ABDOMEN: Soft, nontender. No hepatosplenomegaly, normal bowel sounds, no guar ding or rigidity. EXTREMITIES: No clubbing, no edema, no cyanosis, 2+ pulses and upper and lower extremities. MUSCULOSKELETAL: Muscle strength and tone normal. SPINE: No scoliosis or deformity SKIN: No rashes CENTRAL NERVOUS SYSTEM: Alert oriented 3 in no gross focal neurologic deficits. Psychiatric: Normal mood affect and normal mental status examination - Labs CBC & Chem 7: 12/23/19 15:13 12/22/19 07:45 Labs: Abnormal Lab Results - Last 24 Hours (Table) 12/23/19 12/23/19 12/23/19 Range/Units 07:31 15:13 15:18 WBC 17.7 H (3.8-10.6) k/uL RBC 2.29 L (3.80-5.40) m/uL Hgb 8.2 L D (11.4-16.0) gm/dL Hct 25.0 L (34.0-46.0) % MCV 108.8 H (80.0-100.0) fL MCH 35.9 H (25.0-35.0) pg Macrocytosis Marked A APTT 65.0 H (22.0-30.0) sec POC Glucose (mg/dL) 177 H (75-99) mg/dL Microbiology - Last 24 Hours (Table) 12/16/19 Unknown Blood Culture - Final Blood No Growth after 144 hours Assessment and Plan Assessment: 1. Non-ST elevated myocardial infarction, patient is status post percutaneous transluminal angioplasty and multiple stent placement, suspect some component of systolic congestive heart failure. #2. Multivessel coronary artery disease, was determined to be too high risk for surgical intervention, awaiting PCI and stenting with Impala support of the circumflex and LAD coronary arteries on 12/23/2019 #3. Severe pulmonary hypertension, moderate mitral valve regurg, and moderate to severe tricuspid valve regurgitation and mildly impaired left ventricular systolic function with EF of 45-50% #4. History of hypertension #5. Hyperlipidemia #6. 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 History of macular degeneration #8. History of diverticulitis status post partial colectomy #9. Lifetime nonsmoker Recommendation: Continue to monitor in the ICU especially in the patient is requiring norepinephrine for low blood pressure this is likely secondary to systolic LV dysfunction. Consider gentle diuresis, however will review the chest x-ray before ordering any further Lasix. Resume cardiac meds as ordered by cardiology. We'll continue to monitor and follow closely in the ICU. Time with Patient: Less than 30
--- NOTE | 2019-12-23 16:29 | XR ---
EXAMINATION TYPE: XR chest 1V portable DATE OF EXAM: 12/23/2019 COMPARISON: 12/16/2019 INDICATION: Short of breath TECHNIQUE: Single frontal view of the chest is obtained. FINDINGS: The heart size is normal. The pulmonary vasculature is normal. Some mild increased lung markings are in the right perihilar region. Correlate for atelectasis or vol ume overload. There is blunting left costophrenic angle and poor visualization left diaphragm. Correlate for small left pleural effusion. IMPRESSION: 1. Mild increased right suprahilar lung markings. Follow-up is recommended. 2. Small left pleural effusion
[2019-12-23] MEDS: INSULIN ASPART (NovoLOG) 100 UNIT/ML VIAL SQ SCH ×2 (17:13→21:25)
[2019-12-23] MEDS ORDERED: FUROSEMIDE 10 MG/ML 4 ML VIAL IV STA (17:16)
[2019-12-23] MEDS: FAMOTIDINE 20 MG TAB PO SCH (17:37)
[2019-12-23] MEDS: CALCIUM CARBONATE 500 MG CHEWABLE PO SCH (17:37)
[2019-12-23 20:47] LABS: HCT 25.5 % (34.0-46.0); HGB 8.2 gm/dL (11.4-16.0); MCH 34.7 pg (25.0-35.0); MCHC 32.3 g/dL (31.0-37.0); MCV 107.5 fL (80.0-100.0); Macrocytosis Moderate; Mean Platelet Volume 7.4; Platelet Count 456 k/uL (150-450); RBC 2.37 m/uL (3.80-5.40); RDW 13.9 % (11.5-15.5); WBC 26.7 k/uL (3.8-10.6)
[2019-12-23 20:58] LABS: Glucose,Whole Blood 140 mg/dL (75-99)
[2019-12-23] MEDS: ATORVASTATIN 80 MG TAB PO SCH (21:05)
[2019-12-23] MEDS: ALPRAZolam 0.5 MG TAB PO PRN (21:25)
[2019-12-24] MEDS: NOREPINEPHRINE 4 MG in SODIUM CHLORIDE 0.9% 250 ML IV SCH (05:21)
[2019-12-24] MEDS: SODIUM CHLORIDE 0.9% 1,000 ML IV SCH (05:24)
[2019-12-24 06:44] LABS: Glucose,Whole Blood 115 mg/dL (75-99)
[2019-12-24] MEDS: INSULIN ASPART (NovoLOG) 100 UNIT/ML VIAL SQ SCH ×4 (06:46→21:21)
[2019-12-24 07:02] LABS: Basophils % (A) 0 %; Eosinophils % (A) 0 %; HCT 21.3 % (34.0-46.0); Hypochromasia Slight; Lymphocytes # (A) 2.7 k/uL (1.0-4.8); Lymphocytes % (A) 11 %; MCH 36.3 pg (25.0-35.0); MCV 110.2 fL (80.0-100.0); Macrocytosis Marked; Mean Platelet Volume 7.3; Monocytes # (A) 0.8 k/uL (0-1.0); Monocytes % (A) 4 %; Neutrophils # (A) 19.8 k/uL (1.3-7.7); Neutrophils % (A) 84 %; Platelet Count 411 k/uL (150-450); RBC 1.94 m/uL (3.80-5.40); RDW 14.9 % (11.5-15.5); WBC 23.5 k/uL (3.8-10.6)
[2019-12-24 07:20] LABS: Calcium 7.2 mg/dL (8.4-10.2); Magnesium 1.5 mg/dL (1.6-2.3); Potassium 3.7 mmol/L (3.5-5.1)
--- NOTE | 2019-12-24 07:30 | P.PN ---
Subjective Progress Note Date: 12/24/19 Principal diagnosis: Acute coronary syndrome This is an 84-year-old female patient with hypertension and dyslipidemia on multiple comorbid conditions who presented to the hospital with a chest discomfort in for acute coronary event. She underwent a heart catheterization was found to have critical complex lesion involving the distal left main coronary artery and also the take off of the LAD and left circumflex. The patient deemed to be high risk for coronary artery bypass grafting. Subsequently she underwent yesterday stenting of the left main coronary artery by Dr. Murry. The patient was seen today 12/24/2019. She is feeling better. No symptoms of chest pain or chest discomfort or shortness of breath. Both groins are soft and nontender and without any bruises. She still requires small dose of norepinephrine which we are trying to wean her from. She is on dual antiplatelet therapy along with high intensity statin along with beta annie with metoprolol. The chest x-ray was reviewed and showed small bilateral pleural effusion. Beside that the hemoglobin was drawn this morning and came in to be at 7 . We will continue to monitor the hemoglobin. The rest of the blood work is not back yet. Objective - Vital Signs Vital signs: Vital Signs Temp 98.1 F 12/24/19 04:00 Pulse 88 12/24/19 07:00 Resp 20 12/24/19 07:00 BP 142/61 12/24/19 07:00 Pulse Ox 98 12/24/19 07:00 Intake & Output 12/23/19 12/24/19 12/24/19 18:59 06:59 18:59 Intake Total 773.254 5295.370 76.796 Output Total 1425 1480 45 Balance -701.099 235.370 31.796 Weight 71.6 kg Intake: IV 705 950 75 .09 300 900 75 cefTRIAXone 1 gm In 50 Sodium Chloride 0.9% 50 ml @ 100 mls/hr IVPB Q12H [facility] Rx#:[id number] Intake, IV Titration 18.901 265.370 1.796 Amount Norepinephrine 4 mg In 18.901 265.370 1.796 Sodium Chloride 0.9% 250 ml @ 0.05 MCG/KG/MIN 13. 468 mls/hr IV .[id number] [facility] Rx#:[id number] Oral 500 Output: Urine 1425 1480 45 Other: Voiding Method Bedpan Indwelling Catheter # Voids 1 # Bowel Movements 1 - Constitutional General appearance: Present: no acute distress - Respiratory Respiratory: bilateral: diminished - Cardiovascular Rhythm: regular Heart sounds: normal: S1, S2 - Labs CBC & Chem 7: 12/24/19 06:35 12/24/19 06:35 Labs: Abnormal Lab Results - Last 24 Hours (Table) 12/23/19 12/23/19 12/23/19 Range/Units 07:31 15:13 15:18 WBC 17.7 H (3.8-10.6) k/uL RBC 2.29 L (3.80-5.40) m/uL Hgb 8.2 L D (11.4-16.0) gm/dL Hct 25.0 L (34.0-46.0) % MCV 108.8 H (80.0-100.0) fL MCH 35.9 H (25.0-35.0) pg Plt Count (150-450) k/uL Neutrophils # (1.3-7.7) k/uL Macrocytosis Marked A APTT 65.0 H (22.0-30.0) sec Sodium (137-145) mmol/L BUN (7-17) mg/dL Glucose (74-99) mg/dL POC Glucose (mg/dL) 177 H (75-99) mg/dL Calcium (8.4-10.2) mg/dL Magnesium (1.6-2.3) mg/dL 12/23/19 12/23/19 12/24/19 Range/Units 20:29 20:57 06:35 WBC 26.7 H 23.5 H (3.8-10.6) k/uL RBC 2.37 L 1.94 L (3.80-5.40) m/uL Hgb 8.2 L 7.0 L (11.4-16.0) gm/dL Hct 25.5 L 21.3 L (34.0-46.0) % MCV 107.5 H 110.2 H (80.0-100.0) fL MCH 36.3 H (25.0-35.0) pg Plt Count 456 H (150-450) k/uL Neutrophils # 19.8 H (1.3-7.7) k/uL Macrocytosis Marked A APTT (22.0-30.0) sec Sodium (137-145) mmol/L BUN (7-17) mg/dL Glucose (74-99) mg/dL POC Glucose (mg/dL) 140 H (75-99) mg/dL Calcium (8.4-10.2) mg/dL Magnesium (1.6-2.3) mg/dL 12/24/19 12/24/19 Range/Units 06:35 06:43 WBC (3.8-10.6) k/uL RBC (3.80-5.40) m/uL Hgb (11.4-16.0) gm/dL Hct (34.0-46.0) % MCV (80.0-100.0) fL MCH (25.0-35.0) pg Plt Count (150-450) k/uL Neutrophils # (1.3-7.7) k/uL Macrocytosis APTT (22.0-30.0) sec Sodium 135 L (137-145) mmol/L BUN 18 H (7-17) mg/dL Glucose 112 H (74-99) mg/dL POC Glucose (mg/dL) 115 H (75-99) mg/dL Calcium 7.2 L (8.4-10.2) mg/dL Magnesium 1.5 L (1.6-2.3) mg/dL Assessment and Plan Assessment: Assessment #1 acute non-ST patient myocardial infarction #2 severe CAD and status post a stenting of unprotected left main #3 hypotension requires vasopressors was norepinephrine #4 multiple comorbid conditions Plan #1 continue dual antiplatelet therapy along with high intensity statin #2 the right wean the patient from norepinephrine #3 monitor the hemoglobin very closely and repeat the hemoglobin later on today. Transfuse is a hemoglobin drop below 7 #4 follow-up with the patient
[2019-12-24] MEDS ORDERED: Potassium Replacement Protocol 1 EACH MISC MISCELLANE PRN ×2 (07:38→15:27)
[2019-12-24] MEDS ORDERED: FUROSEMIDE 10 MG/ML 2 ML VIAL IV ONE (08:15)
[2019-12-24] MEDS: CALCIUM CARBONATE 500 MG CHEWABLE PO SCH (08:33)
[2019-12-24] MEDS: MAGNESIUM SULFATE-D5W PMX 1 GM in DEXTROSE/WATER 1 100ML.BAG IVPB SCH ×2 (08:33→11:06)
[2019-12-24] MEDS: POTASSIUM CHLORIDE ER 20 MEQ TAB.ER PO SCH ×2 (08:33→09:54)
--- NOTE | 2019-12-24 09:49 | XR ---
EXAMINATION TYPE: XR chest 1V portable DATE OF EXAM: 12/24/2019 COMPARISON: Prior chest x-ray 12/23/2019 HISTORY: Cough TECHNIQUE: Single frontal view of the chest is obtained. FINDINGS: There is bibasilar increased attenuation with obscured hemidiaphragms. Heart size is likel y stable accounting for differences in technique, rotation. There are overlying leads. Bilateral shou lder arthroplasty change is present. There is no evident pneumothorax. The aorta is dense. Interstiti um is increased, central vascularity is prominent. IMPRESSION: Correlate for congestive heart failure with basilar effusions and associated atelectasis versus edema, pneumonia not excluded.
[2019-12-24] MEDS: TICAGRELOR 90 MG TAB PO SCH ×2 (09:53→21:10)
[2019-12-24] MEDS: FAMOTIDINE 20 MG TAB PO SCH (09:53)
[2019-12-24] MEDS: VIT A,C & E-LUTEIN-MINERALS 1 EACH TAB PO SCH (09:53)
[2019-12-24] MEDS: MULTIVITAMINS, THERA 1 EACH TAB PO SCH (09:53)
[2019-12-24] MEDS: METOPROLOL TARTRATE 25 MG TAB PO SCH ×2 (10:00→21:21)
[2019-12-24] MEDS: NON FORMULARY DRUG (Vitamin B Complex [Vitamin B Complex] 1 EACH Capsule) PO SCH (11:05)
[2019-12-24] MEDS: ASPIRIN 81 MG PO SCH (11:12)
[2019-12-24 11:21] LABS: Glucose,Whole Blood 172 mg/dL (75-99)
--- NOTE | 2019-12-24 12:07 | PTCA ---
PERCUTANEOUSTRANS CORORONARY ANGIOGRAPHY DATE OF SERVICE: 12/23/2019. PROCEDURE: 1. Impella heart pump placement from left femoral approach under fluoroscopic guidance. 2. Intravascular ultrasound of left main and left anterior descending coronary artery before and after the stenting. 3. PTCA and stenting of a bifurcation left main lesion with drug-eluting stents in the left main coronary artery, ostial and proximal LAD, ostial and proximal circumflex. PERFORMED BY: Dr. Pablo Murry assisted by Dr. Alfredo Bacbock Moderate conscious sedation time was 215 minutes. Patient was administered Versed, Dilaudid, oxygen saturation. Hemodynamics and EKG were monitored closely. CLINICAL INFORMATION: Mrs. Romana Ordoñez is an 84-year-old lady with a history of hypertension, hyperlipidemia, who was admitted to the hospital a few days ago with a non-ST elevation [place] and underwent a cardiac catheterization which revealed a distal left main lesion of about 35%-40% and ostial LAD as well as ostial circumflex lesion that involved the proximal segment as well with mild to moderate calcification. She was advised. She had a non correction which she had dominant relatively disease free RCA. She was advised aortocoronary bypass surgery. After the surgeon reviewed her given her multiple comorbid conditions including age, pulmonary hypertension and previous polio myelitis with the lack of strength in the left lower extremity, she was advised to have a percutaneous intervention. I had a long discussion with the patient as well as her family, particularly her daughter, Jennifer, and explained to them the rationale, risks, benefits, and options. All patient and family were in full agreement and I then proceeded with the procedure today. PROCEDURE NOTE: Under local anesthesia and strict aseptic precautions with an ultrasound guided approach, access was obtained in the right femoral artery. After doing an angiogram with a micropuncture catheter, I noted that the puncture site was a little high. Therefore, hemostasis was secured and from the left femoral approach. Under fluoro under strict aseptic precautions and local anesthesia, a micro. Using micropuncture needle technique, access was obtained. This was in a very good location well above the bifurcation. A 6-Dutch introducer was placed. Subsequently from the left femoral approach, an 8-Dutch introducer was used to increase the size of the punctures. Two Perclose devices were used in and one was placed in the 10 o'clock and 1 and 2 o'clock position and they were both preclosed and the sutures were kept to the site. Subsequently, the 8-Dutch introducer was taken out and over a wire and a 10-Dutch introducer was used and eventually a 13-Dutch sheath was placed. Patient tolerated the procedure well. Then we turned our attention to the right femoral approach and using again ultrasound guided access, ultrasound guided access was obtained into the right femoral artery. The puncture site was excellent. An 8-Dutch introducer was placed. From the 8-Dutch introducer in the right femoral artery, a JL4 8-Dutch guide was used to cannulate the left coronary artery. Two run-through wires both of them short wires were used to cross the lesion in the LAD as well as in the circumflex. Intravascular ultrasound was performed in the left main to get accurate sizing and also into the LAD as well. Subsequently, under fluoroscopic guidance, the Impella was placed with very good recordings and a cardiac output of 2.4 L. This was a 2.5 Impella. After getting an accurate sizing of the LAD and the left main, we decided to proceed with the intervention. Over the run-through wire, a cutting balloon of 2.5 caliber 10 mm length AngioSculpt was used to pre-dilate the ostial circumflex lesion. Carefully, a 12 mm long 2.75 caliber Xience stent was deployed with the proximal end of the stent at the left main origin. However, on doing the ultrasound for this, we felt the stent was a little distal to the ostium. Therefore, an additional 8 mm stent of 3.0 caliber was deployed telescoping into this stent a little proximal to the ostium. We then used a 3.0 caliber 12 mm NC balloon to dilate the distal left main and proximal LAD. This balloon was used to crush the existing stent. We then tried to deploy a 3.5 caliber 18 mm stent into the LAD, but I had considerable difficulty because of the angulation of the LAD as it came off from the left main. After some deliberation, we used a GuideLiner to help facilitate this and this GuideLiner was advanced and positioned into the proximal portion of the LAD and we still could not advance the 18 mm long Xience stent. I then switched over to a 3.5 caliber 8 mm Xience stent and with this we were able to deploy this in the proximal LAD and another 12 mm 3.5 caliber Xience stent was used to telescope this into the previous stent. So, we now had twp stents, a 12 mm 3.5 in the left main and extending beyond the LAD and another 8 mm 3.5 stent that was telescoped distal to this one. We took the wire out of the circumflex and then tried to advance a new wire into the circumflex, but we had considerable difficulty trying to recross into the circumflex. At this point, we used a 4.0 8 mm NC balloon and then a 4.5 8 mm NC balloon. With this, we performed optimization of the proximal portion of the LAD 3.5 stent. We went up to 14 atmospheres on the 4.5 NC trek to achieve almost 4.7-4.8 dilatation. High pressure dilatation was performed involving the proximal half of the LAD and left main stented segment. After performing the proximal optimization of the LAD area with a 4.5 balloon, we were able to advance the long run-through wire back into the circumflex coronary artery. However, we had difficulty dilating the circumflex. We started out with a 1.2 caliber mini trek balloon and with this we were able to dilate the struts of the circumflex stent. A GuideLiner was used to facilitate this. Subsequently, a 2.0 caliber NC balloon was used to dilate the struts. We were then able to advance a 3.0 caliber 15 mm NC balloon into the circumflex with the proximal end of his balloon in the left main. We had the wire in the LAD stable at this time. This wire was kept in LAD and we advanced a 3.0 caliber 15 mm NC balloon into the LAD. Both NC balloons were placed starting from the distal 1/3 of the left main one each into the LAD and circumflex. In this position, we performed a kissing balloon inflation up to 28 seconds at 12 atmospheres. Patient developed hypotension, bradycardia and had hypotension for about 5-10 minutes, requiring Levophed to help improve the blood pressure. There was transient stunning of the myocardium with hypotension, from which she recovered. Subsequently, patient normalized hemodynamically and we were able to bring the Levophed drip down to 2.5 mcg. Patient's blood pressure was about 120 systolic. She was placed transiently on a non- rebreather mask, but at 4 L nasal cannula, her O2 saturation was 100%. She was hemodynamically stable and feeling quite good. At this point, all the wires and catheters were taken out after getting final images. We noted that distal to the stented segment and circumflex there was an area of haziness which could have been the reason for hypotension as well. I tried to advance the stent into this, but I had difficulty going through the tortuosity. We therefore decided to abandon the procedure at this point. The flow in the circumflex was excellent with a NAI-3 flow was noted with some haziness in the mid circumflex beyond the stented segment. Even the haziness towards the end of the procedure had improved and the flow was remarkably good and patient remained asymptomatic with unremarkable EKG and NAI-3 flow in all vessels. Following this, the Impella device was reduced to decrease the flow and gradually under fluoroscopic guidance, the Impella device was taken out. Subsequently, the 13-Dutch introducer was taken out and the 2 Perclose devices were used to secure excellent hemostasis. The patient had a palpable distal pulse. After securing good hemostasis of the left femoral artery, we then turned our attention to the right femoral artery where there was 8-Dutch introducer. This was taken out and Angio-Seal device used to secure hemostasis. Excellent hemostasis of both groins was achieved. Distal pulses were palpable. Patient remained hemodynamically stable, free of chest pain with a normal EKG and good flow was noted all 3 vessels. She was then sent to the ICU in a stable condition. The details of the procedure, findings were discussed in great detail with the patient's family members, specifically and daughter. I expect patient will be in the hospital for at least another 48 hours. Excellent angiographic result without complication was achieved and good hemostasis of both femoral arteries was achieved. MMODL / IJN: [id number] /
--- NOTE | 2019-12-24 13:00 | ECHOF ---
Referral Reason:assess lvf MEASUREMENTS -------- HEIGHT: 149.9 cm WEIGHT: 71.2 kg BP: 142/61 RAP: 5.00 mmHg RVSP: 34.88 mmHg FINDINGS -------- Sinus rhythm. Limited Study Overall left ventricular systolic function is mild-moderately impaired with, an EF between 40 - 45 %. There is mild aortic regurgitation. Mild mitral regurgitation is present. Wzkc-gi-efehtsre tricuspid regurgitation present. There is mild pulmonary hypertension. The right ventricular systolic pressure, as measured by Doppler, is 34.88mmHg. Trace/mild (physiologic) pulmonic regurgitation. Echo free space indicative of a pericardial fat pad. Small Pleural Effusion. CONCLUSIONS -------- 1. Overall left ventricular systolic function is mild-moderately impaired with, an EF between 40 - 45 %. 2. There is mild aortic regurgitation. 3. Mild mitral regurgitation is present. 4. Nevl-rd-bijlvquc tricuspid regurgitation present. 5. There is mild pulmonary hypertension. 6. The right ventricular systolic pressure, as measured by Doppler, is 34.88mmHg. 7. Trace/mild (physiologic) pulmonic regurgitation. 8. Echo free space indicative of a pericardial fat pad. 9. Small Pleural Effusion. WAREHOUSE ADMINISTRATOR: Felicia Spence RDCS
--- NOTE | 2019-12-24 13:25 | P.PN ---
Subjective Progress Note Date: 12/24/19 HISTORY OF PRESENT ILLNESS This is an 84-year-old female one of Dr. Pacheco and Dr. 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 Patient states that yesterday she had sudden onset of increased weakness with significant heaviness in her arm. She denied having any chest pain or shortness of breath. No heaviness in her chest. Patient came into [facility] emergency center for evaluation. EKG with normal sinus rhythm with no acute ST changes. Temperature 99.9, heart rate 77, blood pressure 144/79. WBC 15.8, hemoglobin 11.8. Urinalysis was turbid, nitrite positive, blood moderate, leukoesterase large, squamous cell 16, bacteria many. Total bilirubin 1.1, AST 73, ALT 53, alk phos is 144. Troponin 0.566, 1.840, 1.550. Triglycerides 86, cholesterol 109, LDL 48, HDL 44. CAT scan of the brain revealed cerebral atrophy. No acute intracranial abnormality. Echocardiogram reveals EF of 45- 50% with moderate concentric left hypertrophy, LA severely dilated, mild aortic regurgitation, moderate mitral regurgitation, moderate to severe tricuspid regurgitation, severe pulmonary hypertension. Chest x-ray reveals no acute cardiopulmonary disease. Patient was admitted to the cardio stepdown unit and consult with cardiology requested. 12/17: Cardiology is following and plan for heart catheterization on Saturday. Patient is under treatment for acute UTI and urine culture showing gram-negative bacilli. Patient denies having any chest pain or shortness of breath. No lightheadedness or dizziness. She has been afebrile, heart rate 83, blood pressure 156/75, pulse ox 97% on room air. Repeat blood work reveals WBC 9.3, hemoglobin 10.9. CO2 19, creatinine 0.65. 12/18: Patient is resting up in bed with family at bedside. Patient denies any chest pain or difficulty breathing nausea or vomiting. Patient has been ambulatory in her room without any difficulties. Patient is scheduled for heart cath today. Patient is anxious to go home. Patient denies any dysuria or frequency. 12/19: Patient was found to have multivessel coronary artery disease with moderate mitral valve regurgitation and [id number] tricuspid valve regurgitation and seen and evaluated for myocardial revascularization surgery. Patient is considered to be very high risk for surgery due to friability and other comorbidities trans-esophageal echocardiogram will be obtained to make further consideration for surgery. Patient is on sitting up in chair in no acute distress. Patient denies any chest pain at this time she is able to ambulate to the bathroom without any difficulties. Patient has been afebrile. Pulse rate 98, respirations 18, blood pressure 1 4674 and pulse ox 94% on room air. Hemoglobin 11.2, potassium 3.6, BUN 11, creatinine 0.67 12/20: Patient underwent PATRIZIA today which revealed mild to moderate central mitral regurgitation. Normal LV systolic function. Patient has been seen by cardiothoracic surgery with plan for CABG tentatively scheduled for Saturday. Patient has been afebrile, heart rate 80, blood pressure 144/87, pulse ox 90% on 4 L nasal cannula. Repeat blood work ordered for tomorrow. 12/21: CTS and cardiology have determined that patient is too high risk for open heart surgery. Patient is scheduled tomorrow to undergo PCI with Impella assist by Dr. Hugo Murry. Blood pressure 140/70 with a heart rate of 70, 100% on 4 L of oxygen. WBC 14.3, hemoglobin 11.3, platelet count 459. Sodium 138, potassium 4.5, BUN 11, creatinine 0.6. patient's and family are at bedside. All questions have been answered. 12/22: Patient denies having any chest pain or shortness of breath. She states in general she is feeling well. She is scheduled for PCI today with Dr. Murry. Patient has been afebrile, heart rate 68, blood pressure 156/93, pulse ox 93% on room air. 12/23: Yesterday, patient underwent an [place] heart pump placement, PTCA and stenting of a bifurcation left main lesion with drug-eluting stents in the left main coronary artery, ostial and proximal LAD, ostial and proximal circumflex. Patient was subsequently transferred to the intensive care unit. She has been on levo fed. Bravo catheter is in place with marginal urine output. Repeat hemoglobin is 7. Dr. Davila is ordered 1 unit of packed RBC transfusion for today. Plan is to wean off vasopressor today. Repeat limited echocardiogram r eveals EF of 40-45% with mild aortic regurgitation, mild mitral regurgitation, mild to moderate tricuspid regurgitation, mild pulmonary hypertension. Repeat chest x-ray reveals correlate for congestive heart failure with basilar effusions and associated atelectasis versus edema, pneumonia not excluded. The patient denies any new complaints. She denies having any chest pain or shortness of breath. REVIEW OF SYSTEMS Constitutional: No fever, no chills, no night sweats. No weight change. No weakness, fatigue or lethargy. No daytime sleepiness. EENT: No headache. No blurred vision or double vision, no loss of vision. No dizziness. Lungs: No shortness of breath, cough, no sputum production. No wheezing. Cardiovascular: No chest pain, no lower extremity edema. No palpitations. No paroxysmal nocturnal dyspnea. No orthopnea. No lightheadedness or dizziness. No syncopal episodes. Abdominal: No abdominal pain. No nausea, vomiting. No diarrhea. No const ipation. No bloody or tarry stools.. No loss of appetite. Genitourinary: No dysuria, increased frequency, urgency. No urinary retention. Musculoskeletal: No myalgias. No muscle weakness, no gait dysfunction, no frequent falls. No back pain. No neck pain. Integumentary: No wounds, no lesions. No rash or pruritus. No unusual bruising. No change in hair or nails. Neurologic: No aphasia. No facial droop. No change in mentation. No headache. No paralysis. No paresthesia. Psychiatric: No depression. No anxiety. Endocrine: No abnormal blood sugars. No weight change. No excessive sweating or thirst. No cold intolerance. PHYSICAL EXAMINATION Gen: This is an 84-year-old female. Patient is sitting in chair in the ICU. She appears to be in no acute distress. HEENT: Head is atraumatic, normocephalic. Pupils equal, round. Sclerae is anicteric. NECK: Supple. No JVD. No lymphadenopathy. No thyromegaly. LUNGS: Clear to auscultation. No wheezes or rhonchi. No intercostal retractions. HEART: Regular rate and rhythm. Systolic murmur. ABDOMEN: Soft. Bowel sounds are present. No masses. No tenderness. EXTREMITIES: No pedal edema. No calf tenderness. Dorsalis pedis +2 bilaterally. NEUROLOGICAL: Patient is awake, alert and oriented x3. Cranial nerves 2 through 12 are grossly intact. ASSESSMENT AND PLAN 1. Non-ST elevated myocardial infarction with multivessel coronary artery disease status post PTCA. Cardiology consult appreciated. Echocardiogram as above. Continue aspirin 81 mg daily, atorvastatin, Lopressor, lasix 20 mg IVP q12 hr. PATRIZIA and heart catheterization report as above. 2. Hypertension and hypertensive cardiovascular disease. Patient is currently hypotensive and on vasopressor to be weaned off today. 3. Hyperlipidemia. Continue Lipitor 80 mg. 4. AMD. Continue PreserVision 1 tablet once every day. 5. History of polio syndrome with left leg weakness. 6. History of diverticulitis and partial colectomy, stable. 7. DVT prophylaxis. 8. GI prophylaxis. Continue Pepcid 20 mg PO every 12 hours. 9. E. coli acute urinary tract infection. Patient is on ceftriaxone and completed course of antibiotics. Discharge plan: home with home care most likely. Impression and plan of care have been directed as dictated by the signing physician. Ann Dunne nurse practitioner acting as scribe for signing physician. Objective - Vital Signs Vital signs: Vital Signs Temp 98.1 F 12/24/19 04:00 Pulse 88 12/24/19 07:00 Resp 20 12/24/19 07:00 BP 142/61 12/24/19 07:00 Pulse Ox 98 12/24/19 07:00 Intake & Output 12/23/19 12/24/19 12/24/19 18:59 06:59 18:59 Intake Total 724.146 4453.370 76.796 Output Total 1425 1480 45 Balance -701.099 235.370 31.796 Weight 71.6 kg Intake: IV 705 950 75 .09 300 900 75 cefTRIAXone 1 gm In 50 Sodium Chloride 0.9% 50 ml @ 100 mls/hr IVPB Q12H [facility] Rx#:[id number] Intake, IV Titration 18.901 265.370 1.796 Amount Norepinephrine 4 mg In 18.901 265.370 1.796 Sodium Chloride 0.9% 250 ml @ 0.05 MCG/KG/MIN 13. 468 mls/hr IV .[id number] [facility] Rx#:[id number] Oral 500 Output: Urine 1425 1480 45 Other: Voiding Method Bedpan Indwelling Catheter # Voids 1 # Bowel Movements 1 - Labs CBC & Chem 7: 12/24/19 06:35 12/24/19 06:35 Labs: Abnormal Lab Results - Last 24 Hours (Table) 12/23/19 12/23/19 12/23/19 Range/Units 15:13 15:18 20:29 WBC 17.7 H 26.7 H (3.8-10.6) k/uL RBC 2.29 L 2.37 L (3.80-5.40) m/uL Hgb 8.2 L D 8.2 L (11.4-16.0) gm/dL Hct 25.0 L 25.5 L (34.0-46.0) % MCV 108.8 H 107.5 H (80.0-100.0) fL MCH 35.9 H (25.0-35.0) pg Plt Count 456 H (150-450) k/uL Neutrophils # (1.3-7.7) k/uL Macrocytosis Marked A Sodium (137-145) mmol/L BUN (7-17) mg/dL Glucose (74-99) mg/dL POC Glucose (mg/dL) 177 H (75-99) mg/dL Calcium (8.4-10.2) mg/dL Magnesium (1.6-2.3) mg/dL 12/23/19 12/24/19 12/24/19 Range/Units 20:57 06:35 06:35 WBC 23.5 H (3.8-10.6) k/uL RBC 1.94 L (3.80-5.40) m/uL Hgb 7.0 L (11.4-16.0) gm/dL Hct 21.3 L (34.0-46.0) % MCV 110.2 H (80.0-100.0) fL MCH 36.3 H (25.0-35.0) pg Plt Count (150-450) k/uL Neutrophils # 19.8 H (1.3-7.7) k/uL Macrocytosis Marked A Sodium 135 L (137-145) mmol/L BUN 18 H (7-17) mg/dL Glucose 112 H (74-99) mg/dL POC Glucose (mg/dL) 140 H (75-99) mg/dL Calcium 7.2 L (8.4-10.2) mg/dL Magnesium 1.5 L (1.6-2.3) mg/dL 12/24/19 Range/Units 06:43 WBC (3.8-10.6) k/uL RBC (3.80-5.40) m/uL Hgb (11.4-16.0) gm/dL Hct (34.0-46.0) % MCV (80.0-100.0) fL MCH (25.0-35.0) pg Plt Count (150-450) k/uL Neutrophils # (1.3-7.7) k/uL Macrocytosis Sodium (137-145) mmol/L BUN (7-17) mg/dL Glucose (74-99) mg/dL POC Glucose (mg/dL) 115 H (75-99) mg/dL Calcium (8.4-10.2) mg/dL Magnesium (1.6-2.3) mg/dL
--- NOTE | 2019-12-24 13:42 | P.PN ---
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 Patient presented to the emergency depa rtment on 12/16/2019 primarily with symptoms weakness, fatigue, with significant heaviness in her arm. Patient denied any chest pain or shortness of breath. EKG was negative for any acute ST changes, and showed normal sinus rhythm, she had elevated troponins of 0.566, 1.840, and 1.550. Echocardiogram showed EF of 45-50% with moderately severe concentric left hypertrophy, severely dilated left atrium, mild aortic regurgitation, moderate mitral regurgitation moderate to severe tricuspid regurgitation and severe pulmonary hypertension. Cardiology ruled the patient in for non-ST elevated myocardial infarction. Patient was also found to have acute urinary tract infection for which she was placed on antibiotics, urine cultures positive for E. coli. Patient had heart catheterization on 12/20/2019 and was found to have severe ostial LAD and circumflex coronary artery stenosis with borderline distal left main stenosis. Patient was referred to CT surgery for possibility of surgical revasc ularization. Patient however was determined to be at very high risk for surgery due to frailty and other comorbidities, and the plan currently is to proceed with PCI and stenting of the LAD and circumflex with Impella support possibly tomorrow on 12/23/2019. CT chest without contrast showed small bilateral pleural effusions and associate compressive atelectasis without suspicious focal consolidation. We were asked to see in consultation for possible surgery, and pulmonary/critical care management following surgery. Patient was reevaluated today on 12/23/19, a shunt underwent percutaneous t ransluminal coronary angioplasty with coronary drug eluting stents placement today. Postoperatively the patient was transferred back to the ICU, she was hypotensive requiring levo fed presently at 0.04 mcg/kg/m, patient is complaining of a bit of shortness of breath and productive cough. No fever no chills no hemoptysis no chest pain. 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 CBC today showed WBC of 17.7 hemoglobin is 8.2 her PTT was therapeutic earlier at 65. Chest x-ray is pending. The patient is seen today 12/24/2019 in follow-up in the intensive care unit. She is currently sitting up in a chair at the bedside. Awake and alert in no acute distress. No chest discomfort. No worsening shortness of breath cough or congestion. Maintaining O2 saturations in the 90s on 2 L/m per nasal cannula. She's been afebrile. Hemodynamically stable. Off pressors. She is anemic with a hemoglobin of 7.0. She is receiving 1 unit of packed red blood cells today. Urine culture was positive for E. coli. Completed course of ceftriaxone. Blood cultures revealed no growth. White count 23.5. Sodium 135. Potassium 3.7. Creatinine 0.74. Chest x-ray reveals evidence of congestive heart failure with basilar effusions and associated atelectasis. Follow-up echocardiogram reveals mild to moderately impaired left ventricular systolic function with ejection fraction 40-45%. Objective - Vital Signs Vital signs: Vital Signs Temp 98.1 F 12/24/19 12:00 Pulse 80 12/24/19 12:00 Resp 16 12/24/19 12:10 BP 107/52 12/24/19 12:00 Pulse Ox 94 L 12/24/19 12:00 Intake & Output 12/23/19 12/24/19 12/24/19 18:59 06:59 18:59 Intake Total 329.557 8228.370 841.796 Output Total 1425 1480 155 Balance -701.099 235.370 686.796 Weight 71.6 kg Intake: IV 705 950 600 .09 300 900 300 Magnesium Sulfate-D5w Pmx 200 1 gm In Dextrose/Water 1 100ml.bag @ 100 mls/hr IVPB Q1H [facility] Rx#: [id number] cefTRIAXone 1 gm In 50 100 Sodium Chloride 0.9% 50 ml @ 100 mls/hr IVPB Q12H [facility] Rx#:[id number] Intake, IV Titration 18.901 265.370 1.796 Amount Norepinephrine 4 mg In 18.901 265.370 1.796 Sodium Chloride 0.9% 250 ml @ 0.05 MCG/KG/MIN 13. 468 mls/hr IV .[id number] [facility] Rx#:[id number] Oral 500 240 Blood Product 0 Rc As-1 Unit 0 [id number] Output: Urine 1425 1480 155 Other: Voiding Method Bedpan Indwelling Catheter Indwelling Catheter # Voids 1 # Bowel Movements 1 1 - Exam GENERAL EXAM: Alert, very pleasant, 84-year-old white female, in no distress. On 2 L nasal cannula. HEENT: Head is atraumatic, normocephalic, PERRLA, EOMI, no icterus, no neck masses, no JVD, no stridor. CHEST: No chest wall deformity. Symmetrical expansion. LUNGS: Very minimal crackles at the bases no rhonchi and no wheezes. CVS: Regular rate and rhythm, normal S1 and S2, no gallops, no murmurs, no rubs ABDOMEN: Soft, nontender. No hepatosplenomegaly, normal bowel sounds, no guarding or rigidity. EXTREMITIES: No clubbing, no edema, no cyanosis, 2+ pulses and upper and lower extremities. MUSCULOSKELETAL: Muscle strength and tone normal. SPINE: No scoliosis or deformity SKIN: No rashes CENTRAL NERVOUS SYSTEM: Alert oriented 3 in no gross focal neurologic deficits. Psychiatric: Normal mood affect and normal mental status examination - Labs CBC & Chem 7: 12/24/19 06:35 12/24/19 06:35 Labs: Abnormal Lab Results - Last 24 Hours (Table) 12/23/19 12/23/19 12/23/19 Range/Units 15:13 15:18 20:29 WBC 17.7 H 26.7 H (3.8-10.6) k/uL RBC 2.29 L 2.37 L (3.80-5.40) m/uL Hgb 8.2 L D 8.2 L (11.4-16.0) gm/dL Hct 25.0 L 25.5 L (34.0-46.0) % MCV 108.8 H 107.5 H (80.0-100.0) fL MCH 35.9 H (25.0-35.0) pg Plt Count 456 H (150-450) k/uL Neutrophils # (1.3-7.7) k/uL Macrocytosis Marked A Sodium (137-145) mmol/L BUN (7-17) mg/dL Glucose (74-99) mg/dL POC Glucose (mg/dL) 177 H (75-99) mg/dL Calcium (8.4-10.2) mg/dL Magnesium (1.6-2.3) mg/dL Crossmatch 12/23/19 12/24/19 12/24/19 Range/Units 20:57 06:35 06:35 WBC 23.5 H (3.8-10.6) k/uL RBC 1.94 L (3.80-5.40) m/uL Hgb 7.0 L (11.4-16.0) gm/dL Hct 21.3 L (34.0-46.0) % MCV 110.2 H (80.0-100.0) fL MCH 36.3 H (25.0-35.0) pg Plt Count (150-450) k/uL Neutrophils # 19.8 H (1.3-7.7) k/uL Macrocytosis Marked A Sodium 135 L (137-145) mmol/L BUN 18 H (7-17) mg/dL Glucose 112 H (74-99) mg/dL POC Glucose (mg/dL) 140 H (75-99) mg/dL Calcium 7.2 L (8.4-10.2) mg/dL Magnesium 1.5 L (1.6-2.3) mg/dL Crossmatch 12/24/19 12/24/19 12/24/19 Range/Units 06:43 08:50 11:19 WBC (3.8-10.6) k/uL RBC (3.80-5.40) m/uL Hgb (11.4-16.0) gm/dL Hct (34.0-46.0) % MCV (80.0-100.0) fL MCH (25.0-35.0) pg Plt Count (150-450) k/uL Neutrophils # (1.3-7.7) k/uL Macrocytosis Sodium (137-145) mmol/L BUN (7-17) mg/dL Glucose (74-99) mg/dL POC Glucose (mg/dL) 115 H 172 H (75-99) mg/dL Calcium (8.4-10.2) mg/dL Magnesium (1.6-2.3) mg/dL Crossmatch See Detail Assessment and Plan Assessment: #1. Non-ST elevated myocardial infarction, patient is status post percutaneous transluminal angioplasty and multiple stent placement, mild to moderately impaired left ventricular systolic function with ejection fraction 40-45% on echocardiogram today. #2. Multivessel coronary artery disease, was determined to be too high risk for surgical intervention, status post PTCA and stenting with [place] support of the circumflex and LAD coronary arteries on 12/23/2019 #3. Severe pulmonary hypertension, moderate mitral valve regurg, and moderate to severe tricuspid valve regurgitation and mildly impaired left ventricular systolic function with EF of 45-50% #4. History of hypertension #5. Hyperlipidemia #6. 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 History of macular degeneration #8. History of diverticulitis status post partial colectomy #9. Lifetime nonsmoker Recommendation: The patient was seen and evaluated by Dr. Medina Chest x-ray and labs reviewed Receiving 1 unit of packed red blood cells this admission Limited echocardiogram reveals mild to moderately impaired LV function with ejection fraction 40-45% Remains on Brillinta We'll continue to follow and make further recommendations based on her clinical status I, the cosigning physician, performed a history & physical examination of the patient. Lungs sounds with crackles in the bilateral posterior bases. Maintaining good O2 saturations in the 90s on 2 L/m per nasal canula. I discussed the assessment and plan of care with my nurse practitioner, Regla Woodward. I attest to the above note as dictated by her.
[2019-12-24 15:17] LABS: Magnesium 2.1 mg/dL (1.6-2.3); Potassium 3.6 mmol/L (3.5-5.1)
[2019-12-24 15:33] LABS: Basophils % (A) 0 %; Eosinophils # (A) 0.1 k/uL (0-0.7); Eosinophils % (A) 0 %; HCT 26.2 % (34.0-46.0); Lymphocytes % (A) 8 %; MCH 34.5 pg (25.0-35.0); MCHC 32.7 g/dL (31.0-37.0); MCV 105.6 fL (80.0-100.0); Macrocytosis Moderate; Mean Platelet Volume 7.8; Monocytes # (A) 1.1 k/uL (0-1.0); Monocytes % (A) 4 %; Neutrophils # (A) 21.8 k/uL (1.3-7.7); Neutrophils % (A) 87 %; Platelet Count 389 k/uL (150-450); RBC 2.48 m/uL (3.80-5.40); RDW 15.9 % (11.5-15.5); WBC 25.2 k/uL (3.8-10.6)
[2019-12-24 15:40] LABS: HGB 8.6 gm/dL (11.4-16.0)
[2019-12-24] MEDS ORDERED: POTASSIUM CHLORIDE ER 20 MEQ TAB.ER PO SCH (16:00)
[2019-12-24 16:44] LABS: Glucose,Whole Blood 92 mg/dL (75-99)
[2019-12-24] MEDS ORDERED: SODIUM CHLORIDE 0.9% 1,000 ML IV SCH (19:38)
[2019-12-24 20:50] LABS: Glucose,Whole Blood 105 mg/dL (75-99)
[2019-12-24] MEDS: ATORVASTATIN 80 MG TAB PO SCH (21:10)
[2019-12-24] MEDS: ALPRAZolam 0.5 MG TAB PO PRN (21:10)
[2019-12-24 21:39] LABS: Anisocytosis Slight; Basophils % (A) 0 %; Eosinophils # (A) 0.2 k/uL (0-0.7); Eosinophils % (A) 1 %; HCT 26.1 % (34.0-46.0); HGB 8.7 gm/dL (11.4-16.0); Lymphocytes # (A) 2.8 k/uL (1.0-4.8); Lymphocytes % (A) 13 %; MCH 34.6 pg (25.0-35.0); MCHC 33.3 g/dL (31.0-37.0); MCV 104.1 fL (80.0-100.0); Macrocytosis Moderate; Mean Platelet Volume 7.3; Monocytes # (A) 0.9 k/uL (0-1.0); Monocytes % (A) 4 %; Neutrophils # (A) 17.1 k/uL (1.3-7.7); Neutrophils % (A) 80 %; Platelet Count 409 k/uL (150-450); RBC 2.51 m/uL (3.80-5.40); RDW 16.2 % (11.5-15.5); WBC 21.3 k/uL (3.8-10.6)
[2019-12-25 06:27] LABS: Anisocytosis Slight; Basophils % (A) 0 %; Eosinophils # (A) 0.4 k/uL (0-0.7); Eosinophils % (A) 3 %; HCT 24.2 % (34.0-46.0); Lymphocytes # (A) 2.3 k/uL (1.0-4.8); Lymphocytes % (A) 16 %; MCH 34.3 pg (25.0-35.0); MCHC 33.1 g/dL (31.0-37.0); MCV 103.7 fL (80.0-100.0); Macrocytosis Moderate; Mean Platelet Volume 7.2; Monocytes # (A) 0.7 k/uL (0-1.0); Monocytes % (A) 4 %; Neutrophils # (A) 11.2 k/uL (1.3-7.7); Neutrophils % (A) 76 %; Platelet Count 342 k/uL (150-450); RBC 2.34 m/uL (3.80-5.40); RDW 16.7 % (11.5-15.5); WBC 14.8 k/uL (3.8-10.6)
[2019-12-25 06:37] LABS: Albumin 2.2 g/dL (3.5-5.0); Calcium 7.4 mg/dL (8.4-10.2); Magnesium 2.1 mg/dL (1.6-2.3); Potassium 4.3 mmol/L (3.5-5.1); Total Bilirubin 0.4 mg/dL (0.2-1.3); Total Protein 4.9 g/dL (6.3-8.2)
[2019-12-25 06:54] LABS: Glucose,Whole Blood 79 mg/dL (75-99)
--- NOTE | 2019-12-25 07:37 | P.PN ---
Subjective Progress Note Date: 12/25/19 Principal diagnosis: Acute coronary syndrome This is an 84-year-old female patient with hypertension and dyslipidemia on multiple comorbid conditions who presented to the hospital with a chest discomfort in for acute coronary event. She underwent a heart catheterization was found to have critical complex lesion involving the distal left main coronary artery and also the take off of the LAD and left circumflex. The patient deemed to be high risk for coronary artery bypass grafting. Subsequently she underwent yesterday stenting of the left main coronary artery by Dr. Murry. The patient was seen today 12/25/2019. She is feeling better. She denies any chest pain or chest discomfort. The shortness of breath is better. Hemodynamically she is stable was marginally low blood pressure. I'm going to decrease the dose of metoprolol to 12.5 mg by mouth twice a day. The hemoglobin this morning is 8.0 the chest x-ray showed small bilateral pleural effusion. I'm going to start the patient was small dose of Aldactone at 12.5 mg by mouth daily. Beside that continue dual antiplatelet therapy along with high intensity statin. We'll continue to monitor the hemoglobin and monitor the kidney function. Objective - Vital Signs Vital signs: Vital Signs Temp 97.4 F L 12/25/19 04:00 Pulse 76 12/25/19 07:00 Resp 14 12/25/19 07:00 BP 121/60 12/25/19 07:00 Pulse Ox 92 L 12/25/19 07:00 Intake & Output 12/24/19 12/25/19 12/25/19 18:59 06:59 18:59 Intake Total 1621.796 500 50 Output Total 685 770 Balance 936.796 -270 50 Weight 71.3 kg Intake: IV 600 500 50 .09 300 0.9 NaCl- 500 50 Magnesium Sulfate-D5w Pmx 200 1 gm In Dextrose/Water 1 100ml.bag @ 100 mls/hr IVPB Q1H [facility] Rx#: [id number] cefTRIAXone 1 gm In 100 Sodium Chloride 0.9% 50 ml @ 100 mls/hr IVPB Q12H [facility] Rx#:[id number] Intake, IV Titration 1.796 Amount Norepinephrine 4 mg In 1.796 Sodium Chloride 0.9% 250 ml @ 0.05 MCG/KG/MIN 13. 468 mls/hr IV .[id number] [facility] Rx#:[id number] Oral 710 Blood Product 310 Rc As-1 Unit 310 [id number] Output: Urine 685 770 Other: Voiding Method Indwelling Catheter Indwelling Catheter # Voids 75 # Bowel Movements 1 - Constitutional General appearance: Present: no acute distress - Respiratory Respiratory: bilateral: diminished - Cardiovascular Rhythm: regular Heart sounds: normal: S1, S2 - Labs CBC & Chem 7: 12/25/19 06:00 12/25/19 06:00 Labs: Abnormal Lab Results - Last 24 Hours (Table) 12/24/19 12/24/19 12/24/19 Range/Units 08:50 11:19 14:41 WBC 25.2 H (3.8-10.6) k/uL RBC 2.48 L (3.80-5.40) m/uL Hgb 8.6 L D (11.4-16.0) gm/dL Hct 26.2 L (34.0-46.0) % MCV 105.6 H (80.0-100.0) fL RDW 15.9 H (11.5-15.5) % Neutrophils # 21.8 H (1.3-7.7) k/uL Monocytes # 1.1 H (0-1.0) k/uL Sodium (137-145) mmol/L Chloride (98-107) mmol/L POC Glucose (mg/dL) 172 H (75-99) mg/dL Calcium (8.4-10.2) mg/dL AST (14-36) U/L ALT (4-34) U/L Total Protein (6.3-8.2) g/dL Albumin (3.5-5.0) g/dL Crossmatch See Detail 12/24/19 12/24/19 12/25/19 Range/Units 20:49 21:07 06:00 WBC 21.3 H 14.8 H (3.8-10.6) k/uL RBC 2.51 L 2.34 L (3.80-5.40) m/uL Hgb 8.7 L 8.0 L (11.4-16.0) gm/dL Hct 26.1 L 24.2 L (34.0-46.0) % MCV 104.1 H 103.7 H (80.0-100.0) fL RDW 16.2 H 16.7 H (11.5-15.5) % Neutrophils # 17.1 H 11.2 H (1.3-7.7) k/uL Monocytes # (0-1.0) k/uL Sodium (137-145) mmol/L Chloride (98-107) mmol/L POC Glucose (mg/dL) 105 H (75-99) mg/dL Calcium (8.4-10.2) mg/dL AST (14-36) U/L ALT (4-34) U/L Total Protein (6.3-8.2) g/dL Albumin (3.5-5.0) g/dL Crossmatch 12/25/19 Range/Units 06:00 WBC (3.8-10.6) k/uL RBC (3.80-5.40) m/uL Hgb (11.4-16.0) gm/dL Hct (34.0-46.0) % MCV (80.0-100.0) fL RDW (11.5-15.5) % Neutrophils # (1.3-7.7) k/uL Monocytes # (0-1.0) k/uL Sodium 136 L (137-145) mmol/L Chloride 108 H (98-107) mmol/L POC Glucose (mg/dL) (75-99) mg/dL Calcium 7.4 L (8.4-10.2) mg/dL AST 61 H (14-36) U/L ALT 75 H (4-34) U/L Total Protein 4.9 L (6.3-8.2) g/dL Albumin 2.2 L (3.5-5.0) g/dL Crossmatch Assessment and Plan Assessment: Assessment #1 acute non-ST patient myocardial infarction #2 severe CAD and status post a stenting of unprotected left main #3 hypotension requires vasopressors was norepinephrine #4 multiple comorbid conditions Plan #1 continue dual antiplatelet therapy along with high intensity statin #2 decrease the dose of metoprolol #3 add small dose of Aldactone #4 continue monitor the hemoglobin and the kidney function #5 follow-up with the patient
[2019-12-25] MEDS: INSULIN ASPART (NovoLOG) 100 UNIT/ML VIAL SQ SCH ×4 (07:48→20:06)
[2019-12-25] MEDS ORDERED: FUROSEMIDE 10 MG/ML 2 ML VIAL IV ONE (08:07)
[2019-12-25] MEDS: FAMOTIDINE 20 MG TAB PO SCH (09:12)
[2019-12-25] MEDS: ASPIRIN 81 MG PO SCH (09:12)
[2019-12-25] MEDS: SPIRONOLACTONE 25 MG TAB PO SCH (09:12)
[2019-12-25] MEDS: METOPROLOL TARTRATE 12.5 MG TAB PO SCH ×2 (09:12→20:08)
[2019-12-25] MEDS: TICAGRELOR 90 MG TAB PO SCH ×2 (09:12→20:08)
[2019-12-25] MEDS: MULTIVITAMINS, THERA 1 EACH TAB PO SCH (09:12)
[2019-12-25] MEDS: CALCIUM CARBONATE 500 MG CHEWABLE PO SCH (09:12)
[2019-12-25] MEDS: NON FORMULARY DRUG (Vitamin B Complex [Vitamin B Complex] 1 EACH Capsule) PO SCH (09:13)
[2019-12-25] MEDS: VIT A,C & E-LUTEIN-MINERALS 1 EACH TAB PO SCH (09:13)
--- NOTE | 2019-12-25 10:21 | XR ---
EXAMINATION TYPE: XR chest 1V portable DATE OF EXAM: 12/25/2019 CLINICAL HISTORY: Cough TECHNIQUE: Portable semiupright view of the chest COMPARISON: 12/24/2019 chest radiograph FINDINGS: Cardiomegaly, pulmonary vascular congestion, and bilateral kwgrw-[id number] pleural effus ions not significantly changed versus 12/24/2019. No pneumothorax. Bilateral shoulder arthroplasties. IMPRESSION: Cardiomegaly, pulmonary vascular congestion, and bilateral pleural effusions not signific antly changed versus 12/24/2019
[2019-12-25 11:45] LABS: Glucose,Whole Blood 91 mg/dL (75-99)
--- NOTE | 2019-12-25 11:52 | P.PN ---
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 Patient presented to the emergency department on 12/16/2019 primarily with symptoms weakness, fatigue, with significant heaviness in her arm. Patient denied any chest pain or shortness of breath. EKG was negative for any acute ST changes, and showed normal sinus rhythm, she had elevated troponins of 0.566, 1.840, and 1.550. Echocardiogram showed EF of 45-50% with moderately severe concentric left hypertrophy, severely dilated left atrium, mild aortic regurgitation, moderate mitral regurgitation moderate to severe tricuspid regurgitation and severe pulmonary hypertension. Cardiology ruled the patient in for non-ST elevated myocardial infarction. Patient was also found to have acute urinary tract infection for which she was placed on antibiotics, urine cultures positive for E. coli. Patient had heart catheterization on 12/20/2019 and was found to have severe ostial LAD and circumflex coronary artery stenosis with borderline distal left main stenosis. Patient was referred to CT surgery for possibility of surgical revascularizat ion. Patient however was determined to be at very high risk for surgery due to frailty and other comorbidities, and the plan currently is to proceed with PCI and stenting of the LAD and circumflex with Impella support possibly tomorrow on 12/23/2019. CT chest without contrast showed small bilateral pleural effusions and associate compressive atelectasis without suspicious focal consolidation. W e were asked to see in consultation for possible surgery, and pulmonary/critical care management following surgery. Patient was reevaluated today on 12/23/19, a shunt underwent percutaneous transluminal coronary angioplasty with coronary drug eluting stents placement today. Postoperatively the patient was transferred back to the ICU, she was hypotensive requiring levo fed presently at 0.04 mcg/kg/m, patient is complaining of a bit of shortness of breath and productive cough. No fever no chills no hemoptysis no chest pain. 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 CBC today showed WBC of 17.7 hemoglobin is 8.2 her PTT was therapeutic earlier at 65. Chest x-ray is pending. Patient was reevaluated today on 12/25/19, feels great, denies any cough wheezing shortness of breath denies any chest pain. Chest x-ray showed mild CHF, patient received a dose of Lasix earlier today, and she is relatively asymptomatic. She is hemodynamically stable, she is on multiple cardiac meds, hemoglobin this morn ing is 8. Patient was placed on Aldactone 12.5 mg daily by cardiology. And she remains on dual antiplatelet therapy along with statin. Objective - Vital Signs Vital signs: Vital Signs Temp 98 F 12/25/19 08:00 Pulse 81 12/25/19 08:00 Resp 18 12/25/19 08:00 BP 135/49 12/25/19 08:00 Pulse Ox 90 L 12/25/19 08:00 Intake & Output 12/24/19 12/25/19 12/25/19 18:59 06:59 18:59 Intake Total 1621.796 500 350 Output Total 183 175 1710 Balance 936.796 -270 -675 Weight 71.3 kg Intake: IV 600 500 150 .09 300 0.9 NaCl- 500 150 Magnesium Sulfate-D5w Pmx 200 1 gm In Dextrose/Water 1 100ml.bag @ 100 mls/hr IVPB Q1H [facility] Rx#: [id number] cefTRIAXone 1 gm In 100 Sodium Chloride 0.9% 50 ml @ 100 mls/hr IVPB Q12H [facility] Rx#:[id number] Intake, IV Titration 1.796 Amount Norepinephrine 4 mg In 1.796 Sodium Chloride 0.9% 250 ml @ 0.05 MCG/KG/MIN 13. 468 mls/hr IV .[id number] [facility] Rx#:[id number] Oral 710 200 Blood Product 310 Rc As-1 Unit 310 [id number] Output: Urine 338 640 1231 Other: Voiding Method Indwelling Catheter Indwelling Catheter Indwelling Catheter # Voids 75 # Bowel Movements 1 - Exam GENERAL EXAM: Alert, very pleasant, 84-year-old white female, in no distress. Presently on 2 L nasal cannula. Her IV fluid at 50 mL per hour and I cut it down to KVO HEENT: Head is atraumatic, normocephalic, PERRLA, EOMI, no icterus, no neck masses, no JVD, no stridor. CHEST: No chest wall deformity. Symmetrical expansion. LUNGS: Diminished breath sounds at the bases, no crackles or rhonchi or wheezes. CVS: Regular rate and rhythm, normal S1 and S2, no gallops, no murmurs, no rubs ABDOMEN: Soft, nontender. No hepatosplenomegaly, normal bowel sounds, no guardi ng or rigidity. EXTREMITIES: No clubbing, trace of bipedal edema, no cyanosis, 2+ pulses and upper and lower extremities. MUSCULOSKELETAL: Muscle strength and tone normal. SPINE: No scoliosis or deformity SKIN: No rashes CENTRAL NERVOUS SYSTEM: Alert oriented 3 in no gross focal neurologic deficits. Psychiatric: Normal mood affect and normal mental status examination - Labs CBC & Chem 7: 12/25/19 06:00 12/25/19 06:00 Labs: Abnormal Lab Results - Last 24 Hours (Table) 12/24/19 12/24/19 12/24/19 Range/Units 08:50 14:41 20:49 WBC 25.2 H (3.8-10.6) k/uL RBC 2.48 L (3.80-5.40) m/uL Hgb 8.6 L D (11.4-16.0) gm/dL Hct 26.2 L (34.0-46.0) % MCV 105.6 H (80.0-100.0) fL RDW 15.9 H (11.5-15.5) % Neutrophils # 21.8 H (1.3-7.7) k/uL Monocytes # 1.1 H (0-1.0) k/uL Sodium (137-145) mmol/L Chloride (98-107) mmol/L POC Glucose (mg/dL) 105 H (75-99) mg/dL Calcium (8.4-10.2) mg/dL AST (14-36) U/L ALT (4-34) U/L Total Protein (6.3-8.2) g/dL Albumin (3.5-5.0) g/dL Crossmatch See Detail 12/24/19 12/25/19 12/25/19 Range/Units 21:07 06:00 06:00 WBC 21.3 H 14.8 H (3.8-10.6) k/uL RBC 2.51 L 2.34 L (3.80-5.40) m/uL Hgb 8.7 L 8.0 L (11.4-16.0) gm/dL Hct 26.1 L 24.2 L (34.0-46.0) % MCV 104.1 H 103.7 H (80.0-100.0) fL RDW 16.2 H 16.7 H (11.5-15.5) % Neutrophils # 17.1 H 11.2 H (1.3-7.7) k/uL Monocytes # (0-1.0) k/uL Sodium 136 L (137-145) mmol/L Chloride 108 H (98-107) mmol/L POC Glucose (mg/dL) (75-99) mg/dL Calcium 7.4 L (8.4-10.2) mg/dL AST 61 H (14-36) U/L ALT 75 H (4-34) U/L Total Protein 4.9 L (6.3-8.2) g/dL Albumin 2.2 L (3.5-5.0) g/dL Crossmatch Assessment and Plan Assessment: 1. Acute Non-ST elevated myocardial infarction, patient is status post percutaneous transluminal angioplasty and multiple stent placement, suspect some component of systolic congestive heart failure.Remains on diuretics #2. Multivessel coronary artery disease, was determined to be too high risk for surgical intervention, awaiting PCI and stenting with Impala support of the circumflex and LAD coronary arteries on 12/23/2019 #3. Severe pulmonary hypertension, moderate mitral valve regurg, and moderate to severe tricuspid valve regurgitation and mildly impaired left ventricular systolic function with EF of 45-50% #4. History of hypertension #5. Hyperlipidemia #6. 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 History of macular degeneration #8. History of diverticulitis status post partial colectomy #9. Lifetime nonsmoker Recommendation: Transfer patient out of the ICU to a monitor bed on selective. Continue present cardiac meds and antiplatelet [facility]. Continue statins. Continue diuretics. Titrate oxygen down as tolerates. Keep O2 saturation above 90%. Possible discharge planning in the next 24 hours. Time with Patient: Less than 30
--- NOTE | 2019-12-25 13:45 | P.PN ---
Subjective Progress Note Date: 12/25/19 HISTORY OF PRESENT ILLNESS This is an 84-year-old female one of Dr. Pacheco and Dr. 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 Patient states that yesterday she had sudden onset of increased weakness with significant heaviness in her arm. She denied having any chest pain or shortness of breath. No heaviness in her chest. Patient came into [facility] emergency center for evaluation. EKG with normal sinus rhythm with no acute ST changes. Temperature 99.9, heart rate 77, blood pressure 144/79. WBC 15.8, hemoglobin 11.8. Urinalysis was turbid, nitrite positive, blood moderate, leukoesterase large, squamous cell 16, bacteria many. Total bilirubin 1.1, AST 73, ALT 53, alk phos is 144. Troponin 0.566, 1.840, 1.550. Triglycerides 86, cholesterol 109, LDL 48, HDL 44. CAT scan of the brain revealed cerebral atrophy. No acute intracranial abnormality. Echocardiogram reveals EF of 45- 50% with moderate concentric left hypertrophy, LA severely dilated, mild aortic regurgitation, moderate mitral regurgitation, moderate to severe tricuspid regurgitation, severe pulmonary hypertension. Chest x-ray reveals no acute cardiopulmonary disease. Patient was admitted to the cardio stepdown unit and consult with cardiology requested. 12/17: Cardiology is following and plan for heart catheterization on Saturday. Patient is under treatment for acute UTI and urine culture showing gram-negative bacilli. Patient denies having any chest pain or shortness of breath. No lightheadedness or dizziness. She has been afebrile, heart rate 83, blood pressure 156/75, pulse ox 97% on room air. Repeat blood work reveals WBC 9.3, hemoglobin 10.9. CO2 19, creatinine 0.65. 12/18: Patient is resting up in bed with family at bedside. Patient denies any chest pain or difficulty breathing nausea or vomiting. Patient has been ambulatory in her room without any difficulties. Patient is scheduled for heart cath today. Patient is anxious to go home. Patient denies any dysuria or frequency. 12/19: Patient was found to have multivessel coronary artery disease with moderate mitral valve regurgitation and [id number] tricuspid valve regurgitation and seen and evaluated for myocardial revascularization surgery. Patient is considered to be very high risk for surgery due to friability and other comorbidities trans-esophageal echocardiogram will be obtained to make further consideration for surgery. Patient is on sitting up in chair in no acute distress. Patient denies any chest pain at this time she is able to ambulate to the bathroom without any difficulties. Patient has been afebrile. Pulse rate 98, respirations 18, blood pressure 1 4674 and pulse ox 94% on room air. Hemoglobin 11.2, potassium 3.6, BUN 11, creatinine 0.67 12/20: Patient underwent PATRIZIA today which revealed mild to moderate central mitral regurgitation. Normal LV systolic function. Patient has been seen by cardiothoracic surgery with plan for CABG tentatively scheduled for Saturday. Patient has been afebrile, heart rate 80, blood pressure 144/87, pulse ox 90% on 4 L nasal cannula. Repeat blood work ordered for tomorrow. 12/21: CTS and cardiology have determined that patient is too high risk for open heart surgery. Patient is scheduled tomorrow to undergo PCI with Impella assist by Dr. Hugo Murry. Blood pressure 140/70 with a heart rate of 70, 100% on 4 L of oxygen. WBC 14.3, hemoglobin 11.3, platelet count 459. Sodium 138, potassium 4.5, BUN 11, creatinine 0.6. patient's and family are at bedside. All questions have been answered. 12/22: Patient denies having any chest pain or shortness of breath. She states in general she is feeling well. She is scheduled for PCI today with Dr. Murry. Patient has been afebrile, heart rate 68, blood pressure 156/93, pulse ox 93% on room air. 12/23: Yesterday, patient underwent an [place] heart pump placement, PTCA and stenting of a bifurcation left main lesion with drug-eluting stents in the left main coronary artery, ostial and proximal LAD, ostial and proximal circumflex. Patient was subsequently transferred to the intensive care unit. She has been on levo fed. Bravo catheter is in place with marginal urine output. Repeat hemoglobin is 7. Dr. Davila is ordered 1 unit of packed RBC transfusion for today. Plan is to wean off vasopressor today. Repeat limited echocardiogram r eveals EF of 40-45% with mild aortic regurgitation, mild mitral regurgitation, mild to moderate tricuspid regurgitation, mild pulmonary hypertension. Repeat chest x-ray reveals correlate for congestive heart failure with basilar effusions and associated atelectasis versus edema, pneumonia not excluded. The patient denies any new complaints. She denies having any chest pain or shortness of breath. 12/24: Patient remains in the intensive care unit. She states she walked 24 feet yesterday and is planning to double that today. PT has recommended subacute rehab but her discharge plan is to return home as her daughter is living next door. Anticipate that patient will have continued improvement and most likely will be able to go home. Bravo cath remains in place and she's had good urine output. Plan to remove Bravo today. She is a longer on vasopressors. She is cleared to transfer to the cardiac stepdown unit. Repeat hemoglobin today is at 8. Dr. Davila is starting the patient on Aldactone 12.[address] Medina has ordered 1 dose of IV Lasix 20 mg today. Patient is afebrile, heart rate 81, blood pressure 135/49, pulse ox 90% on room air. Repeat blood work reveals WBC 14.8, hemoglobin 8, platelet count 342. Sodium 136, potassium 4.3, chloride 108, creatinine 0.76. Total bilirubin 0.4, AST 61, ALT 75, complaint phosphatase 79. REVIEW OF SYSTEMS Constitutional: No fever, no chills, no night sweats. No weight change. No weakness, reports fatiguey. No daytime sleepiness. EENT: No headache. No blurred vision or double vision, no loss of vision. No dizziness. Lungs: No shortness of breath, cough, no sputum production. No wheezing. Cardiovascular: No chest pain, no lower extremity edema. No palpitations. No paroxysmal nocturnal dyspnea. No orthopnea. No lightheadedness or dizziness. No syncopal episodes. Abdominal: No abdominal pain. No nausea, vomiting. No diarrhea. No constipation. No bloody or tarry stools.. No loss of appetite. Genitourinary: No dysuria, increased frequency, urgency. No urinary retention. Musculoskeletal: No myalgias. No muscle weakness, no gait dysfunction, no frequent falls. No back pain. No neck pain. Integumentary: No wounds, no lesions. No rash or pruritus. No unusual bruising. No change in hair or nails. Neurologic: No aphasia. No facial droop. No change in mentation. No headache. No paralysis. No paresthesia. Psychiatric: No depression. No anxiety. Endocrine: No abnormal blood sugars. No weight change. No excessive sweating or thirst. No cold intolerance. PHYSICAL EXAMINATION Gen: This is an 84-year-old female. Patient is in bed in the ICU. She appears to be in no acute distress. HEENT: Head is atraumatic, normocephalic. Pupils equal, round. Sclerae is anicteric. NECK: Supple. No JVD. No lymphadenopathy. No thyromegaly. LUNGS: Clear to auscultation. No wheezes or rhonchi. No intercostal retractions. HEART: Regular rate and rhythm. Systolic murmur. ABDOMEN: Soft. Bowel sounds are present. No masses. No tenderness. EXTREMITIES: No pedal edema. No calf tenderness. Dorsalis pedis +2 bilaterally. NEUROLOGICAL: Patient is awake, alert and oriented x3. Cranial nerves 2 through 12 are grossly intact. ASSESSMENT AND PLAN 1. Non-ST elevated myocardial infarction with multivessel coronary artery disease status post PTCA. Cardiology consult appreciated. Echocardiogram as above. Continue aspirin 81 mg daily, atorvastatin, Lopressor, Brilinta, Aldactone 12.5 mg added by cardiology. PATRIZIA and heart catheterization report as above. 2. Hypertension and hypertensive cardiovascular disease. Patient is off vasopressors. Blood pressure is stable. 3. Hyperlipidemia. Continue Lipitor 80 mg. 4. AMD. Continue PreserVision 1 tablet once every day. 5. History of polio syndrome with left leg weakness. 6. History of diverticulitis and partial colectomy, stable. 7. DVT prophylaxis. 8. GI prophylaxis. Continue Pepcid 20 mg PO every 12 hours. 9. E. coli acute urinary tract infection. Patient is on ceftriaxone and completed course of antibiotics. Discharge plan: home with home care with family support most likely. Impression and plan of care have been directed as dictated by the signing physician. Ann Dunne nurse practitioner acting as scribe for signing physici an. Objective - Vital Signs Vital signs: Vital Signs Temp 98 F 12/25/19 08:00 Pulse 81 12/25/19 08:00 Resp 18 12/25/19 08:00 BP 135/49 12/25/19 08:00 Pulse Ox 90 L 12/25/19 08:00 Intake & Output 12/24/19 12/25/19 12/25/19 18:59 06:59 18:59 Intake Total 1621.796 500 300 Output Total 685 770 75 Balance 936.796 -270 225 Weight 71.3 kg Intake: IV 600 500 100 .09 300 0.9 NaCl- 500 100 Magnesium Sulfate-D5w Pmx 200 1 gm In Dextrose/Water 1 100ml.bag @ 100 mls/hr IVPB Q1H [facility] Rx#: [id number] cefTRIAXone 1 gm In 100 Sodium Chloride 0.9% 50 ml @ 100 mls/hr IVPB Q12H [facility] Rx#:[id number] Intake, IV Titration 1.796 Amount Norepinephrine 4 mg In 1.796 Sodium Chloride 0.9% 250 ml @ 0.05 MCG/KG/MIN 13. 468 mls/hr IV .[id number] [facility] Rx#:[id number] Oral 710 200 Blood Product 310 Rc As-1 Unit 310 [id number] Output: Urine 685 770 75 Other: Voiding Method Indwelling Catheter Indwelling Catheter Indwelling Catheter # Voids 75 # Bowel Movements 1 - Labs CBC & Chem 7: 12/25/19 06:00 12/25/19 06:00 Labs: Abnormal Lab Results - Last 24 Hours (Table) 12/24/19 12/24/19 12/24/19 Range/Units 08:50 11:19 14:41 WBC 25.2 H (3.8-10.6) k/uL RBC 2.48 L (3.80-5.40) m/uL Hgb 8.6 L D (11.4-16.0) gm/dL Hct 26.2 L (34.0-46.0) % MCV 105.6 H (80.0-100.0) fL RDW 15.9 H (11.5-15.5) % Neutrophils # 21.8 H (1.3-7.7) k/uL Monocytes # 1.1 H (0-1.0) k/uL Sodium (137-145) mmol/L Chloride (98-107) mmol/L POC Glucose (mg/dL) 172 H (75-99) mg/dL Calcium (8.4-10.2) mg/dL AST (14-36) U/L ALT (4-34) U/L Total Protein (6.3-8.2) g/dL Albumin (3.5-5.0) g/dL Crossmatch See Detail 12/24/19 12/24/19 12/25/19 Range/Units 20:49 21:07 06:00 WBC 21.3 H 14.8 H (3.8-10.6) k/uL RBC 2.51 L 2.34 L (3.80-5.40) m/uL Hgb 8.7 L 8.0 L (11.4-16.0) gm/dL Hct 26.1 L 24.2 L (34.0-46.0) % MCV 104.1 H 103.7 H (80.0-100.0) fL RDW 16.2 H 16.7 H (11.5-15.5) % Neutrophils # 17.1 H 11.2 H (1.3-7.7) k/uL Monocytes # (0-1.0) k/uL Sodium (137-145) mmol/L Chloride (98-107) mmol/L POC Glucose (mg/dL) 105 H (75-99) mg/dL Calcium (8.4-10.2) mg/dL AST (14-36) U/L ALT (4-34) U/L Total Protein (6.3-8.2) g/dL Albumin (3.5-5.0) g/dL Crossmatch 12/25/19 Range/Units 06:00 WBC (3.8-10.6) k/uL RBC (3.80-5.40) m/uL Hgb (11.4-16.0) gm/dL Hct (34.0-46.0) % MCV (80.0-100.0) fL RDW (11.5-15.5) % Neutrophils # (1.3-7.7) k/uL Monocytes # (0-1.0) k/uL Sodium 136 L (137-145) mmol/L Chloride 108 H (98-107) mmol/L POC Glucose (mg/dL) (75-99) mg/dL Calcium 7.4 L (8.4-10.2) mg/dL AST 61 H (14-36) U/L ALT 75 H (4-34) U/L Total Protein 4.9 L (6.3-8.2) g/dL Albumin 2.2 L (3.5-5.0) g/dL Crossmatch
--- NOTE | 2019-12-25 14:54 | CDI ---
Documentation Clarification Form Date: 12/25/2019 02:19:23 PM From: Nicole Drake RN, CCDS Admit Date: 12/16/2019 06:10:00 PM Patient Name: Romana Ordoñez Visit Number: [id number] Discharge Date: ATTENTION: The Clinical Documentation Specialists (CDI) and [facility] Coding Staff appreciate your assistance in clarifying documentation. Please respond to the clarification below the line at the bottom and electronically sign. The CDI & [facility] Coding staff will review the response and follow-up if needed. Please note: Queries are made part of the Legal Health Record. If you have any questions, please contact the author of this message via ITS. Dr. Jess Medina 12/22 Suspect some component of systolic congestive heart failure is in the pulmonary progress notes. Please provide further specificity of systolic congestive heart failure. History/Risk Factors: NSTEMI, Severe pulmonary hypertension, Hyperlipidemia Polio Syndrome Clinical Indicators: 84-year-old female who present on 12/15 ruled in for NSTEMI, went for a PTCA with coronary drug eluting stent on 12/22. In your revaluation on it is documented that the patient is complaining of a bit of shortness of breath and productive cough. Lungs with very minimal crackles at the bases no rhonchi, and no wheezes. 12/22 Chest-x-ray: Mild increased right suprahilar lung markings. Small left pleural effusion 12/23 Chest x-ray: correlate for congestive heart failure with basilar effusions and associated atelectasis versus edema, pneumonia not excluded. VS/Pulse OX: 12/22 @ 16:13 96/66 70 20 98% 3/L NC 12/21 BNP [id number] 12/16 Echocardiogram: Moderate concentric left ventricular hypertrophy. Overall left ventricular systolic function is mildly impaired with, an EF between 45-50 % Treatment: Lasix 20 mg iv once (12/24) Lasix 20 mg iv 12/22 Lasix 20 mg iv q12 12/20-12/21 Lopressor 12.5 ulysses bid Aldactone 12.5 mg po daily In your professional opinion, can you please clarify the acuity and type of CHF if known? Acute Systolic Heart Failure Acute on Chronic Systolic Heart Failure Unable to Determine Other, please specify (Last Revision: June 2017) MTDD
[2019-12-25 16:49] LABS: Glucose,Whole Blood 93 mg/dL (75-99)
[2019-12-25 18:53] LABS: Anisocytosis Slight; Basophils % (A) 0 %; Eosinophils # (A) 0.4 k/uL (0-0.7); Eosinophils % (A) 3 %; HCT 26.1 % (34.0-46.0); HGB 8.7 gm/dL (11.4-16.0); Lymphocytes % (A) 14 %; MCH 34.7 pg (25.0-35.0); MCHC 33.5 g/dL (31.0-37.0); MCV 103.7 fL (80.0-100.0); Macrocytosis Moderate; Mean Platelet Volume 7.5; Monocytes # (A) 0.5 k/uL (0-1.0); Monocytes % (A) 3 %; Neutrophils # (A) 10.9 k/uL (1.3-7.7); Neutrophils % (A) 78 %; Platelet Count 419 k/uL (150-450); RBC 2.52 m/uL (3.80-5.40); RDW 16.2 % (11.5-15.5); WBC 13.9 k/uL (3.8-10.6)
[2019-12-25 19:42] LABS: Glucose,Whole Blood 100 mg/dL (75-99)
[2019-12-25] MEDS: ATORVASTATIN 80 MG TAB PO SCH (20:08)
[2019-12-25] MEDS: ALPRAZolam 0.5 MG TAB PO PRN (21:13)
[2019-12-26 05:03] LABS: Anisocytosis Slight; Basophils % (A) 0 %; Eosinophils # (A) 0.5 k/uL (0-0.7); Eosinophils % (A) 4 %; HCT 25.7 % (34.0-46.0); HGB 8.3 gm/dL (11.4-16.0); Lymphocytes # (A) 1.8 k/uL (1.0-4.8); Lymphocytes % (A) 15 %; MCH 33.8 pg (25.0-35.0); MCHC 32.4 g/dL (31.0-37.0); MCV 104.3 fL (80.0-100.0); Macrocytosis Moderate; Mean Platelet Volume 7.1; Monocytes # (A) 0.6 k/uL (0-1.0); Monocytes % (A) 5 %; Neutrophils # (A) 9.3 k/uL (1.3-7.7); Neutrophils % (A) 76 %; Platelet Count 403 k/uL (150-450); RBC 2.46 m/uL (3.80-5.40); RDW 16.6 % (11.5-15.5); WBC 12.3 k/uL (3.8-10.6)
[2019-12-26 05:15] LABS: ALT 80 U/L (4-34); AST 64 U/L (14-36); African American GFR (CKD) >90 (>60 ml/min/1.73 sqM); Albumin 2.4 g/dL (3.5-5.0); Alkaline Phosphatase 82 U/L (38-126); Anion Gap 3 mmol/L; Blood Urea Nitrogen 14 mg/dL (7-17); Calcium 7.6 mg/dL (8.4-10.2); Carbon Dioxide 26 mmol/L (22-30); Chloride 107 mmol/L (98-107); Glucose 80 mg/dL (74-99); Magnesium 2.1 mg/dL (1.6-2.3); Non-African American GFR(CKD) 79 (>60 ml/min/1.73 sqM); Potassium 4.5 mmol/L (3.5-5.1); Sodium 136 mmol/L (137-145); Total Bilirubin 0.5 mg/dL (0.2-1.3); Total Protein 5.2 g/dL (6.3-8.2)
[2019-12-26] MEDS: INSULIN ASPART (NovoLOG) 100 UNIT/ML VIAL SQ SCH ×3 (05:17→18:01)
--- NOTE | 2019-12-26 06:55 | P.PN ---
Subjective Progress Note Date: 12/26/19 Principal diagnosis: Acute coronary syndrome This is an 84-year-old female patient with hypertension and dyslipidemia on multiple comorbid conditions who presented to the hospital with a chest discomfort in for acute coronary event. She underwent a heart catheterization was found to have critical complex lesion involving the distal left main coronary artery and also the take off of the LAD and left circumflex. The patient deemed to be high risk for coronary artery bypass grafting. Subsequently she underwent yesterday stenting of the left main coronary artery by Dr. Murry. The patient was seen today 12/26/2019. When she was sitting she was sleeping comfortably. No reports of any chest pain or chest discomfort. Hemodynamically she continues to be stable and not on any vasopressors. The hemoglobin this morning is 8.3. Yesterday she received one unit of packed RBC. She is on maximize medical treatment including dual antiplatelet therapy as well as high intensity statin as well as diuretics. She did have a short episode of nonsustained ventricular tachycardia while she is sleeping and she was completely asymptomatic. From a cardiovascular standpoint of view, the patient can be possibly discharged home in the next 24 hours. Objective - Vital Signs Vital signs: Vital Signs Temp 97.6 F 12/26/19 03:41 Pulse 73 12/26/19 03:41 Resp 15 12/26/19 03:41 BP 143/64 12/26/19 03:41 Pulse Ox 97 12/26/19 03:41 Intake & Output 12/25/19 12/25/19 12/26/19 06:59 18:59 06:59 Intake Total 500 950 120 Output Total 770 1525 1100 Balance -479 -810 -728 Weight 71.3 kg 70.7 kg Intake: IV 500 150 0.9 NaCl- 500 150 Oral 800 120 Output: Urine 770 1525 1100 Other: Voiding Method Indwelling Catheter Indwelling Catheter Bedside Commode # Voids 1 1 # Bowel Movements 1 - Constitutional General appearance: Present: no acute distress - Respiratory Respiratory: bilateral: diminished - Cardiovascular Rhythm: regular Heart sounds: normal: S1, S2 - Labs CBC & Chem 7: 12/26/19 04:32 12/26/19 04:32 Labs: Abnormal Lab Results - Last 24 Hours (Table) 12/25/19 12/25/19 12/26/19 Range/Units 17:52 19:40 04:32 WBC 13.9 H 12.3 H (3.8-10.6) k/uL RBC 2.52 L 2.46 L (3.80-5.40) m/uL Hgb 8.7 L 8.3 L (11.4-16.0) gm/dL Hct 26.1 L 25.7 L (34.0-46.0) % MCV 103.7 H 104.3 H (80.0-100.0) fL RDW 16.2 H 16.6 H (11.5-15.5) % Neutrophils # 10.9 H 9.3 H (1.3-7.7) k/uL Sodium (137-145) mmol/L POC Glucose (mg/dL) 100 H (75-99) mg/dL Calcium (8.4-10.2) mg/dL AST (14-36) U/L ALT (4-34) U/L Total Protein (6.3-8.2) g/dL Albumin (3.5-5.0) g/dL 12/26/19 Range/Units 04:32 WBC (3.8-10.6) k/uL RBC (3.80-5.40) m/uL Hgb (11.4-16.0) gm/dL Hct (34.0-46.0) % MCV (80.0-100.0) fL RDW (11.5-15.5) % Neutrophils # (1.3-7.7) k/uL Sodium 136 L (137-145) mmol/L POC Glucose (mg/dL) (75-99) mg/dL Calcium 7.6 L (8.4-10.2) mg/dL AST 64 H (14-36) U/L ALT 80 H (4-34) U/L Total Protein 5.2 L (6.3-8.2) g/dL Albumin 2.4 L (3.5-5.0) g/dL Assessment and Plan Assessment: Assessment #1 acute non-ST patient myocardial infarction #2 severe CAD and status post a stenting of unprotected left main #3 hypotension requires vasopressors was norepinephrine #4 multiple comorbid conditions Plan #1 continue dual antiplatelet therapy along with high intensity statin #2 continue monitor the hemoglobin and kidney function and electrolytes #3 continue monitor for arrhythmia #4 possible discharge in the next 24 hours
[2019-12-26] MEDS: CALCIUM CARBONATE 500 MG CHEWABLE PO SCH (08:17)
[2019-12-26] MEDS: ASPIRIN 81 MG PO SCH (08:17)
[2019-12-26] MEDS: FAMOTIDINE 20 MG TAB PO SCH (08:18)
[2019-12-26] MEDS: SPIRONOLACTONE 25 MG TAB PO SCH (08:18)
[2019-12-26] MEDS: MULTIVITAMINS, THERA 1 EACH TAB PO SCH (08:18)
[2019-12-26] MEDS: VIT A,C & E-LUTEIN-MINERALS 1 EACH TAB PO SCH (08:18)
[2019-12-26] MEDS: METOPROLOL TARTRATE 12.5 MG TAB PO SCH ×2 (08:18→20:01)
[2019-12-26] MEDS: TICAGRELOR 90 MG TAB PO SCH ×2 (08:18→20:01)
[2019-12-26] MEDS: NON FORMULARY DRUG (Vitamin B Complex [Vitamin B Complex] 1 EACH Capsule) PO SCH (08:24)
--- NOTE | 2019-12-26 11:28 | P.PN ---
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 Patient presented to the emergency department on 12/16/2019 primarily with symptoms weakness, fatigue, with significant heaviness in her arm. Patient denied any chest pain or shortness of breath. EKG was negative for any acute ST changes, and showed normal sinus rhythm, she had elevated troponins of 0.566, 1.840, and 1.550. Echocardiogram showed EF of 45-50% with moderately severe concentric left hypertrophy, severely dilated left atrium, mild aortic regurgitation, moderate mitral regurgitation moderate to severe tricuspid regurgitation and severe pulmonary hypertension. Cardiology ruled the patient in for non-ST elevated myocardial infarction. Patient was also found to have acute urinary tract infection for which she was placed on antibiotics, urine cultures positive for E. coli. Patient had heart catheterization on 12/20/2019 and was found to have severe ostial LAD and circumflex coronary artery stenosis with borderline distal left main stenosis. Patient was referred to CT surgery for possibility of surgical revascularizat ion. Patient however was determined to be at very high risk for surgery due to frailty and other comorbidities, and the plan currently is to proceed with PCI and stenting of the LAD and circumflex with Impella support possibly tomorrow on 12/23/2019. CT chest without contrast showed small bilateral pleural effusions and associate compressive atelectasis without suspicious focal consolidation. W e were asked to see in consultation for possible surgery, and pulmonary/critical care management following surgery. Patient was reevaluated today on 12/23/19, a shunt underwent percutaneous transluminal coronary angioplasty with coronary drug eluting stents placement today. Postoperatively the patient was transferred back to the ICU, she was hypotensive requiring levo fed presently at 0.04 mcg/kg/m, patient is complaining of a bit of shortness of breath and productive cough. No fever no chills no hemoptysis no chest pain. Chest x-ray is pending, patient received a dose of Lasix chest before she was transferred to the ICU while in the cardiac [employer]. CBC today showed WBC of 17.7 hemoglobin is 8.2 her PTT was therapeutic earlier at 65. Chest x-ray is pending. Patient was reevaluated today on 12/25/19, feels great, denies any cough wheezing shortness of breath denies any chest pain. Chest x-ray showed mild CHF, patient received a dose of Lasix earlier today, and she is relatively asymptomatic. She is hemodynamically stable, she is on multiple cardiac meds, hemoglobin this morn ing is 8. Patient was placed on Aldactone 12.5 mg daily by cardiology. And she remains on dual antiplatelet therapy along with statin. Patient was reevaluated today on 12/26/19, remains in the ICU as an overflow from [facility]. Patient is on room air, doing quite well, she received a unit of packed RBCs yesterday for low hemoglobin. Her hemoglobin today is 8.3. Patient had an episode of nonsustained ventricular tachycardia while she was sleeping, patient was asymptomatic, cardiology is aware, hence her discharge planning is delayed today, and we'll likely be discharged home tomorrow. Patient denies any pulmonary symptoms whatsoever. Labs were all reviewed. No chest x-ray was done today. Patient is again asymptomatic Objective - Vital Signs Vital signs: Vital Signs Temp 97 F L 12/26/19 08:00 Pulse 78 12/26/19 08:00 Resp 14 12/26/19 08:00 BP 123/46 12/26/19 08:00 Pulse Ox 100 12/26/19 08:00 Intake & Output 12/25/19 12/26/19 12/26/19 18:59 06:59 18:59 Intake Total 950 120 Output Total 1525 1100 Balance -575 -980 Weight 70.7 kg Intake: IV 150 0.9 NaCl- 150 Oral 800 120 Output: Urine 1525 1100 Other: Voiding Method Indwelling Catheter Bedside Commode Bedside Commode # Voids 1 1 2 # Bowel Movements 1 - Exam GENERAL EXAM: Alert, very pleasant, 84-year-old white female, in no distress. On room air. HEENT: Head is atraumatic, normocephalic, PERRLA, EOMI, no icterus, no neck mas ses, no JVD, no stridor. CHEST: No chest wall deformity. Symmetrical expansion. LUNGS: Diminished breath sounds at the bases, no crackles or rhonchi or wheezes. CVS: Regular rate and rhythm, normal S1 and S2, no gallops, no murmurs, no rubs ABDOMEN: Soft, nontender. No hepatosplenomegaly, normal bowel sounds, no guarding or rigidity. EXTREMITIES: No clubbing, trace of bipedal edema, no cyanosis, 2+ pulses and upper and lower extremities. MUSCULOSKELETAL: Muscle strength and tone normal. SPINE: No scoliosis or deformity SKIN: No rashes CENTRAL NERVOUS SYSTEM: Alert oriented 3 in no gross focal neurologic deficits. Psychiatric: Normal mood affect and normal mental status examination - Labs CBC & Chem 7: 12/26/19 04:32 12/26/19 04:32 Labs: Abnormal Lab Results - Last 24 Hours (Table) 12/25/19 12/25/19 12/26/19 Range/Units 17:52 19:40 04:32 WBC 13.9 H 12.3 H (3.8-10.6) k/uL RBC 2.52 L 2.46 L (3.80-5.40) m/uL Hgb 8.7 L 8.3 L (11.4-16.0) gm/dL Hct 26.1 L 25.7 L (34.0-46.0) % MCV 103.7 H 104.3 H (80.0-100.0) fL RDW 16.2 H 16.6 H (11.5-15.5) % Neutrophils # 10.9 H 9.3 H (1.3-7.7) k/uL Sodium (137-145) mmol/L POC Glucose (mg/dL) 100 H (75-99) mg/dL Calcium (8.4-10.2) mg/dL AST (14-36) U/L ALT (4-34) U/L Total Protein (6.3-8.2) g/dL Albumin (3.5-5.0) g/dL 12/26/19 Range/Units 04:32 WBC (3.8-10.6) k/uL RBC (3.80-5.40) m/uL Hgb (11.4-16.0) gm/dL Hct (34.0-46.0) % MCV (80.0-100.0) fL RDW (11.5-15.5) % Neutrophils # (1.3-7.7) k/uL Sodium 136 L (137-145) mmol/L POC Glucose (mg/dL) (75-99) mg/dL Calcium 7.6 L (8.4-10.2) mg/dL AST 64 H (14-36) U/L ALT 80 H (4-34) U/L Total Protein 5.2 L (6.3-8.2) g/dL Albumin 2.4 L (3.5-5.0) g/dL Assessment and Plan Assessment: 1. Acute Non-ST elevated myocardial infarction, patient is status post percutaneous transluminal angioplasty and multiple stent placement, and acute systolic congestive heart failure #2. Multivessel coronary artery disease, was determined to be too high risk for surgical intervention, awaiting PCI and stenting with Impala support of the circumflex and LAD coronary arteries on 12/23/2019 #3. Severe pulmonary hypertension, moderate mitral valve regurg, and moderate to severe tricuspid valve regurgitation and mildly impaired left ventricular systolic function with EF of 45-50% #4. History of hypertension #5. Hyperlipidemia #6. 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 History of macular degeneration #8. History of diverticulitis status post partial colectomy #9. Lifetime nonsmoker #10 nonsustained ventricular tachycardia Recommendation: Continue treatment plan as per cardiology, According to the note by cardiology the patient will be discharged home tomorrow. Cleared from our perspective. Continue statins. Continue diuretics. Will follow when necessary. Time with Patient: Less than 30
[2019-12-26 11:36] LABS: Glucose,Whole Blood 96 mg/dL (75-99)
--- NOTE | 2019-12-26 14:26 | P.PN ---
Subjective Progress Note Date: 12/26/19 This is an 84-year-old female one of Dr. Pacheco and Dr. 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 Patient states that yesterday she had sudden onset of increased weakness with significant heaviness in her arm. She denied having any chest pain or shortness of breath. No heaviness in her chest. Patient came into [facility] emergency center for evaluation. EKG with normal sinus rhythm with no acute ST changes. Temperature 99.9, heart rate 77, blood pressure 144/79. WBC 15.8, hemoglobin 11.8. Urinalysis was turbid, nitrite positive, blood moderate, leukoesterase large, squamous cell 16, bacteria many. Total bilirubin 1.1, AST 73, ALT 53, alk phos is 144. Troponin 0.566, 1.840, 1.550. Triglycerides 86, cholesterol 109, LDL 48, HDL 44. CAT scan of the brain revealed cerebral atrophy. No acute intracranial abnormality. Echocardiogram reveals EF of 45- 50% with moderate concentric left hypertrophy, LA severely dilated, mild aortic regurgitation, moderate mitral regurgitation, moderate to severe tricuspid regurgitation, severe pulmonary hypertension. Chest x-ray reveals no acute cardiopulmonary disease. Patient was admitted to the cardio stepdown unit and consult with cardiology requested. 12/17: Cardiology is following and plan for heart catheterization on Saturday. Patient is under treatment for acute UTI and urine culture showing gram-negative bacilli. Patient denies having any chest pain or shortness of breath. No lightheadedness or dizziness. She has been afebrile, heart rate 83, blood pressure 156/75, pulse ox 97% on room air. Repeat blood work reveals WBC 9.3, hemoglobin 10.9. CO2 19, creatinine 0.65. 12/18: Patient is resting up in bed with family at bedside. Patient denies any chest pain or difficulty breathing nausea or vomiting. Patient has been ambulatory in her room without any difficulties. Patient is scheduled for heart cath today. Patient is anxious to go home. Patient denies any dysuria or frequency. 12/19: Patient was found to have multivessel coronary artery disease with moderate mitral valve regurgitation and [id number] tricuspid valve regurgitation and seen and evaluated for myocardial revascularization surgery. Patient is considered to be very high risk for surgery due to friability and o ther comorbidities trans-esophageal echocardiogram will be obtained to make further consideration for surgery. Patient is on sitting up in chair in no acute distress. Patient denies any chest pain at this time she is able to ambulate to the bathroom without any difficulties. Patient has been afebrile. Pulse rate 98, respirations 18, blood pressure 1 4674 and pulse ox 94% on room air. Hemoglobin 11.2, potassium 3.6, BUN 11, creatinine 0.67 12/20: Patient underwent PATRIZIA today which revealed mild to moderate central mitral regurgitation. Normal LV systolic function. Patient has been seen by cardiothoracic surgery with plan for CABG tentatively scheduled for Saturday. Patient has been afebrile, heart rate 80, blood pressure 144/87, pulse ox 90% on 4 L nasal cannula. Repeat blood work ordered for tomorrow. 12/21: CTS and cardiology have determined that patient is too high risk for open heart surgery. Patient is scheduled tomorrow to undergo PCI with Impella assist by Dr. Hugo Murry. Blood pressure 140/70 with a heart rate of 70, 100% on 4 L of oxygen. WBC 14.3, hemoglobin 11.3, platelet count 459. Sodium 138, potassium 4.5, BUN 11, creatinine 0.6. patient's and family are at bedside. All questions have been answered. 12/22: Patient denies having any chest pain or shortness of breath. She states in general she is feeling well. She is scheduled for PCI today with Dr. Murry. Patient has been afebrile, heart rate 68, blood pressure 156/93, pulse ox 93% on room air. 12/23: Yesterday, patient underwent an [place] heart pump placement, PTCA and stenting of a bifurcation left main lesion with drug-eluting stents in the left main coronary artery, ostial and proximal LAD, ostial and proximal circumflex. Patient was subsequently transferred to the intensive care unit. She has been on levo fed. Bravo catheter is in place with marginal urine output. Repeat hemoglobin is 7. Dr. Davila is ordered 1 unit of packed RBC transfusion for today. Plan is to wean off vasopressor today. Repeat limited echocardiogram reveals EF of 40-45% with mild aortic regurgitation, mild mitral regurgitation, mild to moderate tricuspid regurgitation, mild pulmonary hypertension. Repeat chest x-ray reveals correlate for congestive heart failure with basilar effusions and associated atelectasis versus edema, pneumonia not excluded. The patient denies any new complaints. She denies having any chest pain or shortness of breath. 12/24: Patient remains in the intensive care unit. She states she walked 24 feet yesterday and is planning to double that today. PT has recommended subacute rehab but her discharge plan is to return home as her daughter is living next door. Anticipate that patient will have continued improvement and most likely will be able to go home. Bravo cath remains in place and she's had good urine output. Plan to remove Bravo today. She is a longer on vasopressors. She is cleared to transfer to the cardiac stepdown unit. Repeat hemoglobin today is at 8. Dr. Davila is starting the patient on Aldactone 12.[address] Medina has ordered 1 dose of IV Lasix 20 mg today. Patient is afebrile, heart rate 81, blood pressure 135/49, pulse ox 90% on room air. Repeat blood work reveals WBC 14.8, hemoglobin 8, platelet count 342. Sodium 136, potassium 4.3, chloride 108, creatinine 0.76. Total bilirubin 0.4, AST 61, ALT 75, complaint phosphata se 79. 12/25 patient examined bedside doing well denies any symptoms. Patient did have an overnight event. Patient had a nonsustained V. tach while she was sleeping but was completely asymptomatic. Cardiology recommended 24-hour monitoring before discharge. Patient is asymptomatic denies any chest pain or breathing difficulty. Hemoglobin is stable at 8.3 white cell count is 12.3 sodium 136 p otassium 4.5 BUN 14 creatinine 0.7 calcium 7.6 and AST of 64 ALT 80. Vitals otherwise stable with temp 97. 78 respiratory rate 14 blood pressure 123/46 oxygen saturation 100% on room air. Patient's planned to be discharged home tomorrow REVIEW OF SYSTEMS Constitutional: No fever, no chills, no night sweats. No weight change. No weakness, reports fatiguey. No daytime sleepiness. EENT: No headache. No blurred vision or double vision, no loss of vision. No dizziness. Lungs: No shortness of breath, cough, no sputum production. No wheezing. Cardiovascular: No chest pain, no lower extremity edema. No palpitations. No paroxysmal nocturnal dyspnea. No orthopnea. No lightheadedness or dizziness. No syncopal episodes. Abdominal: No abdominal pain. No nausea, vomiting. No diarrhea. No constipation. No bloody or tarry stools.. No loss of appetite. Genitourinary: No dysuria, increased frequency, urgency. No urinary retention. Musculoskeletal: No myalgias. No muscle weakness, no gait dysfunction, no frequent falls. No back pain. No neck pain. Integumentary: No wounds, no lesions. No rash or pruritus. No unusual bruising. No change in hair or nails. Neurologic: No aphasia. No facial droop. No change in mentation. No headache. No paralysis. No paresthesia. Psychiatric: No depression. No anxiety. Endocrine: No abnormal blood sugars. No weight change. No excessive sweating or thirst. No cold intolerance. Objective - Vital Signs Vital signs: Vital Signs Temp 98.3 F 12/26/19 12:00 Pulse 67 12/26/19 12:00 Resp 16 12/26/19 12:00 BP 133/70 12/26/19 12:00 Pulse Ox 98 12/26/19 12:00 Intake & Output 12/25/19 12/26/19 12/26/19 18:59 06:59 18:59 Intake Total 950 120 Output Total 1525 1100 Balance -575 -980 Weight 70.7 kg Intake: IV 150 0.9 NaCl- 150 Oral 800 120 Output: Urine 1525 1100 Other: Voiding Method Indwelling Catheter Bedside Commode Bedside Commode # Voids 1 1 2 # Bowel Movements 1 - Exam - Constitutional General appearance: cooperative, no acute distress, appears comfortable - EENT Eyes: anicteric sclerae, pupils equal and round normal appearance ENT: hearing grossly normal - Neck Neck: no lymphadenopathy, normal ROM, no other, no rigidity, no stridor, no thyromegaly - Respiratory Respiratory: bilateral: CTA, negative: diminished, dullness, rales, rhonchi - Cardiovascular Rhythm: regular Heart sounds: normal: S1, S2 Abnormal Heart Sounds: Systolic murmur no diastolic murmur, no rub, no S3 Gallop, no S4 Gallop, no click, no other - Gastrointestinal General gastrointestinal: normal bowel sounds, soft nontender - Integumentary Integumentary: no rash no hematoma at the site of impella or cath - Neurologic Neurologic: CNII-XII intact - Musculoskeletal Musculoskeletal: gait normal, strength equal bilaterally - Psychiatric Psychiatric: A&O x's 3, appropriate affect - Labs CBC & Chem 7: 12/26/19 04:32 12/26/19 04:32 Labs: Abnormal Lab Results - Last 24 Hours (Table) 12/25/19 12/25/19 12/26/19 Range/Units 17:52 19:40 04:32 WBC 13.9 H 12.3 H (3.8-10.6) k/uL RBC 2.52 L 2.46 L (3.80-5.40) m/uL Hgb 8.7 L 8.3 L (11.4-16.0) gm/dL Hct 26.1 L 25.7 L (34.0-46.0) % MCV 103.7 H 104.3 H (80.0-100.0) fL RDW 16.2 H 16.6 H (11.5-15.5) % Neutrophils # 10.9 H 9.3 H (1.3-7.7) k/uL Sodium (137-145) mmol/L POC Glucose (mg/dL) 100 H (75-99) mg/dL Calcium (8.4-10.2) mg/dL AST (14-36) U/L ALT (4-34) U/L Total Protein (6.3-8.2) g/dL Albumin (3.5-5.0) g/dL 12/26/19 Range/Units 04:32 WBC (3.8-10.6) k/uL RBC (3.80-5.40) m/uL Hgb (11.4-16.0) gm/dL Hct (34.0-46.0) % MCV (80.0-100.0) fL RDW (11.5-15.5) % Neutrophils # (1.3-7.7) k/uL Sodium 136 L (137-145) mmol/L POC Glucose (mg/dL) (75-99) mg/dL Calcium 7.6 L (8.4-10.2) mg/dL AST 64 H (14-36) U/L ALT 80 H (4-34) U/L Total Protein 5.2 L (6.3-8.2) g/dL Albumin 2.4 L (3.5-5.0) g/dL Assessment and Plan Plan: 1. Non-ST elevated myocardial infarction with multivessel coronary artery disease status post PTCA. Cardiology consult appreciated. Echocardiogram as above. Continue aspirin 81 mg daily, atorvastatin, Lopressor, Brilinta, Aldactone 12.5 mg added by cardiology. PATRIZIA and heart catheterization report as above. 2. Hypertension and hypertensive cardiovascular disease. Patient is off vasopressors. Blood pressure is stable. 3. Hyperlipidemia. Continue Lipitor 80 mg. 4. AMD. Continue PreserVision 1 tablet once every day. 5. History of polio syndrome with left leg weakness. 6. History of diverticulitis and partial colectomy, stable. 7. DVT prophylaxis. 8. GI prophylaxis. Continue Pepcid 20 mg PO every 12 hours. 9. E. coli acute urinary tract infection. Patient is on ceftriaxone and completed course of antibiotics. 10 nonsustained V. tachycardia - magnesium 2.1 potassium 4.5 no new episode seen on telemetry. Monitor for the next 24 hours Discharge plan: home with home care with family support most likely.
[2019-12-26 17:09] LABS: Glucose,Whole Blood 104 mg/dL (75-99)
[2019-12-26] MEDS: ATORVASTATIN 80 MG TAB PO SCH (20:01)
--- NOTE | 2019-12-27 07:05 | P.PN ---
Subjective Progress Note Date: 12/27/19 Principal diagnosis: Acute coronary syndrome This is an 84-year-old female patient with hypertension and dyslipidemia on multiple comorbid conditions who presented to the hospital with a chest discomfort in for acute coronary event. She underwent a heart catheterization was found to have critical complex lesion involving the distal left main coronary artery and also the take off of the LAD and left circumflex. The patient deemed to be high risk for coronary artery bypass grafting. Subsequently she underwent yesterday stenting of the left main coronary artery by Dr. Murry. The patient was seen today 12/27/2019. She is asymptomatic from a cardiovascular standpoint. She is hemodynamically stable. The hemoglobin this morning is 8.3. She is on dual antiplatelet therapy along with high intensity statin. From a cardiovascular standpoint of view, the patient can be discharged home. Objective - Vital Signs Vital signs: Vital Signs Temp 97.7 F 12/27/19 04:00 Pulse 69 12/27/19 04:00 Resp 14 12/27/19 04:00 BP 144/57 12/27/19 04:00 Pulse Ox 96 12/27/19 04:00 Intake & Output 12/26/19 12/27/19 12/27/19 18:59 06:59 18:59 Intake Total 240 Output Total 600 Balance -360 Weight 70 kg Intake: Oral 240 Output: Urine 600 Other: Voiding Method Bedside Commode Bedside Commode # Voids 2 1 - Constitutional General appearance: Present: no acute distress - Respiratory Respiratory: bilateral: CTA - Cardiovascular Rhythm: regular Heart sounds: normal: S1, S2 - Labs CBC & Chem 7: 12/26/19 04:32 12/26/19 04:32 Labs: Abnormal Lab Results - Last 24 Hours (Table) 12/26/19 Range/Units 17:07 POC Glucose (mg/dL) 104 H (75-99) mg/dL Assessment and Plan Assessment: Assessment #1 acute non-ST patient myocardial infarction #2 severe CAD and status post a stenting of unprotected left main #3 hypotension requires vasopressors was norepinephrine #4 multiple comorbid conditions Plan #1 continue dual antiplatelet therapy along with high intensity statin #2 the patient can be discharged home
[2019-12-27 08:41] VITALS: BP 141/52; RESP 16
[2019-12-27] MEDS: ASPIRIN 81 MG PO SCH (08:43)
[2019-12-27] MEDS: METOPROLOL TARTRATE 12.5 MG TAB PO SCH (08:43)
[2019-12-27] MEDS: VIT A,C & E-LUTEIN-MINERALS 1 EACH TAB PO SCH (08:43)
[2019-12-27] MEDS: CALCIUM CARBONATE 500 MG CHEWABLE PO SCH (08:43)
[2019-12-27] MEDS: TICAGRELOR 90 MG TAB PO SCH (08:43)
[2019-12-27] MEDS: SPIRONOLACTONE 25 MG TAB PO SCH (08:44)
[2019-12-27] MEDS: MULTIVITAMINS, THERA 1 EACH TAB PO SCH (08:44)
[2019-12-27] MEDS: FAMOTIDINE 20 MG TAB PO SCH (08:44)
[2019-12-27] MEDS: NON FORMULARY DRUG (Vitamin B Complex [Vitamin B Complex] 1 EACH Capsule) PO SCH (08:45)
[2019-12-27 11:46] LABS: Glucose,Whole Blood 97 mg/dL (75-99)
--- NOTE | 2019-12-27 12:54 | P.PN ---
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 Patient presented to the emergency department on 12/16/2019 primarily with symptoms weakness, fatigue, with significant heaviness in her arm. Patient denied any chest pain or shortness of breath. EKG was negative for any acute ST changes, and showed normal sinus rhythm, she had elevated troponins of 0.566, 1.840, and 1.550. Echocardiogram showed EF of 45-50% with moderately severe concentric left hypertrophy, severely dilated left atrium, mild aortic regurgitation, moderate mitral regurgitation moderate to severe tricuspid regurgitation and severe pulmonary hypertension. Cardiology ruled the patient in for non-ST elevated myocardial infarction. Patient was also found to have acute urinary tract infection for which she was placed on antibiotics, urine cultures positive for E. coli. Patient had heart catheterization on 12/20/2019 and was found to have severe ostial LAD and circumflex coronary artery stenosis with borderline distal left main stenosis. Patient was referred to CT surgery for possibility of surgical revascularizat ion. Patient however was determined to be at very high risk for surgery due to frailty and other comorbidities, and the plan currently is to proceed with PCI and stenting of the LAD and circumflex with Impella support possibly tomorrow on 12/23/2019. CT chest without contrast showed small bilateral pleural effusions and associate compressive atelectasis without suspicious focal consolidation. W e were asked to see in consultation for possible surgery, and pulmonary/critical care management following surgery. Patient was reevaluated today on 12/23/19, a shunt underwent percutaneous transluminal coronary angioplasty with coronary drug eluting stents placement today. Postoperatively the patient was transferred back to the ICU, she was hypotensive requiring levo fed presently at 0.04 mcg/kg/m, patient is complaining of a bit of shortness of breath and productive cough. No fever no chills no hemoptysis no chest pain. 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 CBC today showed WBC of 17.7 hemoglobin is 8.2 her PTT was therapeutic earlier at 65. Chest x-ray is pending. Patient was reevaluated today on 12/25/19, feels great, denies any cough wheezing shortness of breath denies any chest pain. Chest x-ray showed mild CHF, patient received a dose of Lasix earlier today, and she is relatively asymptomatic. She is hemodynamically stable, she is on multiple cardiac meds, hemoglobin this morn ing is 8. Patient was placed on Aldactone 12.5 mg daily by cardiology. And she remains on dual antiplatelet therapy along with statin. Patient was reevaluated today on 12/26/19, remains in the ICU as an overflow from selective. Patient is on room air, doing quite well, she received a unit of packed RBCs yesterday for low hemoglobin. Her hemoglobin today is 8.3. Patient had an episode of nonsustained ventricular tachycardia while she was sleeping, patient was asymptomatic, cardiology is aware, hence her discharge planning is delayed today, and we'll likely be discharged home tomorrow. Patient denies any pulmonary symptoms whatsoever. Labs were all reviewed. No chest x-ray was done today. Patient is again asymptomatic Patient was reevaluated today on 12/27/19, patient is doing great, asymptomatic, hemoglobin is stable at 8.3, no arrhythmias overnight, and she was cleared from cardiology to be discharged home today. I feel the same. Objective - Vital Signs Vital signs: Vital Signs Temp 98.3 F 12/27/19 08:00 Pulse 73 12/27/19 08:00 Resp 16 12/27/19 08:00 BP 141/52 12/27/19 08:00 Pulse Ox 100 12/27/19 08:00 Intake & Output 12/26/19 12/27/19 12/27/19 18:59 06:59 18:59 Intake Total 240 Output Total 600 Balance -360 Weight 70 kg Intake: Oral 240 Output: Urine 600 Other: Voiding Method Bedside Commode Bedside Commode Bedside Commode # Voids 2 1 4 - Exam GENERAL EXAM: Alert, very pleasant, 84-year-old white female, in no distress. On room air. HEENT: Head is atraumatic, normocephalic, PERRLA, EOMI, no icterus, no neck masses, no JVD, no stridor. CHEST: No chest wall deformity. Symmetrical expansion. LUNGS: Diminished breath sounds at the bases, no crackles or rhonchi or wheezes. CVS: Regular rate and rhythm, normal S1 and S2, no gallops, no murmurs, no rubs ABDOMEN: Soft, nontender. No hepatosplenomegaly, normal bowel sounds, no guarding or rigidity. EXTREMITIES: No clubbing, trace of bipedal edema, no cyanosis, 2+ pulses and upper and lower extremities. MUSCULOSKELETAL: Muscle strength and tone normal. SPINE: No scoliosis or deformity SKIN: No rashes CENTRAL NERVOUS SYSTEM: Alert oriented 3 in no gross focal neurologic deficits. Psychiatric: Normal mood affect and normal mental status examination - Labs CBC & Chem 7: 12/26/19 04:32 12/26/19 04:32 Labs: Abnormal Lab Results - Last 24 Hours (Table) 12/26/19 Range/Units 17:07 POC Glucose (mg/dL) 104 H (75-99) mg/dL Assessment and Plan Assessment: 1. Acute Non-ST elevated myocardial infarction, patient is status post percutaneous transluminal angioplasty and multiple stent placement, and acute systolic congestive heart failure #2. Multivessel coronary artery disease, was determined to be too high risk for surgical intervention, awaiting PCI and stenting with Impala support of the circumflex and LAD coronary arteries on 12/23/2019 #3. Severe pulmonary hypertension, moderate mitral valve regurg, and moderate to severe tricuspid valve regurgitation and mildly impaired left ventricular systolic function with EF of 45-50% #4. History of hypertension #5. Hyperlipidemia #6. 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 History of macular degeneration #8. History of diverticulitis status post partial colectomy #9. Lifetime nonsmoker #10 nonsustained ventricular tachycardia Recommendation: Continue present cardiac meds. Cleared from my perspective for discharge home if cleared by cardiology. Continue statins. Continue diuretics. Time with Patient: Less than 30
[2019-12-27 13:12] VITALS: PULSE 74; TEMP 98.4
--- NOTE | 2019-12-27 13:21 | P.DS ---
Providers Date of admission: 12/16/19 18:10 Attending physician: Bubba Lima Consults: 12/16/19 18:10 Consult Physician Urgent Consulting Provider: Fabiola Murry Consult Reason/Comments: nstemi Do you want consulting provider notified?: Yes 12/21/19 16:22 Consult Physician Routine Consulting Provider: Jess Medina Consult Reason/Comments: preop cabg Do you want consulting provider notified?: Yes Primary care physician: Narciso Pacheco [facility] Course: This is an 84-year-old female one of Dr. Pacheco and Dr. 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 Patient states that yesterday she had sudden onset of increased weakness with significant heaviness in her arm. She denied having any chest pain or shortness of breath. No heaviness in her chest. Patient came into [facility] emergency center for evaluation. EKG with normal sinus rhythm with no acute ST changes. Temperature 99.9, heart rate 77, blood pressure 144/79. WBC 15.8, hemoglobin 11.8. Urinalysis was turbid, nitrite positive, blood moderate, leukoesterase large, squamous cell 16, bacteria many. Total bilirubin 1.1, AST 73, ALT 53, alk phos is 144. Troponin 0.566, 1.840, 1.550. Triglycerides 86, cholesterol 109, LDL 48, HDL 44. CAT scan of the brain revealed cerebral atrophy. No acute intracranial abnormality. Echocardiogram reveals EF of 45- 50% with moderate concentric left hypertrophy, LA severely dilated, mild aortic regurgitation, moderate mitral regurgitation, moderate to severe tricuspid regurgitation, severe pulmonary hypertension. Chest x-ray reveals no acute cardiopulmonary disease. Patient was admitted to the cardio stepdown unit and consult with cardiology requested. 12/17: Cardiology is following and plan for heart catheterization on Saturday. Patient is under treatment for acute UTI and urine culture showing gram-negative bacilli. Patient denies having any chest pain or shortness of breath. No lightheadedness or dizziness. She has been afebrile, heart rate 83, blood pressure 156/75, pulse ox 97% on room air. Repeat blood work reveals WBC 9.3, hemoglobin 10.9. CO2 19, creatinine 0.65. 12/18: Patient is resting up in bed with family at bedside. Patient denies any chest pain or difficulty breathing nausea or vomiting. Patient has been ambulatory in her room without any difficulties. Patient is scheduled for heart cath today. Patient is anxious to go home. Patient denies any dysuria or frequency. 12/19: Patient was found to have multivessel coronary artery disease with moderate mitral valve regurgitation and [id number] tricuspid valve regurgitation and seen and evaluated for myocardial revascularization surgery. Patient is considered to be very high risk for surgery due to friability and other comorbidities trans-esophageal echocardiogram will be obtained to make further consideration for surgery. Patient is on sitting up in chair in no acute distress. Patient denies any chest pain at this time she is able to ambulate to the bathroom without any difficulties. Patient has been afebrile. Pulse rate 98, respirations 18, blood pressure 1 4674 and pulse ox 94% on room air. Hemoglobin 11.2, potassium 3.6, BUN 11, creatinine 0.67 12/20: Patient underwent PATRIZIA today which revealed mild to moderate central mitral regurgitation. Normal LV systolic function. Patient has been seen by cardiothoracic surgery with plan for CABG tentatively scheduled for Saturday. Patient has been afebrile, heart rate 80, blood pressure 144/87, pulse ox 90% on 4 L nasal cannula. Repeat blood work ordered for tomorrow. 12/21: CTS and cardiology have determined that patient is too high risk for open heart surgery. Patient is scheduled tomorrow to undergo PCI with Impella assist by Dr. Hugo Murry. Blood pressure 140/70 with a heart rate of 70, 100% on 4 L of oxygen. WBC 14.3, hemoglobin 11.3, platelet count 459. Sodium 138, potassium 4.5, BUN 11, creatinine 0.6. patient's and family are at bedside. All questions have been answered. 12/22: Patient denies having any chest pain or shortness of breath. She states in general she is feeling well. She is scheduled for PCI today with Dr. Murry. Patient has been afebrile, heart rate 68, blood pressure 156/93, pulse ox 93% on room air. 12/23: Yesterday, patient underwent an [place] heart pump placement, PTCA and stenting of a bifurcation left main lesion with drug-eluting stents in the left main coronary artery, ostial and proximal LAD, ostial and proximal circumflex. Patient was subsequently transferred to the intensive care unit. She has been on levo fed. Bravo catheter is in place with marginal urine output. Repeat hemoglobin is 7. Dr. Davila is ordered 1 unit of packed RBC transfusion for today. Plan is to wean off vasopressor today. Repeat limited echocardiogram reveals EF of 40-45% with mild aortic regurgitation, mild mitral regurgitation, mild to moderate tricuspid regurgitation, mild pulmonary hypertension. Repeat chest x-ray reveals correlate for congestive heart failure with basilar effusions and associated atelectasis versus edema, pneumonia not excluded. The patient denies any new complaints. She denies having any chest pain or shortn ess of breath. 12/24: Patient remains in the intensive care unit. She states she walked 24 feet yesterday and is planning to double that today. PT has recommended subacute rehab but her discharge plan is to return home as her daughter is living next door. Anticipate that patient will have continued improvement and most likely will be able to go home. Bravo cath remains in place and she's had good urine output. Plan to remove Bravo today. She is a longer on vasopressors. She is cleared to transfer to the cardiac stepdown unit. Repeat hemoglobin today is at 8. Dr. Davila is starting the patient on Aldactone 12.[address] Medina has ordered 1 dose of IV Lasix 20 mg today. Patient is afebrile, heart rate 81, blood pressure 135/49, pulse ox 90% on room air. Repeat blood work reveals WBC 14.8, hemoglobin 8, platelet count 342. Sodium 136, potassium 4.3, chloride 108, creatinine 0.76. Total bilirubin 0.4, AST 61, ALT 75, complaint phosphatase 79. 12/25 patient examined bedside doing well denies any symptoms. Patient did have an overnight event. Patient had a nonsustained V. tach while she was sleeping but was completely asymptomatic. Cardiology recommended 24-hour monitoring before discharge. Patient is asymptomatic denies any chest pain or breathing difficulty. Hemoglobin is stable at 8.3 white cell count is 12.3 sodium 136 potassium 4.5 BUN 14 creatinine 0.7 calcium 7.6 and AST of 64 ALT 80. Vitals otherwise stable with temp 97. 78 respiratory rate 14 blood pressure 123/46 oxygen saturation 100% on room air. Patient's planned to be discharged home tomorrow 12/26 patient examined bedside denies any symptoms. Patient has been seen by Dr. Monahan and Dr. Fuentes for has cleared the patient to be discharged today. No episodes of arrhythmia overnight. Patient's need for dual antiplatelets with the aspirin and the plantar. Losartan will be initiated at lower dose. Patient to follow with cardiology as outpatient. Discharge exam - Constitutional General appearance: cooperative, no acute distress, appears comfortable - EENT Eyes: anicteric sclerae, pupils equal and round normal appearance ENT: hearing grossly normal - Neck Neck: no lymphadenopathy, normal ROM - Respiratory Respiratory: bilateral: CTA, negative: diminished, dullness, rales, rhonchi - Cardiovascular Rhythm: regular Heart sounds: normal: S1, S2 Abnormal Heart Sounds: Systolic murmur no diastolic murmur - Gastrointestinal General gastrointestinal: normal bowel sounds, soft nontender Discharge Diagnosis 1. Non-ST elevated myocardial infarction with multivessel coronary artery disease status post PTCA stenting of the left main coronary artery, ostial and proximal LAD, ostial and proximal circumflex 2. Hypertension and hypertensive cardiovascular disease. 3. Hyperlipidemia. 4. AMD. 5. History of polio syndrome with left leg weakness. 6. History of diverticulitis and partial colectomy, stable. 7. E. coli acute urinary tract infection. Patient is on ceftriaxone and completed course of antibiotics. 8 nonsustained V. tachycardia -resolved Discharge plan: home with home care with family support Patient Condition at Discharge: Fair Plan - Discharge Summary Discharge Rx Participant: No New Discharge Prescriptions: New Spironolactone [Aldactone] 12.5 mg PO DAILY #30 tab Ticagrelor [Brilinta] 90 mg PO BID #60 tab Losartan [Cozaar] 25 mg PO DAILY #30 tab Atorvastatin [Lipitor] 80 mg PO HS #30 tab Metoprolol Tartrate [Lopressor] 12.5 mg PO BID #60 tab Continue Vit C/E/Zn/Coppr/Lutein/Zeaxan [Preservision Areds 2 Softgel] 1 cap PO DAILY Calcium Carbonate [Calcium] 600 mg PO DAILY Multivit-Min/FA/Lycopen/Lutein [Centrum Silver Tablet] 1 tab PO DAILY Aspirin EC [Ecotrin Low Dose] 81 mg PO DAILY Vitamin B Complex 1 cap PO DAILY Discontinued Losartan [Cozaar] 50 mg PO DAILY Discharge Medication List Calcium Carbonate [Calcium] 600 mg PO DAILY 02/23/17 [History] Vit C/E/Zn/Coppr/Lutein/Zeaxan [Preservision Areds 2 Softgel] 1 cap PO DAILY 02/23/17 [History] Multivit-Min/FA/Lycopen/Lutein [Centrum Silver Tablet] 1 tab PO DAILY 03/26/18 [History] Aspirin EC [Ecotrin Low Dose] 81 mg PO DAILY 12/16/19 [History] Vitamin B Complex 1 cap PO DAILY 12/16/19 [History] Atorvastatin [Lipitor] 80 mg PO HS #30 tab 12/27/19 [Rx] Losartan [Cozaar] 25 mg PO DAILY #30 tab 12/27/19 [Rx] Metoprolol Tartrate [Lopressor] 12.5 mg PO BID #60 tab 12/27/19 [Rx] Spironolactone [Aldactone] 12.5 mg PO DAILY #30 tab 12/27/19 [Rx] Ticagrelor [Brilinta] 90 mg PO BID #60 tab 12/27/19 [Rx] Follow up Appointment(s)/Referral(s): David Yeager MD [STAFF PHYSICIAN] - 1 Week Narciso Pacheco DO [Primary Care Provider] - 1 Week Patient Instructions/Handouts: Heart Attack (GEN), Urinary Tract Infection in Women (DC) Discharge Disposition: HOME WITH HOME HEALTH SERVICES
== END 2019-12-27 14:00 | disposition home or self-care (01) | DRG 215 ==
LOC: EC 16:07 → 3SCARD 18:10 → 2SICU 12-23 12:02
PROVIDERS: ADMIT Internal Medicine Geriatric Medicine; ATTEND Internal Medicine Geriatric Medicine
DX: I21.4 Non-ST elevation (NSTEMI) myocardial infarction (principal); I50.23 Acute on chronic systolic (congestive) heart failure; N39.0 Urinary tract infection, site not specified; I47.2 Ventricular tachycardia; J98.11 Atelectasis; E78.5 Hyperlipidemia, unspecified; I11.0 Hypertensive heart disease with heart failure; I25.10 Atherosclerotic heart disease of native coronary artery without angina pectoris; I27.20 Pulmonary hypertension, unspecified; D64.9 Anemia, unspecified; I95.89 Other hypotension; H35.30 Unspecified macular degeneration; Z20.828 Contact with and (suspected) exposure to other viral communicable diseases; M19.90 Unspecified osteoarthritis, unspecified site; R40.2362 Coma scale, best motor response, obeys commands, at arrival to emergency department; R40.2142 Coma scale, eyes open, spontaneous, at arrival to emergency department; R40.2252 Coma scale, best verbal response, oriented, at arrival to emergency department; I08.3 Combined rheumatic disorders of mitral, aortic and tricuspid valves; B96.20 Unspecified Escherichia coli [E. coli] as the cause of diseases classified elsewhere; G14 Postpolio syndrome; Z79.82 Long term (current) use of aspirin; Z79.899 Other long term (current) drug therapy; Z88.8 Allergy status to other drugs, medicaments and biological substances; Z91.09 Other allergy status, other than to drugs and biological substances; Z90.49 Acquired absence of other specified parts of digestive tract; Z98.890 Other specified postprocedural states; Z98.42 Cataract extraction status, left eye; Z98.41 Cataract extraction status, right eye; Z83.79 Family history of other diseases of the digestive system; Z82.5 Family history of asthma and other chronic lower respiratory diseases; Z82.49 Family history of ischemic heart disease and other diseases of the circulatory system; Z91.81 History of falling
CPT/HCPCS: 36415; 70450; 71045; 71046; 71250; 80048; 80053; 80061; 80074; 81001; 83036; 83605; 83735; 83880; 84132; 84443; 84484; 85025; 85027; 85049; 85347; 85610; 85730; 86850; 86900; 86901; 86920; 87040; 87070; 87077; 87086; 87186; 92978; 93005; 93306; 93308; 93312; 93325; 93458; 93880; 93922; 93970; 94640; 96374; 96375; 99285

== ENCOUNTER 2020-02-29 07:07 | Emergency (ER) | payer MEDICARE ==
--- NOTE | 2020-02-29 07:41 | ED ---
General Adult HPI - General Chief complaint: ENT Stated complaint: nose bleed Time Seen by Provider: 02/29/20 07:31 Source: patient, family, RN notes reviewed Mode of arrival: wheelchair Limitations: no limitations - History of Present Illness Initial comments: Patient is a pleasant 85-year-old female presenting to the emergency Department with complaints of epistaxis. Onset of symptoms was around 10:00 last night. Nose has been bleeding on-and-off since that time. This morning daughter did pack the nose. Patient still feels something in the back of her throat however no bleeding from the front. No history of chronic nosebleeds. Patient is a mbulatory secondary to history of recent cardiac stent placement. This was around 2 months ago. Otherwise no fatigue or weakness or dyspnea. No other areas of bleeding. - Related Data Home Medications Medication Instructions Recorded Confirmed Calcium Carbonate [Calcium] 600 mg PO DAILY 02/23/17 02/29/20 Vit C/E/Zn/Coppr/Lutein/Zeaxan 1 cap PO DAILY 02/23/17 02/29/20 [Preservision Areds 2 Softgel] Multivit-Min/FA/Lycopen/Lutein 1 tab PO DAILY 03/26/18 02/29/20 [Centrum Silver Tablet] Aspirin EC [Ecotrin Low Dose] 81 mg PO DAILY 12/16/19 02/29/20 Vitamin B Complex 1 cap PO DAILY 12/16/19 02/29/20 Previous Rx's Medication Instructions Recorded Atorvastatin [Lipitor] 80 mg PO HS #30 tab 12/27/19 Losartan [Cozaar] 25 mg PO DAILY #30 tab 12/27/19 Metoprolol Tartrate [Lopressor] 12.5 mg PO BID #60 tab 12/27/19 Spironolactone [Aldactone] 12.5 mg PO DAILY #30 tab 12/27/19 Ticagrelor [Brilinta] 90 mg PO BID #60 tab 12/27/19 Allergies Allergy/AdvReac Type Severity Reaction Status Date / Time adhesive Allergy Rash/Hives Verified 02/29/20 08:29 lisinopril Allergy Anaphylaxis Verified 02/29/20 08:29 Review of Systems ROS Statement: Those systems with pertinent positive or pertinent negative responses have been documented in the HPI. ROS Other: All systems not noted in ROS Statement are negative. Constitutional: Denies: fever Eyes: Denies: eye pain ENT: Reports: epistaxis Respiratory: Denies: cough, dyspnea Cardiovascular: Denies: chest pain Endocrine: Denies: fatigue Gastrointestinal: Denies: abdominal pain Genitourinary: Denies: dysuria Musculoskeletal: Denies: back pain Skin: Denies: rash Neurological: Denies: weakness Past Medical History Past Medical History: Hyperlipidemia, Hypertension, Osteoarthritis (OA) Additional Past Medical History / Comment(s): polio AGE 22. RT HIP AND LT KNEE.ANKLE.FOOT AFFECTED(POST POLIO SYNDROME)UES A WALKER WHEN UP, BEGINNING OF MAC DEGENERATION RT EYE. History of Any Multi-Drug Resistant Organisms: None Reported Past Surgical History: Bowel Resection, Cholecystectomy, Orthopedic Surgery Additional Past Surgical History / Comment(s): bladder suspension surgery 3, colonoscopy about 10 years ago showed diverticulosis, cholecystectomy, bilateral cataract surgery. Left leg surgery status post injury. Past Anesthesia/Blood Transfusion Reactions: No Reported Reaction Past Psychological History: No Psychological Hx Reported Smoking Status: Never smoker Past Alcohol Use History: None Reported Past Drug Use History: None Reported - Past Family History Father Family Medical History: Respiratory Disorder Mother Family Medical History: No Reported History Additional Family Medical History / Comment(s): lives to be 101 yo, liver failure Sister(s) Family Medical History: COPD, Fibromyalgia Daughter(s) Family Medical History: No Reported History Son(s) Family Medical History: Myocardial Infarction (NM) General Exam Limitations: no limitations General appearance: alert, in no apparent distress Head exam: Present: normocephalic Eye exam: Present: normal appearance ENT exam: Present: other (Packing nares, left with dried blood. Oral pharynx with mild dried blood) Neck exam: Present: normal inspection Respiratory exam: Present: normal lung sounds bilaterally Cardiovascular Exam: Present: regular rate, normal rhythm GI/Abdominal exam: Present: soft. Absent: tenderness Back exam: Present: normal inspection Neurological exam: Present: alert Psychiatric exam: Present: normal affect, normal mood Skin exam: Present: normal color Course Vital Signs 02/29/20 02/29/20 07:13 07:58 Temperature 98.0 F Pulse Rate 43 L 74 Respiratory 16 18 Rate Blood Pressure 216/40 184/52 O2 Sat by Pulse 100 98 Oximetry - Reevaluation(s) Reevaluation #1: 02/29/20 08:51 Case was discussed with Dr. Garcia who agrees brilinta should be held until follow-up tomorrow with Dr. Gray and he can decide further recommendation at that time. EKG Findings - EKG Comments: EKG Findings:: Normal sinus rhythm at 82. Frequent premature complexes and a bigeminy pattern. NE 140. QRS 72. QT 400. QTc 467. Normal axis. Normal QRS. Nonspecific ST-T. Procedures - Procedures Initial comment: Epistaxis: Verbal consent given. Left knee or had packing from home that was removed with still mild bleeding from left naris. Patient did expel clotted blood by blowing. Additional clotted blood was removed with suction. There were still mild bleeding noted. Rhino Rocket placed without complication and hemostasis was obtained. Medical Decision Making - Medical Decision Making Patient reevaluated and hemostasis remains. Patient and family updated. - Lab Data Result diagrams: 02/29/20 07:53 02/29/20 07:53 Lab Results 02/29/20 02/29/20 02/29/20 Range/Units 07:53 07:53 09:23 WBC 7.4 (3.8-10.6) k/uL RBC 3.68 L (3.80-5.40) m/uL Hgb 11.0 L (11.4-16.0) gm/dL Hct 35.1 (34.0-46.0) % MCV 95.3 D (80.0-100.0) fL MCH 29.9 (25.0-35.0) pg MCHC 31.4 (31.0-37.0) g/dL RDW 15.3 (11.5-15.5) % Plt Count 315 (150-450) k/uL MPV 8.2 Neutrophils % 66 % Lymphocytes % 26 % Monocytes % 5 % Eosinophils % 1 % Basophils % 0 % Neutrophils # 4.9 (1.3-7.7) k/uL Lymphocytes # 1.9 (1.0-4.8) k/uL Monocytes # 0.4 (0-1.0) k/uL Eosinophils # 0.1 (0-0.7) k/uL Basophils # 0.0 (0-0.2) k/uL PT 11.0 (9.0-12.0) sec INR 1.1 (<1.2) APTT 23.3 (22.0-30.0) sec Sodium 140 (137-145) mmol/L Potassium 5.2 H (3.5-5.1) mmol/L Chloride 109 H (98-107) mmol/L Carbon Dioxide 23 (22-30) mmol/L Anion Gap 8 mmol/L BUN 20 H (7-17) mg/dL Creatinine 0.66 (0.52-1.04) mg/dL Est GFR (CKD-EPI)AfAm >90 (>60 ml/min/1.73 sqM) Est GFR (CKD-EPI)NonAf 80 (>60 ml/min/1.73 sqM) Glucose 111 H (74-99) mg/dL Calcium 9.0 (8.4-10.2) mg/dL Total Bilirubin 1.0 (0.2-1.3) mg/dL AST 67 H (14-36) U/L ALT 53 H (4-34) U/L Alkaline Phosphatase 79 (38-126) U/L Total Protein 7.7 (6.3-8.2) g/dL Albumin 3.7 (3.5-5.0) g/dL Disposition Clinical Impression: Epistaxis Disposition: HOME SELF-CARE Condition: Stable Instructions (If sedation given, give patient instructions): Nosebleed (ED) Additional Instructions: Please follow-up with primary care physician in the next couple of days for recheck. Follow up with cardiology tomorrow as planned. Please follow-up with ENT and 3-5 days for packing removal. If unable to have ENT remove packing you may return to emergency department for this. Return for increased bleeding, bleeding from other areas, worsening symptoms or other concerns. Hold Brilinta until directed by Dr. gray when you see him tomorrow Is patient prescribed a controlled substance at d/c from ED?: No Referrals: Narciso Pacheco DO [Primary Care Provider] - 1-2 days Joe Milian MD [STAFF PHYSICIAN] - 1-2 days Time of Disposition: 10:16
[2020-02-29] MEDS ORDERED: OXYMETAZOLINE 0.05% NASL SPRAY 1 SPRAY BOTTLE NASAL STA (08:02)
[2020-02-29 08:19] LABS: ALT 53 U/L (4-34); AST 67 U/L (14-36); African American GFR (CKD) >90 (>60 ml/min/1.73 sqM); Albumin 3.7 g/dL (3.5-5.0); Alkaline Phosphatase 79 U/L (38-126); Anion Gap 8 mmol/L; Blood Urea Nitrogen 20 mg/dL (7-17); Carbon Dioxide 23 mmol/L (22-30); Chloride 109 mmol/L (98-107); Glucose 111 mg/dL (74-99); Non-African American GFR(CKD) 80 (>60 ml/min/1.73 sqM); Sodium 140 mmol/L (137-145); Total Protein 7.7 g/dL (6.3-8.2)
[2020-02-29 08:20] LABS: Potassium 5.2 mmol/L (3.5-5.1)
[2020-02-29 08:23] LABS: Basophils % (A) 0 %; Eosinophils # (A) 0.1 k/uL (0-0.7); Eosinophils % (A) 1 %; HCT 35.1 % (34.0-46.0); Lymphocytes # (A) 1.9 k/uL (1.0-4.8); Lymphocytes % (A) 26 %; MCH 29.9 pg (25.0-35.0); MCHC 31.4 g/dL (31.0-37.0); Mean Platelet Volume 8.2; Monocytes # (A) 0.4 k/uL (0-1.0); Monocytes % (A) 5 %; Neutrophils # (A) 4.9 k/uL (1.3-7.7); Neutrophils % (A) 66 %; Platelet Count 315 k/uL (150-450); RBC 3.68 m/uL (3.80-5.40); RDW 15.3 % (11.5-15.5); WBC 7.4 k/uL (3.8-10.6)
[2020-02-29 08:25] LABS: MCV 95.3 fL (80.0-100.0)
[2020-02-29 09:47] LABS: INR 1.1 (<1.2); Partial Thromboplastin Time 23.3 sec (22.0-30.0)
[2020-02-29 10:43] VITALS: BP 108/74; PULSE 69; RESP 16; TEMP 97.8
== END 2020-02-29 10:43 | disposition home or self-care (01) ==
LOC: EC 07:07
DX: R04.0 Epistaxis (principal); M19.90 Unspecified osteoarthritis, unspecified site; Z79.82 Long term (current) use of aspirin; Z79.899 Other long term (current) drug therapy; Z91.048 Other nonmedicinal substance allergy status; Z88.8 Allergy status to other drugs, medicaments and biological substances; Z90.49 Acquired absence of other specified parts of digestive tract; Z95.5 Presence of coronary angioplasty implant and graft
CPT/HCPCS: 30901; 36415; 80053; 85025; 85610; 85730; 93005; 99283

== ENCOUNTER → 2020-07-20 | Outpatient (CLI) | payer MEDICARE ==
[2020-07-21 05:51] LABS: Chol/HDL Ratio 1.89; LDL Cholesterol,Calculated 38.6 mg/dL (0.0-131.0); VLDL Calculation 19.4 mg/dL (5.00-40.00)
== END | disposition home or self-care (01) ==
LOC: LABWHC1 11:56
PROVIDERS: ATTEND Nurse Practitioner Adult Health
DX: E78.2 Mixed hyperlipidemia (principal)
CPT/HCPCS: 36415; 80061; 84450; 84460

== ENCOUNTER → 2020-08-15 | Outpatient (CLI) | payer MEDICARE ==
--- NOTE | 2020-08-16 11:00 | MM ---
Reason for exam: screening (asymptomatic). Last mammogram was performed 2 years ago. History: Patient is postmenopausal. Benign stereotactic core biopsy of the right breast, June 27, 1999. 2 benign cyst aspirations of the left breast. Excisional biopsy of the left breast. Physical Findings: A clinical breast exam by your physician is recommended on an annual basis and results should be correlated with mammographic findings. MG Screening Mammo w CAD Bilateral CC and MLO view(s) were taken. Prior study comparison: August 28, 2018, bilateral MG 3d screening mammo w/cad. March 12, 2017, bilateral MG 3d screening mammo w/cad. The breast tissue is heterogeneously dense. This may lower the sensitivity of mammography. Finding: There are typically benign vascular, round, linear calcifications. Previous mammotome biopsy in the right breast. There is a chronic nodularity in the left breast. There is no discrete abnormality. ASSESSMENT: Benign, BI-RAD 2 RECOMMENDATION: Routine screening mammogram of both breasts in 1 year.
== END | disposition home or self-care (01) ==
LOC: RADMAMWWP 16:06
PROVIDERS: ATTEND Family Medicine
DX: Z12.31 Encounter for screening mammogram for malignant neoplasm of breast (principal); Z78.0 Asymptomatic menopausal state
CPT/HCPCS: 77067

== ENCOUNTER → 2021-09-14 | Outpatient (CLI) | payer MEDICARE ==
--- NOTE | 2021-09-15 08:14 | MM ---
Reason for Exam: Screening (asymptomatic). Last mammogram was performed 1 year(s) and 1 month(s) ago. Patient History: Menarche at age 11. First Full-Term at age 19. Hysterectomy at age 22. Postmenopausal. Benign Cyst Aspiration on the left side. Benign Cyst Aspiration on the left side. Excisional Biopsy on the Left side. 06/27/1999, Benign Stereotactic Core Biopsy on the right side. Prior Study Comparison: 03/12/2017 Bilateral Screening Mammogram, [facility]. 08/28/2018 Bilateral Screening Mammogram, [facility]. 08/15/2020 Bilateral Screening Mammogram, [facility]. Tissue Density: The breast tissue is extremely dense which could obscure a lesion on mammography. Findings: Analyzed By CAD. There is no suspicious group of microcalcifications or new suspicious mass in either breast. Stable bilateral calcifications. Overall Assessment: Benign, BI-RAD 2 Management: Screening Mammogram of both breasts in 1 year. A clinical breast exam by your physician is recommended on an annual basis and results should be correlated with mammographic findings. Electronically signed and approved by: Santiago Sharif M.D. Radiologis
== END | disposition home or self-care (01) ==
LOC: RADMAMWWP 10:54
PROVIDERS: ATTEND Family Medicine
DX: Z12.31 Encounter for screening mammogram for malignant neoplasm of breast (principal)
CPT/HCPCS: 77067

== ENCOUNTER → 2022-12-10 | Outpatient (CLI) | payer MEDICARE ==
--- NOTE | 2022-12-11 22:36 | MM ---
Reason for Exam: Screening (asymptomatic). Last mammogram was performed 1 year(s) and 3 month(s) ago. Patient History: Menarche at age 11. First Full-Term at age 19. Hysterectomy at age 22. Postmenopausal. Benign Cyst Aspiration on the left side. Benign Cyst Aspiration on the left side. Excisional Biopsy on the Left side. 06/27/1999, Benign Stereotactic Core Biopsy on the right side. Prior Study Comparison: 08/28/2018 Bilateral Screening Mammogram, [facility]. 08/15/2020 Bilateral Screening Mammogram, [facility]. 09/14/2021 Bilateral MG screening mammo w CAD, [facility]. Tissue Density: The breast tissue is heterogeneously dense. This may lower the sensitivity of mammography. Findings: Analyzed By CAD. Benign bilateral vascular, secretory, and oil cyst calcifications are redemonstrated. There is no suspicious group of microcalcifications or new suspicious mass in either breast. Overall Assessment: Benign, BI-RAD 2 Management: Screening Mammogram of both breasts in 1 year. . Patient should continue monthly self-breast exams. A clinical breast exam by your physician is recommended on an annual basis. This exam should not preclude additional follow-up of suspicious palpable abnormalities. Note on Isha scores and lifetime risk: 1. A Isha score greater than 3% is considered moderate risk. If this is the case, consider specialist referral to assess eligibility for a risk reducing agent. 2. If overall lifetime risk for the development of breast cancer is 20% or higher, the patient may qualify for future screening with alternating mammogram and breast MRI. Electronically signed and approved by: Kareem Jacinto M.D. Radiologist
== END | disposition home or self-care (01) ==
LOC: RADMAMWWP 13:15
PROVIDERS: ATTEND Family Medicine
DX: Z12.31 Encounter for screening mammogram for malignant neoplasm of breast (principal); Z78.0 Asymptomatic menopausal state
CPT/HCPCS: 77063; 77067

== ENCOUNTER → 2024-01-07 | Outpatient (CLI) | payer MEDICARE ==
[2024-01-07 15:23] LABS: ALT 35 U/L (8-44); AST 32 U/L (13-35); Albumin 3.8 g/dL (3.8-4.9); Albumin/Globulin Ratio 1.41 Ratio (1.60-3.17); Alkaline Phosphatase 79 U/L (41-126); Blood Urea Nitrogen 19.2 mg/dL (9.0-27.0); Calcium 9.2 mg/dL (8.7-10.3); Carbon Dioxide 20.2 mmol/L (21.6-31.8); Chloride 109 mmol/L (96-109); Chol/HDL Ratio 1.72 Ratio; Globulin 2.7 g/dL (1.6-3.3); Glucose 86 mg/dL (70-110); LDL Cholesterol,Calculated 35.5 mg/dL (0.0-131.0); Potassium 4.6 mmol/L (3.5-5.5); Sodium 140 mmol/L (135-145); Total Bilirubin 0.4 mg/dL (0.3-1.2); Total Protein 6.5 g/dL (6.2-8.2); VLDL Calculation 18.16 mg/dL (5.00-40.00)
== END | disposition home or self-care (01) ==
LOC: LABWHC1 11:11
PROVIDERS: ATTEND Internal Medicine Interventional Cardiology
DX: E78.2 Mixed hyperlipidemia (principal)
CPT/HCPCS: 36415; 80053; 80061

== ENCOUNTER → 2024-01-16 | Outpatient (CLI) | payer MEDICARE ==
--- NOTE | 2024-01-17 11:52 | MM ---
Reason for Exam: Screening (asymptomatic). Last mammogram was performed 1 year(s) and 1 month(s) ago. Patient History: Menarche at age 11. First Full-Term at age 19. Hysterectomy at age 22. Postmenopausal. Benign Cyst Aspiration on the left side. Benign Cyst Aspiration on the left side. Excisional Biopsy on the Left side. 06/27/1999, Benign Stereotactic Core Biopsy on the right side. Prior Study Comparison: 08/15/2020 Bilateral Screening Mammogram, [facility]. 09/14/2021 Bilateral MG screening mammo w CAD, [facility]. 12/10/2022 Bilateral MG 3D screening mammo w/cad, [facility]. Tissue Density: The breasts are heterogeneously dense, which may obscure small masses. Findings: Analyzed By CAD. Right breast: There is no suspicious group of microcalcifications or new suspicious mass. Benign-appearing calcifications right breast. Left breast: There is no suspicious group of microcalcifications or new suspicious mass. Benign-appearing calcifications left breast. Overall Assessment: Benign, BI-RAD 2 Management: Screening Mammogram of both breasts in [address] [facility] will attempt to contact patient to return for supplemental views and ultrasound if indicated. Patient should continue monthly self-breast exams. A clinical breast exam by your physician is recommended on an annual basis. This exam should not preclude additional follow-up of suspicious palpable abnormalities. Note on Isha scores and lifetime risk: 1. A Isha score greater than 3% is considered moderate risk. If this is the case, consider specialist referral to assess eligibility for a risk reducing agent. 2. If overall lifetime risk for the development of breast cancer is 20% or higher, the patient may qualify for future screening with alternating mammogram and breast MRI. [facility], , 01/17/2024 11:46 AM. Electronically signed and approved by: Stef Joel DO
== END ==
LOC: RADMAMWWP 11:17
PROVIDERS: ATTEND Family Medicine
CPT/HCPCS: 77063; 77067